=== PATIENT | female | born 1945 | race Caucasian/White ===

== ENCOUNTER → 2016-10-08 | Outpatient (REF) | payer OTHER ==
[~2016-10-08] MED LIST: ASPI81TA83 OR; ATEN100T OR; CALCTAB93 PO; DEPA500T OR; GLUC500T3 PO; LIPI80TA OR; MECL25TA2 OR; PRIL40CA OR; SINGULAR PO; VITAMIN B PO; VITAMIN D PO; [UNRECOGNIZED DRUG - OTHER] PO
[2016-10-08 18:22] LABS: FOLATE 12.4 NG/ML; VITAMIN B12 LEVEL 295 PG/ML
[2016-10-08 18:29] LABS: ALBUMIN 4.2 GM/DL (3.2-5.2); ALBUMIN/GLOBULIN RATIO 1.45 (1.00-1.93); ALKALINE PHOSPHATASE 110 U/L (45-117); ALT/SGPT 26 U/L (12-78); ANION GAP 6 MEQ/L (8-16); AST/SGOT 16 U/L (15-37); BILIRUBIN,TOTAL 0.2 MG/DL (0.2-1.0); BLOOD UREA NITROGEN 12 MG/DL (7-18); CARBON DIOXIDE LEVEL 28 MEQ/L (21-32); CHLORIDE LEVEL 109 MEQ/L (98-107); CREATININE FOR GFR 0.63 MG/DL (0.55-1.02); GLOMERULAR FILTRATION RATE > 60.0 (>39); GLUCOSE, FASTING 102 MG/DL (83-110); POTASSIUM SERUM 4.2 MEQ/L (3.5-5.1); SODIUM LEVEL 143 MEQ/L (136-145); TOTAL PROTEIN 7.1 GM/DL (6.4-8.2)
[2016-10-08 18:34] LABS: BASO % 0.4 % (0.0-1.0); EOS # 0.1 K/mm3 (0.0-0.50); EOS % 1.3 % (0.0-3.0); LARGE UNSTAINED CELL # 0.1 K/mm3 (0.0-0.4); LARGE UNSTAINED CELL % 2.3 % (0.0-4.0); LYMPH # 1.3 K/mm3 (1.5-4.5); LYMPH % 27.9 % (24.0-44.0); MEAN CORPUSCULAR HEMOGLOBIN 29.7 pg (27.0-33.0); MEAN CORPUSCULAR HGB CONC 33.5 g/dl (32.0-36.5); MEAN CORPUSCULAR VOLUME 88.5 fl (80.0-96.0); MONO # 0.2 K/mm3 (0.0-0.8); MONO % 3.5 % (0.0-5.0); NEUTROPHILS % 64.5 % (36.0-66.0); PLATELET COUNT, AUTOMATED 201 k/mm3 (150-450); RED CELL DISTRIBUTION WIDTH 13.3 % (11.5-14.5); WHITE BLOOD COUNT 4.7 K/mm3 (4.0-10.0)
[2016-10-08 19:24] LABS: ERYTHROCYTE SEDIMENTATION RATE 7 mm/hr (0-30)
[2016-10-13 10:39] LABS: ALBUMIN 4.38 GM/DL (3.29-5.55); ALBUMIN % 61.7 % (55.8-66.1); GAMMA GLOBULIN % 14.1 % (11.1-18.8)
== END ==
LOC: M LABNEURO 17:13
PROVIDERS: ATTEND Psychiatry & Neurology Neurology
DX: R51 Headache (principal); R41.3 Other amnesia; Z79.899 Other long term (current) drug therapy

== ENCOUNTER → 2017-08-09 | Outpatient (REF) | payer OTHER ==
[~2017-08-09] MED LIST changes: +LEVO75TA4 PO; +LOSA25TA8 PO
[2017-08-10 19:04] LABS: VITAMIN B12 LEVEL 261 PG/ML (247-911)
== END ==
LOC: M LAB REF 17:41
PROVIDERS: ATTEND Family Medicine
DX: F03.91 Unspecified dementia, unspecified severity, with behavioral disturbance (principal)

== ENCOUNTER 2018-12-06 18:40 | Inpatient (IN) | payer MEDICARE, OTHER ==
[~2018-12-06] VITALS: Ht 162.6 cm; Wt 63.6 kg
[~2018-12-06 18:40] MED LIST changes: +LOSA25TA14 PO; -LOSA25TA8 PO
[2018-12-06] MEDS ORDERED: cbd gummies (18:57)
[2018-12-06 19:22] LABS: BASO % 0.4 % (0.0-1.0); EOS % 0.4 % (0.0-3.0); HEMATOCRIT 35.4 % (36.0-47.0); HEMOGLOBIN 11.8 g/dl (12.0-15.5); LYMPH # 1.6 10^3/uL (1.5-4.5); LYMPH % 29.8 % (24.0-44.0); MEAN CORPUSCULAR HEMOGLOBIN 29.4 pg (27.0-33.0); MEAN CORPUSCULAR HGB CONC 33.3 g/dl (32.0-36.5); MEAN CORPUSCULAR VOLUME 88.1 fl (80.0-96.0); MONO # 0.4 10^3/uL (0.0-0.8); MONO % 6.4 % (0.0-5.0); NEUTROPHILS # 3.5 10^3/uL (1.8-7.7); NEUTROPHILS % 62.6 % (36.0-66.0); PLATELET COUNT, AUTOMATED 250 10^3/uL (150-450); RED BLOOD COUNT 4.02 10^6/uL (4.00-5.40); WHITE BLOOD COUNT 5.5 10^3/uL (4.0-10.0)
[2018-12-06 19:26] LABS: INR 0.96; PARTIAL THROMBOPLASTIN TIME 27.5 SECONDS (25.4-37.6); PROTHROMBIN TIME 12.9 SECONDS (12.1-14.4)
[2018-12-06 19:38] LABS: BLOOD UREA NITROGEN 11 MG/DL (7-18); CALCIUM LEVEL 8.2 MG/DL (8.8-10.2); CARBON DIOXIDE LEVEL 29 MEQ/L (21-32); CHLORIDE LEVEL 108 MEQ/L (98-107); CPK CREATINE PHOSPHOKINASE 150 U/L (26-192); CREATININE FOR GFR 0.79 MG/DL (0.55-1.30); GLOMERULAR FILTRATION RATE > 60.0 (>39); GLUCOSE, FASTING 133 MG/DL (70-100); MB/CK RELATIVE INDEX 1.67 (< OR =4); POTASSIUM SERUM 3.5 MEQ/L (3.5-5.1); SODIUM LEVEL 142 MEQ/L (136-145); TROPONIN I < 0.02 NG/ML (< 0.10)
--- NOTE | 2018-12-06 19:38 | REPVR ---
EXAM: CT Head Without Contrast EXAM DATE/TIME: 12/06/2018 7:19 PM CLINICAL HISTORY: 73 years old, female; Pain; Headache; Additional info: Syncope TECHNIQUE: Axial computed tomography images of the head/brain without contrast. All CT scans at this facility use at least one of these dose optimization techniques: automated exposure control; mA and/or kV adjustment per patient size (includes targeted exams where dose is matched to clinical indication); or iterative reconstruction. COMPARISON: CT Head without contrast 07/28/2017 1:40 PM FINDINGS: Brain: There is parenchymal volume loss. White matter changes are demonstrated in the subcortical, centrum semiovale and periventricular white matter consistent with small vessel white matter angiopathic gliosis. Ventricles: The degree of ventricular dilatation is normal for age. No pathologic enlargement demonstrated. Bones/joints: Unremarkable. No acute fracture. Sinuses: Visualized sinuses are unremarkable. No acute sinusitis. Mastoid air cells: Visualized mastoid air cells are unremarkable. No mastoid effusion. Soft tissues: Unremarkable. IMPRESSION: There is parenchymal volume loss. White matter changes are demonstrated in the subcortical, centrum semiovale and periventricular white matter consistent with small vessel white matter angiopathic gliosis. Electronically signed by: Geoffrey Limon On 12/06/2018 19:38:28 PM
--- NOTE | 2018-12-06 21:21 | ECGEPIP ---
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
[2018-12-06] MEDS ORDERED: CBD GUMMIES PO (21:54)
[2018-12-06] MEDS ORDERED: hydrALAZINE INJ 20 MG/ML VIAL As Ordered ONE (22:53)
[2018-12-06] MEDS ORDERED: hydrALAZINE INJ 20 MG/ML VIAL IV ONE (23:15)
[2018-12-06] MEDS ORDERED: NS 1,000 ML IV SCH (23:24)
[2018-12-06] MEDS ORDERED: hydrALAZINE INJ 20 MG/ML VIAL IV PRN (23:45)
[2018-12-06 23:55] LABS: FREE T4 0.97 NG/DL (0.76-1.46); MAGNESIUM LEVEL 2.4 MG/DL (1.8-2.4)
--- NOTE | 2018-12-07 | HPE ---
DATE OF ADMISSION: 12/06/2018 CHIEF COMPLAINT: Recurrent syncope. HISTORY OF THE PRESENT ILLNESS: The patient is a 73-year-old female, significant past medical history of dementia, who presents to the emergency room accompanied by her with 3-4 episodes of syncope that all occurred today. The patient is a very poor historian, unable to give any history. She is alert and oriented to person only. As per , she had 3-4 syncopal episodes today that did not appear to be preceded by any symptoms. She was caught all three times. As per the , she did not fall or hit the floor. She denies any chest pain, shortness of breath, or palpitations. Again, the patient is very unreliable. She is not aware of where she is at this moment in time. Labs thus far have been unremarkable. She does not take any medications. In the emergency room, her blood pressure was noted to be elevated in systolic 180s; however, states that all of her medications were stopped by her primary care physician several months ago. PAST MEDICAL HISTORY: See history of the present illness. PAST SURGICAL HISTORY: Hysterectomy as well as bowel resection. ALLERGIES: No known drug allergies. SOCIAL HISTORY: She denies tobacco, alcohol, or illicit drug use. FAMILY HISTORY: Noncontributory. HOME MEDICATIONS: None. REVIEW OF SYSTEMS: Unable to complete as the patient has underlying dementia. VITAL SIGNS ON ADMISSION: Temperature 98, pulse of 93, respirations are 16, blood pressure 187/86, saturating at 96% on room air. PHYSICAL EXAM: General: She is a pleasant elderly female in no apparent distress. Head is normocephalic, atraumatic Eyes: Extraocular movements are intact. Pupils equal, round, reactive to light. Neck is supple. No jugular venous pressure (JVP). Lungs: Clear to auscultation. No crackles, wheezes, rales, or rhonchi. Cardiovascular: Regular rate and rhythm. Normal S1, S2. No murmurs, gallops, or rubs. Abdomen: Soft, nontender, nondistended. Positive bowel sounds. No rebound, no guarding. Extremities: No pitting edema or calf tenderness. Skin: Intact. No rashes, lesions, or breakdown. Neurological: Alert and oriented times three. No focal deficit appreciated on the exam. LABS AND IMAGING: Done in the emergency room. Hemoglobin and hematocrit of 11 over 34, platelet count of 250. Coagulation tests (coags) within normal limits. Chemistry shows a BUN and creatinine of 11 over 0.79. Troponins are negative. TSH is 7.2. UA is unremarkable. Fingerstick 143. CT of the head: Parenchymal volume loss, white matter changes demonstrated in the subcortical centrum semiovale and periventricular white matter consistent with small vessel ischemic disease. Chest x-ray shows no acute disease. ASSESSMENT AND PLAN: Recurrent syncope. Differentials include vasovagal versus orthostatics, versus arrhythmia. Rule out transient ischemic attack (TIA), CVA, vertebrobasilar insufficiency. Less likely to be seizures. Rule out acute coronary syndrome (ACS), structural heart disease. Will keep the patient on telemetry. Will get echo, ultrasound carotid Dopplers, MRI. Will check magnesium. Will recycle the troponins as well as serial EKGs. Will gently fluid hydrate. Daily orthostatics. TSH of 7.2. Will check free T4. Dementia, stable. Supportive: Deep vein thrombosis (DVT) prophylaxis: Heparin subcu. Gastrointestinal (GI) prophylaxis: Not indicated. Diet: Regular. MTDD
[2018-12-07] MEDS: HEPARIN SOD (PORCINE) 5000 UNITS/ML VIAL SC SCH ×2 (05:35→14:00)
[2018-12-07] MEDS ORDERED: amLODIPine 5 MG TAB As Ordered ONE (05:49)
[2018-12-07] MEDS: amLODIPine 5 MG TAB PO SCH ×2 (06:00→08:58)
[2018-12-07] MEDS: ACETAMINOPHEN TAB 650MG DOSE (2X325MG) PO PRN (06:04)
[2018-12-07 07:10] LABS: HEMATOCRIT 37.7 % (36.0-47.0); HEMOGLOBIN 12.5 g/dl (12.0-15.5); MEAN CORPUSCULAR HEMOGLOBIN 28.5 pg (27.0-33.0); MEAN CORPUSCULAR HGB CONC 33.2 g/dl (32.0-36.5); MEAN CORPUSCULAR VOLUME 86.1 fl (80.0-96.0); PLATELET COUNT, AUTOMATED 260 10^3/uL (150-450); RED BLOOD COUNT 4.38 10^6/uL (4.00-5.40); WHITE BLOOD COUNT 5.8 10^3/uL (4.0-10.0)
[2018-12-07 07:37] LABS: BLOOD UREA NITROGEN 8 MG/DL (7-18); CALCIUM LEVEL 8.6 MG/DL (8.8-10.2); CARBON DIOXIDE LEVEL 24 MEQ/L (21-32); CHLORIDE LEVEL 111 MEQ/L (98-107); CREATININE FOR GFR 0.59 MG/DL (0.55-1.30); GLOMERULAR FILTRATION RATE > 60.0 (>39); GLUCOSE, FASTING 139 MG/DL (70-100); POTASSIUM SERUM 3.4 MEQ/L (3.5-5.1); SODIUM LEVEL 142 MEQ/L (136-145); TROPONIN I < 0.02 NG/ML (< 0.10)
[2018-12-07] MEDS ORDERED: POTASSIUM CHLORIDE 10 MEQ SR TABLET PO ONE ×2 (08:15→11:30)
--- NOTE | 2018-12-07 08:28 | REP ---
PA AND LATERAL CHEST: 12/06/2018. Comparison portable chest 07/28/2017, PA and lateral 02/05/2011. Clinical history: Syncope. Findings: The lung rodriguez are well inflated and without infiltrate, effusion, atelectasis or mass. The heart, mediastinal and hilar contours are normal. The aorta is tortuous but without gross aneurysm, it is unchanged. No abnormal widening of the mediastinum. Airway intact. Bony thorax with some degenerative changes in the spine and shoulders but without compression deformity of destructive lesion. Right upper quadrant clips from prior cholecystectomy. Impression: 1. No acute cardiopulmonary change. Electronically Signed by Jorge Rae MD 12/07/2018 09:43 P
[2018-12-07 08:30] VITALS: BP_SYST 115; BP_SYST 141; BP_DIAS 58; BP_DIAS 64; BP_DIAS 70
--- NOTE | 2018-12-07 08:46 | REP ---
Bilateral carotid artery duplex ultrasound: Comparison is 02/06/2011. Peak flow velocity analysis: RIGHT LEFT ICA Peak flow velocity cm/sec 72.0 61.5 ICA Diastolic flow velocity cm/sec 17.9 14.8 ICA/CCA Ratio 0.76 0.38 ECA Peak flow velocity cm/sec 117.7 110.3 CCA Peak flow velocity cm/sec 94.5 104.4 There is intimal thickening in the bulbs bilaterally. No other atheromatous plaque is identified. Peak flow velocities are normal bilaterally. The findings indicate less than 50% narrowing bilaterally. There is no stenosis on the right on the left. There is no interval change. There is antegrade flow in the vertebral arteries bilaterally. Electronically Signed by Vick Carlson MD 12/07/2018 08:38 A
[2018-12-07] MEDS ORDERED: amLODIPine 5 MG TAB PO SCH (09:00)
--- NOTE | 2018-12-07 11:16 | REP ---
MR BRAIN WITHOUT CONTRAST: HISTORY: Syncope. COMPARISON: 02/06/2011 Areas of increased signal intensity on T2-weighted images are present in the periventricular and subcortical white matter and hemant. This represents small vessel ischemic disease. There is no intraparenchymal hemorrhage, infarct, mass or midline shift. The ventricular and cortical sulci are dilated consistent with mild volume loss. There is no extracerebral collection. Mucosal thickening is present in the maxillary sinuses. IMPRESSION: Small vessel ischemic disease. Mild volume loss. Electronically Signed by Robby Whitmore MD 12/07/2018 11:21 A
[2018-12-07] MEDS ORDERED: LORazepam 0.5 MG TAB PO ONE (11:30)
[2018-12-07 11:47] LABS: MAGNESIUM LEVEL 2.5 MG/DL (1.8-2.4)
[2018-12-07 14:00] VITALS: BP 145/73
[2018-12-07 15:20] VITALS: BP 144/76
--- NOTE | 2018-12-07 17:03 | IPNPDOC ---
Text Note Date of Service The patient was seen on 12/07/18. NOTE Subjective: Patient is a 73-year-old female with a history of dementia who presented to the hospital yesterday after having 4 presyncopal episodes. Patient's family was in the room and provided most of the history. They said that patient never lost full consciousness. Patient was caught all 4 times prior to hitting the ground. They stated that patient did not complain of any dizzi ness before falling. Patient complains that she feels that she is very shaky and will sometimes have difficulty standing up. Patient's primary care provider had discontinued all medications a while back. Patient's family says patient had been on Aricept and Namenda however, these were discontinued because they were not helping. Review of systems General: Patient denies fevers HEENT: Patient denies headaches Cardiovascular: Patient denies chest pain Respiratory: Patient denies shortness of breath, cough GI: Patient denies abdominal pain, nausea, vomiting, diarrhea : Patient denies pain or difficulty with urination Neurological: Patient denies numbness or tingling in extremities Extremities: Patient denies swelling or pain in extremities Objective: Vitals: (see below) General: During interview and exam, patient was mostly sitting on the bed however, 3 times during exam patient would complain about being shaky and then began to cry. Patient was easily consolable and redirectable. While at rest, patient did not have any tremor. HEENT: Normocephalic, atraumatic, moist mucous membranes. Neck: No JVD or lymphadenopathy Cardiac: RRR, No murmurs Pulm: Clear to auscultation b/l. No wheezing, rhonchi Abd: NT/ND + BS Ext: No edema or cyanosis. Radial, posterior tibial, and dorsalis pedis pulses equal bilaterally. Neuro: Cranial nerves III through XII intact grossly bilaterally. Patient has 5/5 strength in upper and lower extremities. Patient did not have any pronator drift or tremor. Finger to nose testing was difficult as patient was unable to follow directions. Labs (see below) Images: An MRI of the brain performed on 12/07/2018 showed small vessel ischemic disease and mild volume loss. A carotid ultrasound performed on 12/07/2017 showed no significant stenosis and anterograde flow of the vertebral arteries bilaterally. A chest x-ray performed on 12/06/2018 showed no acute cardiopulmonary change. A head CT performed on 12/06/2017 showed parenchymal volume loss, weight matter changes demonstrated in the subcortical, centrum semiovale, and periventricular white matter consistent with small vessel white matter angiopathic gliosis Assessment/Plan 1. Recurrent presyncopal episodes. Orthostatic blood pressure was done and was positive today. Patient was given IV fluid. Patient's syncopal episodes at home were not brought on by going from seated to standing. Patient had been standing prior to the falls. MRI carotid ultrasound were negative. Patient will be on telemetry for 48-72 hours to rule out arrhythmia as a cause. Echocardiogram has been done and read is pending. We will continue to monitor the patient. Patient is very anxious which may have played a role in patient's episodes. 2. Dementia. This is stable at this time and we will continue to monitor. DVT prophy: Heparin 5000 units subcutaneous every 8 hours Dispo: Pending clinical improvement VS,Fishbone, I+O VS, Fishbone, I+O Laboratory Tests 12/06/18 18:59 Red Blood Count 4.02, Mean Corpuscular Volume 88.1, Mean Corpuscular Hemoglobin 29.4, Mean Corpuscular Hemoglobin Concent 33.3, Red Cell Distribution Width 13.9, Neutrophils (%) (Auto) 62.6, Lymphocytes (%) (Auto) 29.8, Monocytes (%) (Auto) 6.4 H, Eosinophils (%) (Auto) 0.4, Basophils (%) (Auto) 0.4, Neutrophils # (Auto) 3.5, Lymphocytes # (Auto) 1.6, Monocytes # (Auto) 0.4, Eosinophils # (A uto) 0.0, Basophils # (Auto) 0.0, Calcium Level 8.2 L, Total Creatine Kinase 150 12/07/18 06:26 Red Blood Count 4.38, Mean Corpuscular Volume 86.1, Mean Corpuscular Hemoglobin 28.5, Mean Corpuscular Hemoglobin Concent 33.2, Red Cell Distribution Width 13.8, Calcium Level 8.6 L Vital Signs Date Time Temp Pulse Resp B/P (MAP) Pulse Ox O2 Delivery O2 Flow Rate FiO2 12/07/18 15:20 97.7 89 18 144/76 (98) 95 12/07/18 05:27 Room Air GME ATTESTATION GME ATTESTATION My faculty preceptor for this patient encounter was physically present during the encounter and was fully available. All aspects of the patient interview, examination, medical decision making process, and medical care plan development were reviewed and approved by the faculty preceptor. The faculty preceptor is aware and concurs with the plan as stated in the body of this note and will attest to such by his/her cosignature. ATTENDING NOTE I have both independently examined this patient as well as reviewed the note I have discussed in detail the findings and plan of treatment as documented in the note. I will continue to follow the patient and offer further guidance to the patients care as necessary during this hospital stay. JOESPH Desouza MD, DO Dec 07, 2018 17:03 OLIVER DAVIDSON MD Dec 07, 2018 19:18
--- NOTE | 2018-12-07 17:39 | ECGEPIP ---
Stationary ECG Study 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
--- NOTE | 2018-12-07 20:55 | ECHO ---
DATE OF PROCEDURE: 12/07/2018 REFERRING PHYSICIAN: Kan Bennett MD [employer]LOADING EQUIPMENT TENDER: Fransisco Shepherd MD PATIENT LOCATION: Room: ED #7. REASON FOR ECHOCARDIOGRAM: Syncope. 2D MEASUREMENTS: IVS: 0.98 cm LV: 4.1 cm LVPW: 1.0 cm LA: 3.5 cm Aorta: 3.0 cm IVC: 1.9 cm DOPPLER MEASUREMENTS: Peak velocity across the aortic valve: 1.1 m/s Peak velocity across the LVOT: 0.9 m/s Mitral E: 0.7, Mitral A: 1.0, with a ratio of 0.7 Maximum tricuspid valve velocity: 2.3 m/s 2D COMMENTS: 1. Normal left ventricular size, wall thickness and normal global left ventricular systolic function. The estimated left ventricular systolic ejection fraction is 65 to 70%. 2. Normal left atrium. The right atrium and the right ventricle appeared to be minimally enlarged on limited views, but seem to be off axis. 3. Normal aortic root. 5. No pericardial effusion seen. 6. Minimally calcified aortic valve with normal leaflet excursion. Mildly calcified mitral annulus with normal anterior mitral valve leaflet motion. Normal tricuspid valve. The pulmonic valve and proximal pulmonary artery branches were not well visualized. 7. The inferior vena cava was normal in size, central venous pressure is probably normal. DOPPLER: It detects mild aortic regurgitation, trace mitral regurgitation, and trace tricuspid regurgitation. The calculated pulmonary artery systolic pressure was normal. Abnormal relaxation pattern was noted across the mitral valve leaflets as well as the mitral valve annulus consistent with some features of left ventricular diastolic dysfunction. IMPRESSION: 1. Global left ventricular systolic function. There are features of left ventricular diastolic dysfunction manifested by abnormal relaxation. 2. Aortic valve sclerosis with mild aortic regurgitation, but no aortic stenosis. 3. Trace mitral regurgitation with mitral annulus calcification. 4. Trace tricuspid regurgitation with a normal calculated pulmonary artery systolic pressure.
[2018-12-07 22:00] VITALS: BP 132/70
[2018-12-08] MEDS: HEPARIN SOD (PORCINE) 5000 UNITS/ML VIAL SC SCH ×4 (00:36→21:14)
[2018-12-08 06:00] VITALS: BP 160/80
[2018-12-08 06:23] LABS: HEMATOCRIT 37.5 % (36.0-47.0); HEMOGLOBIN 12.3 g/dl (12.0-15.5); MEAN CORPUSCULAR HEMOGLOBIN 28.5 pg (27.0-33.0); MEAN CORPUSCULAR HGB CONC 32.8 g/dl (32.0-36.5); MEAN CORPUSCULAR VOLUME 86.8 fl (80.0-96.0); PLATELET COUNT, AUTOMATED 224 10^3/uL (150-450); RED BLOOD COUNT 4.32 10^6/uL (4.00-5.40); WHITE BLOOD COUNT 4.5 10^3/uL (4.0-10.0)
[2018-12-08 06:52] LABS: BLOOD UREA NITROGEN 7 MG/DL (7-18); CALCIUM LEVEL 8.5 MG/DL (8.8-10.2); CARBON DIOXIDE LEVEL 23 MEQ/L (21-32); CHLORIDE LEVEL 110 MEQ/L (98-107); CREATININE FOR GFR 0.58 MG/DL (0.55-1.30); GLOMERULAR FILTRATION RATE > 60.0 (>39); GLUCOSE, FASTING 134 MG/DL (70-100); MAGNESIUM LEVEL 2.5 MG/DL (1.8-2.4); POTASSIUM SERUM 3.7 MEQ/L (3.5-5.1); SODIUM LEVEL 142 MEQ/L (136-145)
[2018-12-08 07:00] VITALS: BP_SYST 172; BP_SYST 180; BP_SYST 182; BP_DIAS 80; BP_DIAS 90
[2018-12-08 08:26] VITALS: BP 153/102
[2018-12-08] MEDS: amLODIPine 5 MG TAB PO SCH (08:58)
[2018-12-08 10:48] LABS: CPK CREATINE PHOSPHOKINASE 94 U/L (26-192); MB/CK RELATIVE INDEX 1.38 (< OR =4); TROPONIN I < 0.02 NG/ML (< 0.10)
[2018-12-08 14:00] VITALS: BP 136/66
--- NOTE | 2018-12-08 14:47 | IPNPDOC ---
Text Note Date of Service The patient was seen on 12/08/18. NOTE Subjective: Patient is a 73-year-old female who presented with 4 presyncopal episodes at home. Patient never lost consciousness and patient was caught before hitting the ground on all 4 occasions. Patient was very anxious yesterday. Today patient was complaining of chest pain especially with taking a deep breath. Patient was very anxious during this episode. This episode resolved with deep breathing. When I went back to Dr. the patient later in the morning, patient was smiling and feeling much better. Patient has had no events on telemetry and has not felt lightheaded in the hospital. Review of systems General: Patient denies fevers HEENT: Patient denies headaches Cardiovascular: Patient denies chest pain Respiratory: Patient denies shortness of breath, cough GI: Patient denies abdominal pain, nausea, vomiting, diarrhea : Patient denies pain or difficulty with urination Neurological: Patient denies numbness or tingling in extremities Extremities: Patient denies swelling or pain in extremities Objective: Vitals: (see below) General: No acute distress, laying comfortably in bed. HEENT: Normocephalic, atraumatic, moist mucous membranes. Neck: No JVD or lymphadenopathy Cardiac: RRR, No murmurs Pulm: Clear to auscultation b/l. No wheezing, rhonchi Abd: NT/ND + BS Ext: No edema or cyanosis. Radial, posterior tibial, and dorsalis pedis pulses equal bilaterally. Labs (see below) Images: No new imaging is been performed. Assessment/Plan 1. Recurrent presyncopal episodes. Orthostatic blood pressure was done and was negative today. Patient is doing well today. Patient is very anxious. Echocardiogram read was normal. Telemetry is been normal. All other tests have been normal. We will evaluate on telemetry until tomorrow and if there are no events, patient will be discharged tomorrow. 2. Chest pain. Cardiac marker panel was negative. D-dimer was negative. Patient seems to have the pain only when the patient is anxious. This pain resolved and patient comes down. 3. Dementia. Patient's symptoms seem to be caused by increased anxiety and depression because of the patient's dementia. We have consulted psychiatry to see the patient. We appreciate their help caring for the patient. DVT prophy: Heparin 5000 units every 8 hours Dispo: Pending clinical improvement. Plan to discharge tomorrow. VS,Fishbone, I+O VS, Fishbone, I+O Laboratory Tests 12/08/18 06:02 Red Blood Count 4.32, Mean Corpuscular Volume 86.8, Mean Corpuscular Hemoglobin 28.5, Mean Corpuscular Hemoglobin Concent 32.8, Red Cell Distribution Width 14.2, Calcium Level 8.5 L Vital Signs Date Time Temp Pulse Resp B/P (MAP) Pulse Ox O2 Delivery O2 Flow Rate FiO2 12/08/18 08:58 104 153/102 12/08/18 06:00 98.0 18 96 12/07/18 05:27 Room Air I&O- Last 24 Hours up to 6 AM 12/08/18 05:59 Intake Total 1660 ml Output Total 300 ml Balance 1360 ml GME ATTESTATION GME ATTESTATION My faculty preceptor for this patient encounter was physically present during the encounter and was fully available. All aspects of the patient interview, examination, medical decision making process, and medical care plan development were reviewed and approved by the faculty preceptor. The faculty preceptor is aware and concurs with the plan as stated in the body of this note and will attest to such by his/her cosignature. ATTENDING NOTE I have both independently examined this patient as well as reviewed the note I have discussed in detail the findings and plan of treatment as documented in the note. I will continue to follow the patient and offer further guidance to the patients care as necessary during this hospital stay. JOESPH Desouza MD, DO Dec 08, 2018 14:47 OLIVER DAVIDSON MD Dec 09, 2018 07:24
[2018-12-08] MEDS: ACETAMINOPHEN TAB 650MG DOSE (2X325MG) PO PRN (20:10)
[2018-12-08 22:00] VITALS: BP 143/67
[2018-12-09] MEDS: HEPARIN SOD (PORCINE) 5000 UNITS/ML VIAL SC SCH (05:59)
[2018-12-09 06:00] VITALS: BP 156/76
[2018-12-09 06:12] LABS: HEMATOCRIT 35.9 % (36.0-47.0); HEMOGLOBIN 11.8 g/dl (12.0-15.5); MEAN CORPUSCULAR HEMOGLOBIN 28.7 pg (27.0-33.0); MEAN CORPUSCULAR HGB CONC 32.9 g/dl (32.0-36.5); MEAN CORPUSCULAR VOLUME 87.3 fl (80.0-96.0); PLATELET COUNT, AUTOMATED 213 10^3/uL (150-450); RED BLOOD COUNT 4.11 10^6/uL (4.00-5.40)
[2018-12-09 06:30] VITALS: BP_SYST 142; BP_SYST 148; BP_DIAS 72; BP_DIAS 78; BP_DIAS 80
[2018-12-09 06:44] LABS: BLOOD UREA NITROGEN 11 MG/DL (7-18); CALCIUM LEVEL 8.4 MG/DL (8.8-10.2); CARBON DIOXIDE LEVEL 25 MEQ/L (21-32); CHLORIDE LEVEL 110 MEQ/L (98-107); CREATININE FOR GFR 0.64 MG/DL (0.55-1.30); GLOMERULAR FILTRATION RATE > 60.0 (>39); GLUCOSE, FASTING 130 MG/DL (70-100); MAGNESIUM LEVEL 2.5 MG/DL (1.8-2.4); POTASSIUM SERUM 3.8 MEQ/L (3.5-5.1); SODIUM LEVEL 142 MEQ/L (136-145)
[2018-12-09 08:30] VITALS: BP 148/80
[2018-12-09] MEDS: amLODIPine 5 MG TAB PO SCH (08:30)
[2018-12-09] MEDS ORDERED: AMLO5TAB6 PO (12:05)
--- NOTE | 2018-12-09 19:11 | DSES ---
DATE OF ADMISSION: 12/06/2018 DATE OF DISCHARGE: 12/09/2018 PRIMARY CARE PROVIDER: Cecil Childs MD FINAL DIAGNOSES: 1. Orthostasis. 2. Recurrent near syncopal episodes. 3. Anxiety. 4. Chest pain. 5. Dementia. HISTORY OF PRESENT ILLNESS: This is a 73-year-old female patient with underlying medical history of dementia, who presented to the emergency room accompanied by with three to four episodes of near syncopal episode. On the day of admission, the patient is a very poor historian and unable to provide any history. The patient is alert and oriented to person only. As per , the patient has had about three to four syncopal episodes on the day of admission, but did not appear to appreciate any symptoms. Was caught all three times and did not suffer any injury. The patient was hypertensive in the emergency room. The stated that the patient's medications were stopped by the primary care provider. HOSPITAL COURSE: The patient was admitted to the hospital. CT of the head, carotid ultrasound, echocardiogram, MRI of the brain. The patient was found to be initially orthostatic and was given IV fluids. Blood pressure medication was also added. Physical therapy (PT) has been ordered. The patient was a bit anxious. Counseling service was provided. D-dimer is negative. Serial cardiac enzymes negative. The patient currently feels comfortable. In a good mood. Denies any chest pain, pressure or discomfort. Back to baseline and ready to be discharged for further care. Passed physical therapy (PT). VITAL SIGNS: Temperature 97.9, pulse 83, respirations 18, blood pressure 156/76, pulse oximetry 97% on room air. LABORATORY: WBC 4, hemoglobin and hematocrit 11.8/35.9, platelets 213. Chemistry: Sodium 142, potassium 3.8, chloride 110, bicarbonate 25, BUN 11, creatinine 0.64. PHYSICAL EXAMINATION: GENERAL: The patient is alert, comfortable, in no acute distress. HEENT: Normocephalic, atraumatic. PULMONARY: Bilaterally clear. CARDIAC: Regular. S1, S2. No murmurs detected. ABDOMEN: Soft, nontender. Positive bowel sounds. EXTREMITIES: No clubbing, cyanosis or edema. DISCHARGE MEDICATIONS: - Norvasc 5 mg by mouth daily DISCHARGE INSTRUCTIONS: Please see primary care provider in 7 days. Fall precautions. Further blood pressure management as per primary care provider. Return if symptoms worsen. Encourage oral hydration.
== END 2018-12-09 13:39 | disposition home or self-care (01) | DRG 312 ==
LOC: EDBD 18:40 → M ED 18:40 → M ED INP 23:24 → M MSPAV 12-07 15:16
PROVIDERS: ADMIT Internal Medicine; ATTEND Hospitalist
DX: I95.1 Orthostatic hypotension (principal); F03.90 Unspecified dementia, unspecified severity, without behavioral disturbance, psychotic disturbance, mood disturbance, and anxiety

== ENCOUNTER → 2019-04-04 | Outpatient (CLI) | payer MEDICARE, MEDICAID ==
[~2019-04-04] MED LIST changes: +AMLO5TAB6 PO; +CBD GUMMIES PO; +SERT25TA88 PO; +TRAZ-252 PO; +cbd gummies
--- NOTE | 2019-04-05 07:47 | REP ---
Left knee series: Five views. History: Pain in the left knee. Findings: Five views of the left knee demonstrate diffuse osteopenia. There is three compartment osteoarthritis moderate in degree. There is no evidence of fracture. There is fullness in the suprapatellar bursa suggestive of a joint effusion. The study is otherwise unremarkable. Impression: Three compartment osteoarthritis, osteopenia, probable joint effusion. No fracture seen. Electronically Signed by Mark Guevara MD 04/05/2019 07:39 A
== END ==
LOC: M ADAMS 10:12
PROVIDERS: ATTEND Physician Assistant Medical
DX: M17.12 Unilateral primary osteoarthritis, left knee (principal); M25.762 Osteophyte, left knee

== ENCOUNTER 2019-04-10 07:59 | Day surgery (SDC) | payer MEDICARE, MEDICAID ==
[~2019-04-10] VITALS: Ht 167.6 cm; Wt 73.5 kg
[~2019-04-10 07:59] MED LIST changes: +ACETAMINOPHEN 325 MG TAB PO PRN; +BSS with VANC/TOB/EPI for EYE CASES IR ONE; +CYCLOPENTOLATE 2% OPHTH SOLN 2ML BTL OS ONE; +HEALON DUET PRO(HEALON 10MG/ML 0.55ML & HEALON ENDOCOAT 30MG/ML 0.85ML) As Ordered ONE; +LIDOCAINE 1% SDV 5 ML VIAL As Ordered ONE; +LIDOCAINE 3.5 % 1ML OPHTH TOPICAL GEL OU ONE; +MIDAZOLAM INJ 2 MG/2 ML VIAL (J2250) As Ordered ONE; +MOXIFLOXACIN IN BSS 0.25MG/0.25ML INTRACAMERAL INJ (OR EYE ONLY)(J2280) As Ordered ONE; +OFLOXACIN 0.3 % (OCUFLOX) OPTH SOL 5ML OS ONE; +ONDANSETRON 4MG/2ML VIAL (J2405) As Ordered ONE; +PHENYLEPHRINE 2.5% OPHTH SOL 2ML OS ONE; +PHENYLEPHRINE HCL 10 % OPHTH. SOL 5ML OS PRN; +POVIDONE-IODINE 5% OPHTH PREP SOL 30ML As Ordered ONE; +SERT25TA21 PO; -SERT25TA88 PO; +TRIAMCINOLONE PRES FR 40 MG/ML 1ML(TRIESENCE)(OR EYE ONLY)(J3300 PER 1MG) As Ordered ONE; +TROPICAMIDE 1% OPHTH SOLN 2ML OS ONE; +fentaNYL 100 MCG/2 ML INJECTION (J3010) As Ordered ONE
[2019-04-10] MEDS ORDERED: traZODone 25MG PER 1/2 TABLET PO ONE (11:00)
[2019-04-10] MEDS ORDERED: AcetaZOLAMIDE 500 MG ER CAP PO ONE (12:45)
[2019-04-10] MEDS ORDERED: TRIMETHOBENZAMIDE 300 MG CAP PO PRN (12:45)
[2019-04-10 13:10] VITALS: BP 150/69
== END 2019-04-10 12:15 | disposition home or self-care (01) ==
LOC: M SDC 07:59
PROVIDERS: ATTEND Ophthalmology
DX: H25.9 Unspecified age-related cataract (principal); I10 Essential (primary) hypertension; D64.9 Anemia, unspecified; F41.9 Anxiety disorder, unspecified; F03.90 Unspecified dementia, unspecified severity, without behavioral disturbance, psychotic disturbance, mood disturbance, and anxiety; G47.33 Obstructive sleep apnea (adult) (pediatric); Z79.899 Other long term (current) drug therapy
CPT/HCPCS: 66984; 67515; 92015; J2250; J2280; J2405; J3010; J3300; V2632

== ENCOUNTER 2019-05-22 15:12 | Inpatient (IN) | payer MEDICARE, MEDICAID ==
[~2019-05-22] VITALS: Ht 162.6 cm; Wt 73.9 kg
[2019-05-22] VITALS (7 sets, daily range): BP systolic 132–188; BP diastolic 62–96
[~2019-05-22 15:12] MED LIST changes: -ACETAMINOPHEN 325 MG TAB PO PRN; -BSS with VANC/TOB/EPI for EYE CASES IR ONE; -CYCLOPENTOLATE 2% OPHTH SOLN 2ML BTL OS ONE; -HEALON DUET PRO(HEALON 10MG/ML 0.55ML & HEALON ENDOCOAT 30MG/ML 0.85ML) As Ordered ONE; -LIDOCAINE 1% SDV 5 ML VIAL As Ordered ONE; -LIDOCAINE 3.5 % 1ML OPHTH TOPICAL GEL OU ONE; -MIDAZOLAM INJ 2 MG/2 ML VIAL (J2250) As Ordered ONE; -MOXIFLOXACIN IN BSS 0.25MG/0.25ML INTRACAMERAL INJ (OR EYE ONLY)(J2280) As Ordered ONE; -OFLOXACIN 0.3 % (OCUFLOX) OPTH SOL 5ML OS ONE; -ONDANSETRON 4MG/2ML VIAL (J2405) As Ordered ONE; -PHENYLEPHRINE 2.5% OPHTH SOL 2ML OS ONE; -PHENYLEPHRINE HCL 10 % OPHTH. SOL 5ML OS PRN; -POVIDONE-IODINE 5% OPHTH PREP SOL 30ML As Ordered ONE; -TRIAMCINOLONE PRES FR 40 MG/ML 1ML(TRIESENCE)(OR EYE ONLY)(J3300 PER 1MG) As Ordered ONE; -TROPICAMIDE 1% OPHTH SOLN 2ML OS ONE; -fentaNYL 100 MCG/2 ML INJECTION (J3010) As Ordered ONE
[2019-05-22] MEDS ORDERED: HYDR-4514 PO (15:27)
[2019-05-22] MEDS ORDERED: AMOX500T PO (15:27)
[2019-05-22] MEDS ORDERED: LIDOCAINE 2% 5ML JELLY UROJET TOP ONE (15:45)
--- NOTE | 2019-05-22 16:13 | REP ---
CT head without contrast Indication: Syncope. Comparison: CT head of 12/06/2018. Technique: Axial CT of the head was performed without contrast. Findings: There is no soft tissue swelling or calvarial fracture. There is a small area of encephalomalacia within the right parietal region which is new since the prior study. There are similar scattered hypodensities within the periventricular white matter which are nonspecific but suggestive of microvascular ischemic disease. There is similar prominence of the ventricles consistent with cerebral and cerebellar volume loss. There is no mass effect. The basal cisterns are patent. There is no midline shift. There is no hydrocephalus. The visualized paranasal sinuses and mastoid air cells are clear. 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 Otherwise, similar white matter changes. Electronically Signed by Yaneth Mccarty MD 05/22/2019 04:04 P
[2019-05-22 16:32] LABS: BASO % 0.4 % (0.0-1.0); EOS % 0.4 % (0.0-3.0); HEMATOCRIT 36.7 % (36.0-47.0); HEMOGLOBIN 12.1 g/dl (12.0-15.5); LYMPH # 1.6 10^3/uL (1.5-4.5); LYMPH % 29.2 % (24.0-44.0); MEAN CORPUSCULAR HEMOGLOBIN 28.5 pg (27.0-33.0); MEAN CORPUSCULAR VOLUME 86.6 fl (80.0-96.0); MONO # 0.4 10^3/uL (0.0-0.8); MONO % 6.3 % (0.0-5.0); NEUTROPHILS # 3.5 10^3/uL (1.8-7.7); NEUTROPHILS % 63.3 % (36.0-66.0); PLATELET COUNT, AUTOMATED 203 10^3/uL (150-450); RED BLOOD COUNT 4.24 10^6/uL (4.00-5.40); WHITE BLOOD COUNT 5.6 10^3/uL (4.0-10.0)
[2019-05-22 16:44] LABS: INR 0.95; PROTHROMBIN TIME 12.4 SECONDS (11.8-14.0)
[2019-05-22] MEDS ORDERED: NORV5TAB PO (16:47)
[2019-05-22] MEDS ORDERED: BENA25CA4 PO (16:47)
[2019-05-22] MEDS ORDERED: OPTI0.5D5 OU (16:56)
--- NOTE | 2019-05-22 17:01 | REP ---
CHEST, SINGLE VIEW: Single view of the chest is performed. There is no acute infiltrate or pulmonary edema. Heart does not appear to be significantly enlarged. There is some tortuosity of the thoracic aorta. IMPRESSION: No acute infiltrate. Electronically Signed by Vick Hernandez MD 05/23/2019 11:35 P
[2019-05-22 17:09] LABS: BLOOD UREA NITROGEN 17 MG/DL (7-18); CARBON DIOXIDE LEVEL 28 MEQ/L (21-32); CHLORIDE LEVEL 106 MEQ/L (98-107); CK-MB VALUE MASS 1.3 NG/ML (<3.6); CPK CREATINE PHOSPHOKINASE 113 U/L (26-192); CREATININE FOR GFR 0.78 MG/DL (0.55-1.30); FREE T4 0.77 NG/DL (0.76-1.46); GLOMERULAR FILTRATION RATE > 60.0 (>39); GLUCOSE, FASTING 119 MG/DL (70-100); MAGNESIUM LEVEL 2.6 MG/DL (1.8-2.4); MB/CK RELATIVE INDEX 1.15 (< OR =4); POTASSIUM SERUM 3.7 MEQ/L (3.5-5.1); SODIUM LEVEL 141 MEQ/L (136-145); TROPONIN I < 0.02 NG/ML (< 0.10)
--- NOTE | 2019-05-22 17:14 | REP ---
RIGHT HAND, FOUR VIEWS: Four views of the right hand are performed. There is no acute fracture or dislocation. There is narrowing between the scaphoid and trapezium as well as between the trapezium and base of first metacarpal. Oval periarticular calcification is seen at the base of the thumb. This has a maximum diameter of 9 mm. There is mild diffuse narrowing of the metacarpal phalangeal joints with a more moderate to severe degree of joint space narrowing of the proximal distal interphalangeal joints. Large spurs are seen at the base of the distal phalanges. There appears to be erosive component to the joint space narrowing at the 2nd through 5 distal interphalangeal joints. IMPRESSION: Degenerative changes without evidence of fracture or dislocation. Electronically Signed by Vick Hernandez MD 05/23/2019 11:36 P
[2019-05-22] MEDS ORDERED: ACETAMINOPHEN TAB 650MG DOSE (2X325MG) PO PRN (17:45)
--- NOTE | 2019-05-22 18:48 | HPEPDOC ---
General Date of Admission 05/22/19 Date of Service: May 22, 2019 Chief Complaint The patient is a 74-year-old female admitted with a reason for visit of Syncopal Episode. History of Present Illness 74-year-old female with past medical history of hypertension, dementia presented to the ER after she had a syncopal event. According to the patient's she had 2 events over the last 24 hours. This morning, the patient was gardening with her healthcare aide. She then came inside and was getting a drink of water when she syncopized and was about to fall to the ground. The patient's healthcare aide caught her before she fell. According to the patient's the patient was unresponsive for about 2-3 minutes. However, her blood pressure was stable and she was breathing according to a friend who is an EMT and was present. Upon arrival of EMS, the patient's vital signs are stable as well as he r glucose level. The patient's history is limited due to her dementia. She denies any complaints of fevers, chills, chest pain, palpitations, abdominal pain, or any nausea/vomiting/diarrhea. Home Medications Scheduled Amlodipine Besylate (Norvasc) 5 Mg Tablet, 5 MG PO DAILY, (Reported) Amoxicillin (Amoxicillin) 500 Mg Tablet, 500 MG PO QID, (Reported) STARTED TAKING 2 DAYS AGO, PRESCRIBED FROM DENTIST PRECAUTION FOR TOOTH EXTRACTION. [Cbd Gummies] , 1 CHEW PO Q6H, (Reported) Scheduled PRN Carboxymethylcellulos/Glycerin (Refresh Optive Eye Drops) 15 Ml Drops, 1 ARJUN OU QID PRN for DRY EYES, (Reported) Diphenhydramine HCl (Benadryl) 25 Mg Capsule, 25 MG PO DAILY PRN for ALLERGIES, (Reported) Hydrocodone/Acetaminophen (Hydrocodone-Acetamin 7.5-325) 1 Each Tablet, 7.5 MG PO TID PRN for PAIN, (Reported) Allergies Coded Allergies: No Known Allergies (Verified , 04/10/19) Past Medical History Medical History As noted in HPI. Surgical History History of hysterectomy, bowel resection Social History * Smoker: Denies Alcohol: Denies Drugs: denies Review of Systems Other systems 10 point review of systems Limited secondary to underlying dementia. Physical Examination General Exam: Positive: Alert, Cooperative, No Acute Distress Eye Exam: Positive: PERRLA, Conjunctiva & lids normal, EOMI ENT Exam: Positive: Atraumatic, Mucous membr. moist/pink Neck Exam: Negative: JVD Chest Exam: Positive: Clear to auscultation, Normal air movement Heart Exam: Positive: Rate Normal, Normal S1, Normal S2 Abdomen Exam: Positive: Soft; Negative: Tenderness Extremity Exam: Negative: Tenderness, Swelling Neuro Exam: Positive: Normal Speech, Strength at 5/5 X4 ext, Normal Tone, Sensation Intact, Cranial Nerves 3-12 NL Psych Exam: Positive: Other (oriented to person, place, but not time or situation) Vital Signs Vital Signs Date Time Temp Pulse Resp B/P (MAP) Pulse Ox O2 Delivery O2 Flow Rate FiO2 05/22/19 16:45 78 135/78 (97) 96 Room Air 05/22/19 15:15 98.0 18 Laboratory Data Labs 24H Laboratory Tests 2 05/22/19 15:31: Immature Granulocyte % (Auto) 0.4, White Blood Count 5.6, Red Blood Count 4.24, Hemoglobin 12.1, Hematocrit 36.7, Mean Corpuscular Volume 86.6, Mean Corpuscular Hemoglobin 28.5, Mean Corpuscular Hemoglobin Concent 33.0, Red Cell Distribution Width 13.9, Platelet Count 203, Neutrophils (%) (Auto) 63.3, Lymphocytes (%) (Auto) 29.2, Monocytes (%) (Auto) 6.3H, Eosinophils (%) (Auto) 0.4, Basophils (%) (Auto) 0.4, Neutrophils # (Auto) 3.5, Lymphocytes # (Auto) 1.6, Monocytes # (Auto) 0.4, Eosinophils # (Auto) 0.0, Basophils # (Auto) 0.0, Nucleated Red Blood Cells % (auto) 0.0, Prothrombin Time 12.4, Prothromb Time International Ratio 0.95, Activated Partial Thromboplast Time 27.0 05/22/19 15:37: Urine Color YELLOW, Urine Appearance CLOUDYH, Urine pH 5.0, Urine Specific [place] 1.016, Urine Protein NEGATIVE, Urine Glucose (UA) NEGATIVE, Urine Ketones NEGATIVE, Urine Blood NEGATIVE, Urine Nitrite NEGATIVE, Urine Bilirubin NEGATIVE, Urine Urobilinogen 0.2, Urine Leukocyte Esterase NEGATIVE, Urine WBC (Auto) 0, Urine RBC (Auto) 0, Urine Hyaline Casts (Auto) 0, Urine Bacteria (Auto) NEGATIVE, Urine Squamous Epithelial Cells 0, Urine Mucus (Auto) LARGE, Urine Sperm (Auto) 05/22/19 16:07: Anion Gap 7L, Glomerular Filtration Rate > 60.0, Lactic Acid Level 0.8, Blood Urea Nitrogen 17, Creatinine 0.78, Sodium Level 141, Potassium Level 3.7, Chloride Level 106, Carbon Dioxide Level 28, Calcium Level 9.0, Total Creatine Kinase 113, Magnesium Level 2.6H, Creatine Kinase MB 1.3, Creatine Kinase MB Relative Index 1.15, Troponin I < 0.02, Thyroid Stimulating Hormone (TSH) 3.760H, Free Thyroxine 0.77 05/22/19 17:11: Bedside Glucose (Misc Panel) 118H CBC/BMP Laboratory Tests 05/22/19 15:31 Red Blood Count 4.24, Mean Corpuscular Volume 86.6, Mean Corpuscular Hemoglobin 28.5, Mean Corpuscular Hemoglobin Concent 33.0, Red Cell Distribution Width 13.9, Neutrophils (%) (Auto) 63.3, Lymphocytes (%) (Auto) 29.2, Monocytes (%) (Auto) 6.3 H, Eosinophils (%) (Auto) 0.4, Basophils (%) (Auto) 0.4, Neutrophils # (Auto) 3.5, Lymphocytes # (Auto) 1.6, Monocytes # (Auto) 0.4, Eosinophils # (Auto) 0.0, Basophils # (Auto) 0.0 05/22/19 16:07 Calcium Level 9.0, Total Creatine Kinase 113 Plan / VTE VTE Prophylaxis Ordered?: Yes Plan Plan Syncopal Episode of Unclear Etiology CT Head with chronic infarct noted, no acute findings--NIHSS Score:0 We will admit to telemetry 2D ECHO, U/S Carotids, Orthostatic vitals ordered We will cont to monitor the patient PT ordered for functional optimization HTN Will hold Norvasc for now until orthostatics are negative Dementia complicating care DVT Prophylaxis Heparin SONIA BERUMEN MD May 22, 2019 18:48
[2019-05-22] MEDS ORDERED: amLODIPine 5 MG TAB PO ONE (19:45)
--- NOTE | 2019-05-22 20:49 | ECGEPIP ---
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
[2019-05-22] MEDS: HEPARIN SOD (PORCINE) 5000 UNITS/ML VIAL SC SCH (21:48)
--- NOTE | 2019-05-22 21:49 | REPVR ---
EXAM: US Duplex Bilateral Extracranial Arteries EXAM DATE/TIME: 05/22/2019 8:56 PM CLINICAL HISTORY: 74 years old, female; Syncope and collapse; Additional info: Syncopal episodes TECHNIQUE: Imaging protocol: Real-time Duplex ultrasound scan of the Bilateral carotid and vertebral arteries combining cheung scale, color Doppler and spectral waveform analysis. COMPARISON: 12/07/18 FINDINGS: Right common carotid artery: Unremarkable. No occlusion or stenosis. Waveforms are normal. Right internal carotid artery: Mild atheromatous plaque. No occlusion or stenosis. Waveforms are normal. Right ICA/CCA ratio: 0.9 Right external carotid artery: No stenosis in the origin. Right vertebral artery: Unremarkable. Antegrade flow Left common carotid artery: Unremarkable. No occlusion or stenosis. Waveforms are normal. Left internal carotid artery: Mild atheromatous plaque. No occlusion or stenosis. Waveforms are normal. Left ICA/CCA ratio: 0.7 Left external carotid artery: No stenosis in the origin. Left vertebral artery: Unremarkable. Antegrade flow. IMPRESSION: Mild atherosclerosis with less than 50% stenosis bilaterally. COMMENT: Carotid Stenosis Reference using SRU criteria: Mild: less than 50% stenosis. ICA PSV is less than 125 cm/second and plaque or intimal thickening is visible. Moderate: 50-69% stenosis. ICA PSV is 125 to 230 cm/second and plaque is visible. Severe: 70-94% stenosis. ICA PSV is more than 230 cm/second and visible plaque and lumen narrowing are seen. Near occlusion: 95-99% stenosis. ICA PSV is variable and significant plaque and luminal narrowing are seen. Occluded: 100% stenosis. No flow identified. Electronically signed by: Reva Almonte On 05/22/2019 21:49:30 PM
[2019-05-22] MEDS ORDERED: SLF 3 ML SYR IV PRN (22:15)
[2019-05-23 04:00] VITALS: BP 152/67
[2019-05-23] MEDS: SLF 3 ML SYR IV SCH ×3 (05:42→20:14)
[2019-05-23 05:44] LABS: HEMATOCRIT 39.2 % (36.0-47.0); HEMOGLOBIN 12.9 g/dl (12.0-15.5); MEAN CORPUSCULAR HGB CONC 32.9 g/dl (32.0-36.5); MEAN CORPUSCULAR VOLUME 88.1 fl (80.0-96.0); PLATELET COUNT, AUTOMATED 175 10^3/uL (150-450); RED BLOOD COUNT 4.45 10^6/uL (4.00-5.40); WHITE BLOOD COUNT 4.7 10^3/uL (4.0-10.0)
[2019-05-23 06:10] LABS: BLOOD UREA NITROGEN 10 MG/DL (7-18); CALCIUM LEVEL 8.7 MG/DL (8.8-10.2); CARBON DIOXIDE LEVEL 29 MEQ/L (21-32); CHLORIDE LEVEL 106 MEQ/L (98-107); CREATININE FOR GFR 0.62 MG/DL (0.55-1.30); GLOMERULAR FILTRATION RATE > 60.0 (>39); GLUCOSE, FASTING 143 MG/DL (70-100); MAGNESIUM LEVEL 2.3 MG/DL (1.8-2.4); POTASSIUM SERUM 3.8 MEQ/L (3.5-5.1); SODIUM LEVEL 141 MEQ/L (136-145)
[2019-05-23 07:59] VITALS: BP 154/74
[2019-05-23 08:00] VITALS: BP_SYST 152; BP_SYST 160; BP_SYST 161; BP_DIAS 68; BP_DIAS 74; BP_DIAS 76
[2019-05-23] MEDS: HEPARIN SOD (PORCINE) 5000 UNITS/ML VIAL SC SCH ×2 (09:57→20:14)
[2019-05-23 11:40] VITALS: BP 159/73
[2019-05-23 16:00] VITALS: BP 141/73
--- NOTE | 2019-05-23 18:50 | IPNPDOC ---
Text Note Date of Service The patient was seen on 05/23/19. NOTE Subjective: Patient is emotional labile, frequently cries. Patient does not have any complaints pain, nausea, vomiting, palpitations, shortness of breath, diarrhea or dysuria. Patient not oriented in place, time. Objective: General: Female with a flat affect HEENT: MARIUM, EOMI CV: S1-S2 Abdomen: Nontender, nondistended Extremities: No cyanosis, no swelling Neuro: No focal deficiency, cranial nerves from 2-12 intact EXAM: US Duplex Bilateral Extracranial Arteries EXAM DATE/TIME: 05/22/2019 8:56 PM CLINICAL HISTORY: 74 years old, female; Syncope and collapse; Additional info: Syncopal episodes TECHNIQUE: Imaging protocol: Real-time Duplex ultrasound scan of the Bilateral carotid and vertebral arteries combining cheung scale, color Doppler and spectral waveform analysis. COMPARISON: 12/07/18 FINDINGS: Right common carotid artery: Unremarkable. No occlusion or stenosis. Waveforms are normal. Right internal carotid artery: Mild atheromatous plaque. No occlusion or stenosis. Waveforms are normal. Right ICA/CCA ratio: 0.9 Right external carotid artery: No stenosis in the origin. Right vertebral artery: Unremarkable. Antegrade flow Left common carotid artery: Unremarkable. No occlusion or stenosis. Waveforms are normal. Left internal carotid artery: Mild atheromatous plaque. No occlusion or stenosis. Waveforms are normal. Left ICA/CCA ratio: 0.7 Left external carotid artery: No stenosis in the origin. Left vertebral artery: Unremarkable. Antegrade flow. IMPRESSION: Mild atherosclerosis with less than 50% stenosis bilaterally. COMMENT: Carotid Stenosis Reference using SRU criteria: Mild: less than 50% stenosis. ICA PSV is less than 125 cm/second and plaque or intimal thickening is visible. Moderate: 50-69% stenosis. ICA PSV is 125 to 230 cm/second and plaque is visible. Severe: 70-94% stenosis. ICA PSV is more than 230 cm/second and visible plaque and lumen narrowing are seen. Near occlusion: 95-99% stenosis. ICA PSV is variable and significant plaque and luminal narrowing are seen. Occluded: 100% stenosis. No flow identified. Electronically signed by: Reva Almonte On 05/22/2019 21:49:30 PM A/P Patient 74 years old female with past medical history hypertension, dementia presented to the hospital after episode of syncope. According to family members she had 2 episodes of syncope for past 24 hours. Patient was verbal unresponsive for 10 minutes according to her . He denied any seizure-like activities. Syncope head CT scan was negative for acute bleeding Orthostatic vital signs was negative, no profound electrolytes abnormalities Telemetry for 24 hours negative for atrial fibrillation, showed normal sinus rhythm with intermittent PVCs Continue to monitor patient on telemetry Echo pending U/S Mild atherosclerosis with less than 50% stenosis bilaterally. PT recommended discharge to home Recommend follow-up with neurologist in the outpatient settings for EEG Hypertension Continue home medications Dementia Continue home meds Depression Appreciate/agree with psychiatrist consult Continue home meds Seroquel 25 mg daily at bedtime DVT prophylaxis VS,Fishbone, I+O VS, Fishbone, I+O Laboratory Tests 05/23/19 05:28 Red Blood Count 4.45, Mean Corpuscular Volume 88.1, Mean Corpuscular Hemoglobin 29.0, Mean Corpuscular Hemoglobin Concent 32.9, Red Cell Distribution Width 13.6, Calcium Level 8.7 L Vital Signs Date Time Temp Pulse Resp B/P (MAP) Pulse Ox O2 Delivery O2 Flow Rate FiO2 05/23/19 16:00 97.3 83 18 141/73 (95) 97 05/22/19 20:15 Room Air I&O- Last 24 Hours up to 6 AM 05/23/19 06:00 Intake Total 200 ml Output Total 600 ml Balance -400 ml DIANA WINSTON DO May 23, 2019 18:50
[2019-05-23 20:00] VITALS: BP 153/73
[2019-05-23] MEDS ORDERED: QUEtiapine FUMARATE 25 MG TAB PO SCH (21:00)
[2019-05-24 04:00] VITALS: BP 152/74
[2019-05-24 06:09] LABS: HEMATOCRIT 41.9 % (36.0-47.0); HEMOGLOBIN 13.8 g/dl (12.0-15.5); MEAN CORPUSCULAR HEMOGLOBIN 29.1 pg (27.0-33.0); MEAN CORPUSCULAR HGB CONC 32.9 g/dl (32.0-36.5); MEAN CORPUSCULAR VOLUME 88.4 fl (80.0-96.0); PLATELET COUNT, AUTOMATED 203 10^3/uL (150-450); RED BLOOD COUNT 4.74 10^6/uL (4.00-5.40); WHITE BLOOD COUNT 6.1 10^3/uL (4.0-10.0)
[2019-05-24] MEDS: SLF 3 ML SYR IV SCH (06:10)
[2019-05-24 06:34] LABS: BLOOD UREA NITROGEN 11 MG/DL (7-18); CALCIUM LEVEL 9.4 MG/DL (8.8-10.2); CARBON DIOXIDE LEVEL 30 MEQ/L (21-32); CHLORIDE LEVEL 107 MEQ/L (98-107); CREATININE FOR GFR 0.71 MG/DL (0.55-1.30); GLOMERULAR FILTRATION RATE > 60.0 (>39); GLUCOSE, FASTING 123 MG/DL (70-100); POTASSIUM SERUM 3.7 MEQ/L (3.5-5.1); SODIUM LEVEL 141 MEQ/L (136-145)
[2019-05-24 08:00] VITALS: BP 139/64
[2019-05-24] MEDS ORDERED: PREVNAR 13 VACCINE SYRINGE (CPT CODE:90670) IM ONE (09:00)
[2019-05-24] MEDS: HEPARIN SOD (PORCINE) 5000 UNITS/ML VIAL SC SCH (09:28)
[2019-05-24 12:00] VITALS: BP 153/73
[2019-05-24] MEDS ORDERED: QUET1TAB7 PO (12:02)
--- NOTE | 2019-05-24 15:25 | MHCR ---
DATE OF CONSULTATION: 05/23/2019 CHIEF COMPLAINT: She has been agitated. SUBJECTIVE: She is 74 years old. She is . She and her have been together for more than 55 years. He is at the bedside, and most of the information and history is obtained from him and from the chart. The patient had just gone to sleep, woke up, and was able to tell me very little, but indicated that she had been fine. She cannot carry on a conversation of any great length of time, secondary to cognitive deficits that she has, has dementia, as well as the fact that she was sleepy. I have been asked to see this patient by the hospitalist, Dr. Contreras, as the patient has dementia and he suggested that she had a "flat affect" earlier today and then had a labile affect and was crying, and they wanted me to see if her medications could be adjusted. She has dementia, unclear from the record as to what type, the possibility if vascular, as well as Alzheimer's type. She is seen by Dr. Childs as an outpatient. She also sees neurology, Dr. Davis, here locally. She came in as she had a syncopal episode and was unresponsive for a couple of minutes and then revived. This has happened before earlier this year in November and apparently has had other occasions as well in the last few months. Has had a couple of falls, per the as well. She stays at home, she has care through a couple of home health aides apparently and the helps to look after her. She was seen by Dr. Gary, psychiatry, earlier this year. Please see her assessment for background information, as well as the examination at that time. She was apparently on Aricept and Namenda early on in the year and this was discontinued by primary care, there were some concerns that syncopal episodes, which she had at that time as well, were more to do with anxiety. The patient's aunt had just at that time. She has had a deterioration in her cognition over the last few months, per the , a bit rapid recently. Sleep has been okay, as has appetite for the most part, until she had the syncopal episode the other day, just prior to coming to the hospital. She has not had any here and etiology has been somewhat uncertain apparently. The says that they were in [place] last winter and when there she was started on CBD in the form of "gummy bears." Says this was in conjunction with her physician there, and her has been giving her the CBD regularly for the last 8 months or so, twice or three times a day, and there are times when he says that she does not use any, but not for more than 24 hours. He says that since she has been on the CBD, has been much calmer overall. Takes it regularly. Says her neurologist is aware here, Dr. Davis, whom she sees once every three months or so and is quite okay with that. She has not received any CBD since she has been in the hospital. She is on quetiapine at 25 mg at night, unclear if it was started here prior to coming in, but it looks more recent. Per the record, outpatient medications included hydrocodone at some point, as well as Benadryl. Her sense of confusion has increased recently apparently, in terms of cognition. says that he has to look after her, but that it has been difficult, and he has been in the process of arranging for more in terms of assistance and aides to attend to her. PAST PSYCHIATRIC HISTORY: Apparently no formal history in the past. No psychotropic medications in the past either. MEDICAL HISTORY: Has dementia. Has a history of hypertension. According to the record, home medications include: - amlodipine (Norvasc) 5 mg daily - amoxicillin - CBD gummies - Benadryl 25 mg daily as needed for allergies - hydrocodone 7.5/325 three times a day as needed for pain SOCIAL HISTORY: Lives at home with her , they have been together for more than 55 years. He looks after her and there are a couple of aides who come in as well. The has been in the process of attempting to get more help. MENTAL STATUS EXAMINATION: She is lying in bed. SHe is neat. There is no agitation. No psychomotor retardation, but she is unable to engage in the interview for any length of time. Had a difficult time findings words, although did say she is doing okay and affect was reactive, appeared calm, and then she went to sleep. I was not able to carry out a further formal examination, but cognition has been difficult, in terms of orientation as well. Judgment and insight are presumably compromised. ASSESSMENT: 1. Neurocognitive disorder, likely severe due to vascular disease versus Alzheimer's (or mixed). She has had considerable cognitive deficits, has had syncopal episodes and the cause is unclear. She was agitated here recently with apparently a labile affect and had needed to be directed. Apparently at one point wanted to leave the hospital during the day, settled down, had been called and he has been asked to spend the night with her. She has been using CBD in the form of gummy bears the last 8 months or so, regularly, two to three times daily, with an occasional gap of a day. This was started apparently in [place] with conjunction of her physician there. Neurology here is aware of this. The says that it has made the biggest difference, in terms of calming her. He has seen major differences. She has not received any CBD while in the hospital. I am unaware as to the use of CBD in the presence of dementia. I wonder if this contributes to recent events. Has not had any CBD since being in the hospital. She sees neurology, Dr. Davis, every few months, per her . RECOMMENDATIONS: 1. Optimize current care. 2. Assess and reassess requirement of her outpatient medications, including the hydrocodone, diphenhydramine, and the CBD (I would avoid the diphenhydramine as that can lead to confusion). Needs round the clock care, supervised, and at the moment it is being provided by a couple of aides and the patient's , it has been challenging on the patient's , he wishes to provide as much care as he can in the home, but this is taking a toll on him as well. I would suggest maximizing the care that is available for her around the clock. Thank you for the consultation. If any questions, please call. The assessment took 45 minutes.
--- NOTE | 2019-05-24 18:34 | ECHO ---
DATE OF PROCEDURE: 05/23/2019 AGE: 74 HEIGHT: 64 inches. GENDER: Female. WEIGHT: 160 pounds. BODY SURFACE AREA: 1.78 meters squared. LOCATION: Inpatient PCU, room 3229. REFERRING PHYSICIAN: Dr. Tracey. INDICATION: Syncope. MEASUREMENTS 2-D MEASUREMENTS: RV - 3.1 cm LV - 3.9 cm Septum 1.2 cm Posterior wall 1.2 cm Aortic root 2.9 cm LA - 3.6 cm LVEF - 75% DOPPLER MEASUREMENTS: AV - 1.2 m/s LVOT - 1.1 m/s LVOT diameter 2.0 cm MV-E 74 A: 109 E/A ratio: 0.7 Early mitral deceleration time 197 ms E-prime 4.5, A prime 7.2 E/A ratio 16.4 PCWP: 20 mmHg PV - 0.8 m/s Pulmonary artery acceleration time 110 ms RVSP 29 mmHg IVC - 1.6 cm COMMENTS: Normal sinus rhythm with first-degree AV block but no intraventricular conduction disturbance. M-mode and two-dimensional echocardiography was performed with pulsed, continuous wave, color flow and tissue Doppler studies. Borderline concentric left ventricular hypertrophy with hyperkinetic wall motion. Left atrial size upper limits of normal with Doppler evidence of an impairment of LV diastolic function and at least mildly elevated at mean left atrial pressure. Normal right heart chamber sizes and motion with Doppler evidence of pulmonary arterial pressure upper limits of normal to borderline increased. Normal IVC size and collapse against an elevated central venous pressure. Mild aortic valvular sclerosis without stenosis but mild - moderate insufficiency. Slight thickening of the mitral annulus but normal leaflet excursion and no posterior systolic buckling and only trace mitral insufficiency. Normal aortic root size. Normal appearing tricuspid valve with very mild insufficiency. No apparent intracardiac mass or pericardial effusion.
--- NOTE | 2019-05-24 21:47 | DS.PDOC ---
Discharge Summary General Date of Admission May 22, 2019 at 17:32 Date of Discharge 05/24/19 Primary Care Physician: SOTERO ROGERS M.D. Attending Physician: DIANA WINSTON DO Discharge Summary PROCEDURES PERFORMED DURING STAY: None. ADMITTING DIAGNOSES: 1. Syncope Hypertension Dementia Depression DISCHARGE DIAGNOSES: 1. Syncope Hypertension Dementia Depression COMPLICATIONS/CHIEF COMPLAINT: Syncope. HISTORY OF PRESENT ILLNESS: 74-year-old female with past medical history of hypertension, dementia presented to the ER after she had a syncopal event. According to the patient's she had 2 events over the last 24 hours. This morning, the patient was gardening with her healthcare aide. She then came inside and was getting a drink of water when she syncopized and was about to fall to the ground. The patient's healthcare aide caught her before she fell. According to the patient's the patient was unresponsive for about 2-3 minutes. However, her blood pressure was stable and she was breathing according to a friend who is an EMT and was present. Upon arrival of EMS, the patient's vital signs are stable as well as her glucose level. The patient's history is limited due to her dementia. She denies any complaints of fevers, chills, chest pain, palpitations, abdominal pain, or any nausea/vomiting/diarrhea. HOSPITAL COURSE: During hospital course . CT scan was done and it was negative for acute bleeding. Orthostatic vital signs was negative on admission. Telemetry for 24 hours was negative for atrial fibrillation, and showed normal sinus rhythm. Doppler carotid ultrasound showed Mild atherosclerosis with less than 50% stenosis bilaterally. The result of echo please see below. Patient will need EEG to rule out seizures in the outpatient settings. Patient received treatment with IV fluid. DISCHARGE MEDICATIONS: Please see below. ALLERGIES: Please see below. PHYSICAL EXAMINATION ON DISCHARGE: VITAL SIGNS: Please see below. General Exam: Positive: Alert, Cooperative, No Acute Distress Eye Exam: Positive: PERRLA, Conjunctiva & lids normal, EOMI ENT Exam: Positive: Atraumatic, Mucous membr. moist/pink Neck Exam: Negative: JVD Chest Exam: Positive: Clear to auscultation, Normal air movement Heart Exam: Positive: Rate Normal, Normal S1, Normal S2 Abdomen Exam: Positive: Soft; Negative: Tenderness Extremity Exam: Negative: Tenderness, Swelling Neuro Exam: Positive: Normal Speech, Strength at 5/5 X4 ext, Normal Tone, Sensation Intact, Cranial Nerves 3-12 NL LABORATORY DATA: Please see below. IMAGING: Echocardiogram INDICATION: Syncope. MEASUREMENTS 2-D MEASUREMENTS: RV - 3.1 cm LV - 3.9 cm Septum 1.2 cm Posterior wall 1.2 cm Aortic root 2.9 cm LA - 3.6 cm LVEF - 75% DOPPLER MEASUREMENTS: AV - 1.2 m/s LVOT - 1.1 m/s LVOT diameter 2.0 cm MV-E 74 A: 109 E/A ratio: 0.7 Early mitral deceleration time 197 ms E-prime 4.5, A prime 7.2 E/A ratio 16.4 PCWP: 20 mmHg PV - 0.8 m/s Pulmonary artery acceleration time 110 ms RVSP 29 mmHg IVC - 1.6 cm COMMENTS: Normal sinus rhythm with first-degree AV block but no intraventricular conduction disturbance. M-mode and two-dimensional echocardiography was performed with pulsed, continuous wave, color flow and tissue Doppler studies. Borderline concentric left ventricular hypertrophy with hyperkinetic wall motion. Left atrial size upper limits of normal with Doppler evidence of an impairment of LV diastolic function and at least mildly elevated at mean left atrial pressure. Normal right heart chamber sizes and motion with Doppler evidence of pulmonary arterial pressure upper limits of normal to borderline increased. Normal IVC size and collapse against an elevated central venous pressure. Mild aortic valvular sclerosis without stenosis but mild - moderate insufficiency. Slight thickening of the mitral annulus but normal leaflet excursion and no posterior systolic buckling and only trace mitral insufficiency. Normal aortic root size. Normal appearing tricuspid valve with very mild insufficiency. PROGNOSIS: Favorable ACTIVITY: As tolerated DIET: Regular DISCHARGE PLAN: Follow-up with neurologist, EEG in the outpatient settings DISPOSITION: 01 Home, Self-Care. DISCHARGE INSTRUCTIONS: 1. EEG in the outpatient settings ITEMS TO FOLLOWUP ON ON OUTPATIENT: 1. Follow-up with PCP in 3-4 days DISCHARGE CONDITION: Stable TIME SPENT ON DISCHARGE: Greater than 20 minutes. Vital Signs/I&Os Vital Signs Date Time Temp Pulse Resp B/P (MAP) Pulse Ox O2 Delivery O2 Flow Rate FiO2 05/24/19 12:00 97.1 87 20 153/73 (99) 100 05/22/19 20:15 Room Air I&O- Last 24 Hours up to 6 AM 05/24/19 06:00 Intake Total 360 ml Output Total 1150 ml Balance -790 ml Laboratory Data Labs 24H Laboratory Tests 2 05/24/19 05:49: Nucleated Red Blood Cells % (auto) 0.0, Anion Gap 4L, Glomerular Filtration Rate > 60.0, Blood Urea Nitrogen 11, Creatinine 0.71, Sodium Level 141, Potassium Level 3.7, Chloride Level 107, Carbon Dioxide Level 30, Calcium Level 9.4 CBC/BMP Laboratory Tests 05/24/19 05:49 Red Blood Count 4.74, Mean Corpuscular Volume 88.4, Mean Corpuscular Hemoglobin 29.1, Mean Corpuscular Hemoglobin Concent 32.9, Red Cell Distribution Width 13.8, Calcium Level 9.4 Discharge Medications Scheduled Amlodipine Besylate (Norvasc) 5 Mg Tablet, 5 MG PO DAILY, (Reported) Quetiapine Fumarate (Quetiapine Fumarate) 25 Mg Tablet, 25 MG PO QHS [Cbd Gummies] , 1 CHEW PO Q6H, (Reported) Scheduled PRN Carboxymethylcellulos/Glycerin (Refresh Optive Eye Drops) 15 Ml Drops, 1 ARJUN OU QID PRN for DRY EYES, (Reported) Diphenhydramine HCl (Benadryl) 25 Mg Capsule, 25 MG PO DAILY PRN for ALLERGIES, (Reported) Hydrocodone/Acetaminophen (Hydrocodone-Acetamin 7.5-325) 1 Each Tablet, 7.5 MG PO TID PRN for PAIN, (Reported) Allergies Coded Allergies: No Known Allergies (Verified , 04/10/19) DIANA WINSTON DO May 24, 2019 21:47
== END 2019-05-24 13:00 | disposition home or self-care (01) | DRG 312 ==
LOC: M ED 15:12 → M ED INP 17:32 → M PCU 21:23
PROVIDERS: ADMIT Internal Medicine; ATTEND Internal Medicine
DX: R55 Syncope and collapse (principal); I10 Essential (primary) hypertension; F03.90 Unspecified dementia, unspecified severity, without behavioral disturbance, psychotic disturbance, mood disturbance, and anxiety; F32.9 Major depressive disorder, single episode, unspecified; Z79.899 Other long term (current) drug therapy

== ENCOUNTER 2019-05-28 17:56 | Emergency (ER) | payer MEDICARE, MEDICAID ==
[~2019-05-28 17:56] MED LIST changes: +AMOX500T PO; +BENA25CA4 PO; +HYDR-4514 PO; +NORV5TAB PO; +OPTI0.5D5 OU; +QUET1TAB7 PO; -SERT25TA21 PO; +SERT25TA88 PO
--- NOTE | 2019-05-28 18:33 | REPVR ---
EXAM: CT Head Without Contrast EXAM DATE/TIME: 05/28/2019 6:25 PM CLINICAL HISTORY: 74 years old, female; Syncope and collapse TECHNIQUE: Imaging protocol: Computed tomography of the head without contrast. Radiation optimization: All CT scans at this facility use at least one of these dose optimization techniques: automated exposure control; mA and/or kV adjustment per patient size (includes targeted exams where dose is matched to clinical indication); or iterative reconstruction. Other technique: STROKE PROTOCOL was implemented. COMPARISON: CT Head without contrast 05/22/2019 3:36 PM FINDINGS: Brain: No intracranial mass, focal mass effect or midline shift. Small new intra-axial hemorrhage, right paramedian parietal vertex, 14 mm. Mild decreased attenuation in periventricular/centrum semiovale white matter. No focal effacement of cortical sulci to indicate acute cortical infarct. Remote right parietal small vessel infarct with volume loss, unchanged Ventricles: Prominent ventricles and CSF spaces suggest parenchymal volume loss. Bones/joints: No calvarial fracture or destructive process. Sinuses: Visualized paranasal sinuses are unremarkable. Mastoid air cells: Mastoid air cells are normally aerated. Orbits: Visualized globes and orbits are unremarkable. Soft tissues: No focal extracranial soft tissue swelling. IMPRESSION: 1. Small 14 mm acute intra-axial hemorrhage, posterior left parietal vertex, not present on CT from 05/22/2019. Minimal adjacent mass effect.. 2. Atrophy and chronic microangiopathic change in supratentorial white matter. ASSESSMENT: ASPECTS ([place] Stroke Program Early CT Score) is 10 Electronically signed by: Del Butler On 05/28/2019 18:32:57 PM
[2019-05-28 19:09] LABS: BASO % 0.7 % (0.0-1.0); EOS % 0.2 % (0.0-3.0); HEMATOCRIT 39.1 % (36.0-47.0); LYMPH # 1.6 10^3/uL (1.5-5.0); LYMPH % 29.5 % (24.0-44.0); MEAN CORPUSCULAR HEMOGLOBIN 29.7 pg (27.0-33.0); MEAN CORPUSCULAR HGB CONC 33.2 g/dl (32.0-36.5); MEAN CORPUSCULAR VOLUME 89.3 fl (80.0-96.0); MONO # 0.3 10^3/uL (0.0-0.8); MONO % 5.9 % (0.0-5.0); NEUTROPHILS # 3.4 10^3/uL (1.5-8.5); PLATELET COUNT, AUTOMATED 192 10^3/uL (150-450); RED BLOOD COUNT 4.38 10^6/uL (4.00-5.40); WHITE BLOOD COUNT 5.4 10^3/uL (4.0-10.0)
--- NOTE | 2019-05-28 19:10 | ECGEPIP ---
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
[2019-05-28] MEDS: LABETALOL HCL 100 MG/20 ML VIAL IV PRN ×3 (19:27→19:34)
[2019-05-28 19:33] VITALS: BP 174/108
[2019-05-28 19:41] LABS: BLOOD UREA NITROGEN 13 MG/DL (7-18); CALCIUM LEVEL 8.6 MG/DL (8.8-10.2); CARBON DIOXIDE LEVEL 25 MEQ/L (21-32); CHLORIDE LEVEL 109 MEQ/L (98-107); CK-MB VALUE MASS 1.2 NG/ML (<3.6); CPK CREATINE PHOSPHOKINASE 77 U/L (26-192); CREATININE FOR GFR 0.62 MG/DL (0.55-1.30); ETHYL ALCOHOL (ETHANOL) < 0.003 % (0.000-0.010); FREE T4 0.81 NG/DL (0.76-1.46); GLOMERULAR FILTRATION RATE > 60.0 (>39); GLUCOSE, FASTING 122 MG/DL (70-100); MB/CK RELATIVE INDEX 1.56 (< OR =4); POTASSIUM SERUM 4.2 MEQ/L (3.5-5.1); SODIUM LEVEL 141 MEQ/L (136-145); TROPONIN I < 0.02 NG/ML (< 0.10)
[2019-05-28] MEDS ORDERED: NITROGLYCERIN 2% OINT 1 GM *U/D* PKT As Ordered ONE (19:43)
[2019-05-28] MEDS ORDERED: NITROGLYCERIN 2% OINT 1 GM *U/D* PKT TOP ONE (19:45)
[2019-05-28 19:47] VITALS: BP 192/88
== END 2019-05-28 19:49 | disposition short-term general hospital (02) ==
LOC: M ED 17:56
DX: I62.9 Nontraumatic intracranial hemorrhage, unspecified (principal); R56.9 Unspecified convulsions; I45.19 Other right bundle-branch block; I10 Essential (primary) hypertension; F03.90 Unspecified dementia, unspecified severity, without behavioral disturbance, psychotic disturbance, mood disturbance, and anxiety; Z79.899 Other long term (current) drug therapy
CPT/HCPCS: 70450; 80048; 81001; 82550; 82553; 83605; 84439; 84443; 84484; 85025; 93005; 93041; 94760; 96374; 99285; G0480

== ENCOUNTER 2019-09-08 17:42 | Emergency (ER) | payer MEDICARE, MEDICAID ==
[~2019-09-08 17:42] MED LIST changes: +SERT25TA21 PO; -SERT25TA88 PO
[2019-09-08] MEDS ORDERED: LIPI10TA PO (17:54)
[2019-09-08] MEDS ORDERED: LISI-542 PO (17:54)
[2019-09-08] MEDS ORDERED: LEVO50TA5 PO (17:54)
[2019-09-08] MEDS ORDERED: ABIL1TAB11 PO (17:54)
[2019-09-08] MEDS ORDERED: CELE20TA PO (17:54)
[2019-09-08] MEDS ORDERED: BUSP5TA PO (17:54)
--- NOTE | 2019-09-08 20:26 | REPVR ---
PROCEDURE INFORMATION: Exam: CT Head Without Contrast Exam date and time: 09/08/2019 7:55 PM Age: 74 years old Clinical history: Altered mental status/memory loss; Confusion or disorientation TECHNIQUE: Imaging protocol: Computed tomography of the head without contrast. Radiation optimization: All CT scans at this facility use at least one of these dose optimization techniques: automated exposure control; mA and/or kV adjustment per patient size (includes targeted exams where dose is matched to clinical indication); or iterative reconstruction. COMPARISON: CT Head without contrast 05/28/2019 6:24 PM FINDINGS: Brain: There is ezxu-pl-rgcqwtye parenchymal volume loss. White matter changes are demonstrated in the subcortical, centrum semiovale and periventricular white matter consistent with age related small vessel white matter angiopathic gliosis. Previously demonstrated focus of hemorrhage in the posterior parietal lobe has resolved. Ventricles: The degree of ventricular dilatation is normal for age and/or degree of atrophy present. Bones/joints: Unremarkable. No acute fracture. Sinuses: Visualized sinuses are unremarkable. No fluid levels. Mastoid air cells: Visualized mastoid air cells are well aerated. Soft tissues: Unremarkable. IMPRESSION: 1. There is kslm-oe-ckvrcnta parenchymal volume loss. White matter changes are demonstrated in the subcortical, centrum semiovale and periventricular white matter consistent with age related small vessel white matter angiopathic gliosis. 2. The degree of ventricular dilatation is normal for age and/or degree of atrophy present. 3. No acute findings. Electronically signed by: Geoffrey Limon On 09/08/2019 20:25:31 PM
[2019-09-08 21:00] LABS: BASO % 0.6 % (0.0-1.0); EOS % 0.4 % (0.0-3.0); HEMATOCRIT 35.7 % (36.0-47.0); HEMOGLOBIN 11.6 g/dl (12.0-15.5); LYMPH # 1.8 10^3/uL (1.5-5.0); LYMPH % 34.3 % (24.0-44.0); MEAN CORPUSCULAR HEMOGLOBIN 29.7 pg (27.0-33.0); MEAN CORPUSCULAR HGB CONC 32.5 g/dl (32.0-36.5); MEAN CORPUSCULAR VOLUME 91.3 fl (80.0-96.0); MONO # 0.4 10^3/uL (0.0-0.8); MONO % 6.8 % (0.0-5.0); NEUTROPHILS % 57.5 % (36.0-66.0); PLATELET COUNT, AUTOMATED 190 10^3/uL (150-450); RED BLOOD COUNT 3.91 10^6/uL (4.00-5.40); WHITE BLOOD COUNT 5.1 10^3/uL (4.0-10.0)
[2019-09-08 21:25] LABS: ALBUMIN 3.3 GM/DL (3.2-5.2); ALT/SGPT 22 U/L (12-78); BILIRUBIN,TOTAL 0.2 MG/DL (0.2-1.0); BLOOD UREA NITROGEN 14 MG/DL (7-18); CALCIUM LEVEL 8.5 MG/DL (8.8-10.2); CARBON DIOXIDE LEVEL 30 MEQ/L (21-32); CHLORIDE LEVEL 106 MEQ/L (98-107); GLOMERULAR FILTRATION RATE > 60.0 (>39); GLUCOSE, FASTING 146 MG/DL (70-100); POTASSIUM SERUM 3.9 MEQ/L (3.5-5.1); SODIUM LEVEL 141 MEQ/L (136-145); TOTAL PROTEIN 6.2 GM/DL (6.4-8.2)
[2019-09-09 01:05] VITALS: BP 146/68
== END 2019-09-09 01:12 | disposition home or self-care (01) ==
LOC: M ED 17:42
DX: F03.90 Unspecified dementia, unspecified severity, without behavioral disturbance, psychotic disturbance, mood disturbance, and anxiety (principal); I10 Essential (primary) hypertension; Z79.899 Other long term (current) drug therapy

== ENCOUNTER → 2019-12-01 | Outpatient (CLI) | payer MEDICAID, MEDICARE ==
[~2019-12-01] MED LIST changes: +ABIL1TAB11 PO; +BUSP5TA PO; +CELE20TA PO; +LEVO50TA5 PO; +LIPI10TA PO; +LISI-542 PO
[2019-12-01 08:22] LABS: BASO % 0.8 % (0.0-1.0); EOS % 0.6 % (0.0-3.0); HEMATOCRIT 38.4 % (36.0-47.0); HEMOGLOBIN 12.6 g/dl (12.0-15.5); LYMPH # 1.4 10^3/uL (1.5-5.0); LYMPH % 26.6 % (24.0-44.0); MEAN CORPUSCULAR HEMOGLOBIN 28.8 pg (27.0-33.0); MEAN CORPUSCULAR HGB CONC 32.8 g/dl (32.0-36.5); MEAN CORPUSCULAR VOLUME 87.7 fl (80.0-96.0); MONO # 0.3 10^3/uL (0.0-0.8); MONO % 6.5 % (0.0-5.0); NEUTROPHILS # 3.3 10^3/uL (1.5-8.5); NEUTROPHILS % 65.3 % (36.0-66.0); PLATELET COUNT, AUTOMATED 239 10^3/uL (150-450); RED BLOOD COUNT 4.38 10^6/uL (4.00-5.40); WHITE BLOOD COUNT 5.1 10^3/uL (4.0-10.0)
[2019-12-01 08:39] LABS: HEMOGLOBIN A1c 7.1 %
[2019-12-01 08:51] LABS: ALBUMIN 3.8 GM/DL (3.2-5.2); ALT/SGPT 22 U/L (12-78); BILIRUBIN,TOTAL 0.4 MG/DL (0.2-1.0); BLOOD UREA NITROGEN 14 MG/DL (7-18); CARBON DIOXIDE LEVEL 25 MEQ/L (21-32); CHLORIDE LEVEL 107 MEQ/L (98-107); CHOLESTEROL LEVEL 181 MG/DL (<200); CHOLESTEROL RISK RATIO 2.742 (<5); CREATININE FOR GFR 0.67 MG/DL (0.55-1.30); FREE T4 1.14 NG/DL (0.76-1.46); GLOMERULAR FILTRATION RATE > 60.0 (>39); GLUCOSE, FASTING 128 MG/DL (70-100); HDL CHOLESTEROL 66 MG/DL (>40); LDL CHOLESTEROL 85 MG/DL (<100); NON-HDL-C 115 MG/DL; NT-PRO BNP 133 PG/ML (<125); POTASSIUM SERUM 4.3 MEQ/L (3.5-5.1); SODIUM LEVEL 138 MEQ/L (136-145); THYROID STIMULATING HORMONE 0.945 uIU/ML (0.358-3.740); TOTAL PROTEIN 7.1 GM/DL (6.4-8.2); TRIGLYCERIDES LEVEL 151 MG/DL (<150)
--- NOTE | 2019-12-01 09:56 | REP ---
Left lower extremity Duplex Doppler venous ultrasound: Real time compression and duplex Doppler interrogation of the left lower extremity deep venous system is performed. The left common femoral, superficial femoral and popliteal veins are fully compressible with transducer pressure and demonstrate normal spontaneous and phasic flow, without evidence of deep venous thrombosis. Impression: No evidence of deep venous thrombosis of the left lower extremity femoral popliteal venous system. Electronically Signed by Vick Hernandez MD 12/01/2019 09:47 A
== END ==
LOC: M RAD 07:30
PROVIDERS: ATTEND Family Medicine
DX: G30.9 Alzheimer's disease, unspecified (principal); E78.5 Hyperlipidemia, unspecified; I10 Essential (primary) hypertension; R22.42 Localized swelling, mass and lump, left lower limb; Z79.899 Other long term (current) drug therapy

== ENCOUNTER → 2019-12-07 | Outpatient (CLI) | payer MEDICARE ==
[~2019-12-07] MED LIST changes: +ISOVUE-370 76% 100ML VIAL (Q9967) As Ordered ONE
--- NOTE | 2019-12-07 15:57 | REP ---
CT of the chest with IV contrast: Comparisons are 02/13/2014 and 01/13/2011 for cough: The there are no infiltrates. There are no pleural effusions. There are no masses. There is a stable 4 mm pleural-based nodule in the superior segment of the right lower lobe on image 39, unchanged from both prior studies. There are no other nodules. There is no mediastinal or hilar lymph node enlargement. There is no axillary lymph node enlargement. The pulmonary arteries are adequately opacified. There are no emboli in the pulmonary trunk or central pulmonary arteries. There are no emboli in the pulmonary lobe or segment branches. The thoracic aorta is unremarkable. The cardiac size is upper normal. There is no pericardial effusion. Upper abdomen: There is no adrenal mass. The visualized hepatic parenchyma, pancreas and spleen are unremarkable. There are surgical clips in the gallbladder fossa. The adrenals and renal upper poles are unremarkable. Impression: There are no infiltrates or pleural effusions. There are no pulmonary emboli. There are no masses. There is no adenopathy. There is a stable 4 mm right lower lobe lung nodule, likely a noncalcified granuloma. Otherwise, negative CT study of the chest. Electronically Signed by Vick Carlson MD 12/07/2019 03:49 P
== END ==
LOC: M RAD 14:18
PROVIDERS: ATTEND Family Medicine
DX: R91.1 Solitary pulmonary nodule (principal); R06.02 Shortness of breath
CPT/HCPCS: 71275; Q9967

== ENCOUNTER → 2020-09-08 | Outpatient (CLI) | payer MEDICARE ==
[~2020-09-08] MED LIST changes: +AMLO1TAB24 PO; -AMLO5TAB6 PO; -ISOVUE-370 76% 100ML VIAL (Q9967) As Ordered ONE
== END ==
LOC: M LABSMTC 10:05
PROVIDERS: ATTEND Anesthesiology
DX: Z11.59 Encounter for screening for other viral diseases (principal)

== ENCOUNTER → 2020-11-03 | Outpatient (CLI) | payer MEDICARE ==
[~2020-11-03] MED LIST changes: +FURO20TA2 PO; -LISI-542 PO; +LISI-898 PO; +MELA10TA6 PO; -QUET1TAB7 PO; +QUET25TA3 PO
== END ==
LOC: M LABSMTC 08:16
PROVIDERS: ATTEND Anesthesiology
DX: Z01.812 Encounter for preprocedural laboratory examination (principal); Z20.822 Contact with and (suspected) exposure to COVID-19

== ENCOUNTER 2020-11-08 08:27 | Day surgery (SDC) | payer MEDICARE ==
[~2020-11-08] VITALS: Ht 170.2 cm; Wt 79.8 kg
[~2020-11-08 08:27] MED LIST changes: +LR 1,000 ML IV ONE
[2020-11-08] MEDS ORDERED: ACETAMINOPHEN 1000MG 100ML IV BTL (OFIRMEV) (J0131 PER 10MG) As Ordered ONE (10:21)
[2020-11-08] MEDS ORDERED: LIDOCAINE 2% 100MG/5ML SDV (FOR ANES.) As Ordered ONE (10:21)
[2020-11-08] MEDS ORDERED: LACRILUBE (AKWA TEARS) OPHTH OINT 3.5 GM As Ordered ONE (10:21)
[2020-11-08] MEDS ORDERED: ROCURONIUM BROMIDE 50 MG/5 ML VIAL As Ordered ONE (10:21)
[2020-11-08] MEDS ORDERED: propofoL 200 MG/20 ML VIAL As Ordered ONE (10:21)
[2020-11-08] MEDS ORDERED: SUGAMMADEX SODIUM 500 MG/5 ML VIAL (BRIDION) As Ordered ONE (10:21)
[2020-11-08] MEDS ORDERED: ONDANSETRON 4MG/2ML VIAL As Ordered ONE (10:22)
[2020-11-08] MEDS ORDERED: fentaNYL 100 MCG/2 ML INJECTION (J3010) As Ordered ONE (10:22)
[2020-11-08] MEDS ORDERED: MIDAZOLAM INJ 2MG/2ML VIAL (J2250 PER 1MG) As Ordered ONE (10:22)
[2020-11-08] MEDS ORDERED: dexameTHASONE 4 MG/ML 1ML VIAL (J1100 PER 1MG) As Ordered ONE (10:22)
[2020-11-08] MEDS ORDERED: LIDOCAINE W/EPINEPHRINE 1% 20ML VIAL As Ordered ONE (10:30)
[2020-11-08] MEDS ORDERED: OXYMETAZOLINE 0.05% NASAL SPRAY (AFRIN) As Ordered ONE (10:31)
[2020-11-08] MEDS ORDERED: oxyCODONE 5MG TAB PO PRN (12:30)
[2020-11-08] MEDS ORDERED: HYDROMORPHONE HCL 0.5 MG/ 0.5 ML SYRINGE (J1170 PER 1) IV PRN (12:30)
[2020-11-08] MEDS ORDERED: LR 1,000 ML IV SCH ×2 (12:30)
[2020-11-08] MEDS ORDERED: ONDANSETRON 4MG/2ML VIAL IV PRN (12:30)
[2020-11-08] MEDS ORDERED: fentaNYL 100 MCG/2 ML INJECTION (J3010) IV PRN (12:30)
[2020-11-08 12:41] VITALS: BP 136/78
--- NOTE | 2020-11-09 12:17 | RO ---
OPERATIVE NOTE DATE OF OPERATION: 11/08/2020 PREOPERATIVE DIAGNOSIS: Non-restorable teeth. POSTOPERATIVE DIAGNOSIS: Non-restorable teeth. PROCEDURE PERFORMED: Extraction of teeth #5, 13, 14, 15, 28, 29, 31. SURGEON: Juan Higuera DMD QUARANTINE OFFICER: None ESTIMATED BLOOD LOSS: 5 mL COMPLICATIONS: None. ANESTHESIA: General. SPECIMENS: Teeth. DESCRIPTION OF PROCEDURE Extraction of teeth #5,13,14,15,28,29,31 performed. 3-0 gut placed. The rest of the dictation will be completed on [employer]
== END 2020-11-08 12:44 | disposition home or self-care (01) ==
LOC: M SDC 08:27
PROVIDERS: ATTEND Dentist Oral and Maxillofacial Surgery
DX: K02.9 Dental caries, unspecified (principal); I10 Essential (primary) hypertension; G31.9 Degenerative disease of nervous system, unspecified; F02.80 Dementia in other diseases classified elsewhere, unspecified severity, without behavioral disturbance, psychotic disturbance, mood disturbance, and anxiety; I49.9 Cardiac arrhythmia, unspecified; E78.00 Pure hypercholesterolemia, unspecified; E03.9 Hypothyroidism, unspecified; F41.9 Anxiety disorder, unspecified; R73.03 Prediabetes; M12.9 Arthropathy, unspecified; Z79.899 Other long term (current) drug therapy; Z86.2 Personal history of diseases of the blood and blood-forming organs and certain disorders involving the immune mechanism; Z96.1 Presence of intraocular lens; Z98.42 Cataract extraction status, left eye
CPT/HCPCS: 88300; D7210; D9223; J0131; J1100; J2250; J2405; J3010

== ENCOUNTER 2021-08-01 13:53 | Emergency (ER) | payer MEDICARE ==
[~2021-08-01] VITALS: Ht 162.6 cm; Wt 73.0 kg
[~2021-08-01 13:53] MED LIST changes: -LR 1,000 ML IV ONE; +QUET1TAB17 PO; -QUET25TA3 PO
[2021-08-01] MEDS ORDERED: NS 500 ML IV ONE ×2 (14:20→18:40)
[2021-08-01] MEDS ORDERED: ISOVUE-370 76% 100ML VIAL As Ordered ONE (14:46)
--- NOTE | 2021-08-01 15:32 | REP ---
INDICATION: severe abdominal pain. COMPARISON: CT 01/19/2013 at [facility] TECHNIQUE: Bolus 100 mL Isovue 370 scanning through the abdomen and pelvis with coronal and sagittal reconstructions provided FINDINGS: CT abdomen: Small right effusion noted and bibasilar atelectatic changes right greater than left. Heart is mildly enlarged. There is left atrial and ventricular enlargement. No pericardial thickening or effusion noted. No hiatal hernia. Stomach with some retained food. The liver shows a stable hypodense focus in the posterior right lobe on image 21, 12 mm and on image 24 10 mm, unchanged cyst with benign finding most likely small cyst clips from prior cholecystectomy are noted no perihepatic ascites. Spleen was unremarkable. Adrenal glands are normal. Gallbladder without mass, stone or adjacent inflammatory change. Renal glands are normal. The left kidney shows no mass or stone within the collecting system. There is an extrarenal pelvis. However the ureter shows normal course to the bladder and is without dilatation or stone. The right kidney also has an extrarenal pelvis and no stone. There is some mild right hydroureter evident but no stone seen. Likewise the bladder is without wall thickening mass or stone. Bladder does have a few small air bubbles superiorly that may be related to previous bladder catheterization. There is no catheter in the bladder now. Small bowel loops are fluid-filled but not dilated. Abdominal portion of the colon shows stool and gas without inflammatory change. Lung window review of all CT slices abdomen pelvis shows no perforation or free. Bone windows show mild degenerative changes in the spine and the lower ribs and sternum are unremarkable. CT pelvis some sacroiliitis inferiorly on the right greater than left with sacrum otherwise unremarkable iliac wings intact hips show degenerative changes. No dilated distal ureter or ureteral stone. No pelvic mass. Uterus absent the vaginal cuff intact small bowel loops in the pelvis were unremarkable. There are no inflammatory changes about the cecum. By history the appendix is absent. No ventral or inguinal hernia. There is diastasis of the rectus muscles without blas bowel herniation IMPRESSION: 1. Extrarenal pelves bilaterally with no renal or ureteral stone on either side there is mild hydroureter on the right without a visible stone. No bladder calculus is seen. Could the patient have recently passed a stone on the right side? 2. Small right effusion and bibasilar patchy atelectatic changes right greater than left. 3. Cardiomegaly with left atrial and ventricular enlargement. 4. Calcifications of the aorta without aneurysm or dissection. 5. Small bowel loops and colon without acute finding. Appendix absent. 6. Liver with a few small hypodense foci consistent with the cysts and unchanged for 8 years. No acute liver finding. Clips from prior cholecystectomy noted. 7. Adrenal glands, pancreas and stomach unremarkable. No colitis, diverticulitis, stricture or mass. 8. Bladder well filled and has a couple of tiny air bubbles. These could be from prior urinary catheterization abut a gas-forming organism from UTI could also give this appearance. There is no evidence to suggest colovesical or enterovesical fistula. <Electronically signed by Jorge Rae > 08/01/21 [id number]
[2021-08-01 15:49] LABS: BASO % 0.3 % (0.0-1.0); EOS % 0.4 % (0.0-3.0); HEMATOCRIT 34.3 % (36.0-47.0); HEMOGLOBIN 11.1 g/dl (12.0-15.5); MEAN CORPUSCULAR HEMOGLOBIN 29.4 pg (27.0-33.0); MEAN CORPUSCULAR HGB CONC 32.4 g/dl (32.0-36.5); MEAN CORPUSCULAR VOLUME 90.7 fl (80.0-96.0); MONO # 0.8 10^3/uL (0.0-0.8); MONO % 9.1 % (2.0-8.0); NEUTROPHILS # 6.1 10^3/uL (1.5-8.5); NEUTROPHILS % 67.8 % (36.0-66.0); PLATELET COUNT, AUTOMATED 184 10^3/uL (150-450); RED BLOOD COUNT 3.78 10^6/uL (4.00-5.40)
[2021-08-01 16:26] LABS: ALBUMIN 2.7 GM/DL (3.2-5.2); ALT/SGPT 17 U/L (12-78); BILIRUBIN,DIRECT < 0.1 MG/DL (0.0-0.2); BILIRUBIN,TOTAL 0.3 MG/DL (0.2-1.0); CK-MB VALUE MASS < 1.0 NG/ML (<3.6); CPK CREATINE PHOSPHOKINASE 50 U/L (26-192); LIPASE 74 U/L (73-393); TOTAL PROTEIN 5.9 GM/DL (6.4-8.2); TROPONIN I < 0.02 NG/ML (< 0.10)
[2021-08-01] MEDS ORDERED: cefTRIAXone SOD 1 GM in D5W MINI-BAG PLUS 50 ML IV ONE (18:15)
[2021-08-01] MEDS ORDERED: CEFD1CAP8 PO (19:58)
--- NOTE | 2021-08-01 20:53 | ECGEPIP ---
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
[2021-08-01 21:14] VITALS: BP 142/74
--- NOTE | 2021-08-02 06:39 | ED PDOC ---
Post-Departure Follow-Up ct abd/p faxed to dr mullins for fu Lindsay Crockett MD Aug 02, 2021 06:39
== END 2021-08-01 21:17 | disposition home or self-care (01) ==
LOC: M ED 13:53
DX: N39.0 Urinary tract infection, site not specified (principal); I44.0 Atrioventricular block, first degree; I10 Essential (primary) hypertension; E78.5 Hyperlipidemia, unspecified; E03.9 Hypothyroidism, unspecified; F03.90 Unspecified dementia, unspecified severity, without behavioral disturbance, psychotic disturbance, mood disturbance, and anxiety; K21.9 Gastro-esophageal reflux disease without esophagitis; Z87.19 Personal history of other diseases of the digestive system; Z79.899 Other long term (current) drug therapy; Z79.890 Hormone replacement therapy
CPT/HCPCS: 51701; 74177; 80047; 80076; 81001; 82550; 82553; 83605; 83690; 84484; 85025; 87088; 87186; 93005; 93041; 94760; 96361; 96365; 96366; 99285; J0696; Q9967

== ENCOUNTER 2021-08-07 06:45 | Inpatient (IN) | payer MEDICARE ==
[~2021-08-07] VITALS: Ht 167.6 cm; Wt 77.4 kg
[~2021-08-07 06:45] MED LIST changes: +CEFD1CAP8 PO
--- OUTSIDE RECORDS SUMMARY | 2021-08-07 06:51 | CCD ---
Continuity of Care Document (CCD) Created on: 07/14/2021 Marlene Morris External Reference #: [id number] : 1945 Sex: Female Author Author Marlene SOUTH M.D. Organization Unknown Address [address] [place] [id number] Phone [phone] Care Team Providers Care Mushroom Press Operator Name Role Phone Pablito South M.D. AUTM [phone] [facility]ly [facility] AUTM [phone] [facility] AUTM [phone] Problems Active Problems Provider Date Peripheral vascular disease Kathleen Mendes DPM-pc Onset: Dystrophia unguium E[place] FreyM-pc Onset: 07/21/2019 Onychomycosis Eveline Frey Onset: 07/21/2019 Hammer toe Eveline Frey Onset: 07/21/2019 Pain in limb Eveline Frey Onset: 07/21/2019 [place] of toe EAGLE FreyM-pc Onset: 07/21/2019 Alzheimer's disease Pablito South MD Onset: 11/29/2019 Recurrent major depressive episodes Pablito South MD Onse t: 11/29/2019 Hyperlipidemia Pablito South MD Onset: 11/29/2019 Essential hypertension Pablito South MD Onset: 11/29/2019 Localized superficial swelling of skin Kathleen Mendes DPM-p c Onset: 01/15/2020 Peripheral angiopathy due to diabetes mellitus E[place] EasonM-pc Onset: 01/15/2020 Pressure ulcer of other site, stage 1 HILTON Freypc Onset: 07/25/2020 Weight decreased Pablito South MD Onset: 04/09/2021 Insomnia Pablito South MD Onset: 04/09/2021 Social History Type Date Description Comments Sex Unknown Tobacco Use Start: Unknown Never Smoked Cigarettes Tobacco Use Start: Unknown Never Smoked Cigars Tobacco Use Start: Unknown Never Smoked A Pipe Smoking Status Reviewed: 09/16/20 Never Smoked A Pipe Tobacco Use Start: Unknown Never Used Smokeless Tobacco ETOH Use Denies alcohol use Tobacco Use Start: Unknown Patient has never smoked Allergies and adverse reactions Active Allergies Criticality Reaction | Severity Comments Date NKDA Unable to assess criticality 11/29/2019 NKFA Unable to assess criticality 11/29/2019 NKEA Unable to assess criticality 11/29/2019 Medications Active Medications SIG Qnty Indications Ordering Provide r Date Furosemide 20mg Tablets Take 1 And 1/2 Tablets By Mouth @8Am 90tabs Pablito South MD 2020 BD S[employer] Medical Gloves Large Misc R32 Pablito South MD 11/11/2020 Hospital Bed dx g30.9, m19.9 Kaylie Rincon 08/12/2020 Imodium A-D 2mg Capsules 1 tab by mouth with each loos stool. do not take more then 6 tabs over 24 hrs. 30caps Pablito South MD 03/25/2020 Transport Chair Misc use daily 1units M19.90 Pablito South MD 03/20/2020 G30.9 R06.02 Toilet Safety Frame Misc use daily 1units G30.9 Pablito South MD 03/20/2020 Comfort Shield Adult Diapers Misc Change incotinent products 6 times per day 120units G30.9 Pablito lang MD 03/20/2020 Furosemide 20mg Tablets Take 1/2 Tablet By Mouth @8Am 82tabs R60.9 Pablito South MD 01/01/2020 Medical Compression Stockings/Female/20- 30MMHG/Knee/Med/Long Misc use daily 1pair R22.42 Pablito South MD 11/29/2019 Amlodipine Besylate 10mg Tablets Take One Tablet By Mouth @5PM 28tabs I10 Pablito South MD /0 000 Atorvastatin Calcium 10mg Tablets Take One Tablet By Mouth @5PM 124tabs E78.5 Pablito South MD /0 000 Levothyroxine Sodium 75mcg Tablets Take One Tablet By Mouth @7Am 124tabs E03.9 Pablito South MD Lisinopril 5mg Tablets Take One Tablet By Mouth @5PM 124tabs I10 Pablito South MD Immunizations CPT Code Status Date Vaccine Lot # [id number] Given 10/10/2020 Influenza (>= 6 Months) P.F. Vaccine [id number] Vital Signs Date Vital Result Comment 07/14/2021 11:19am BP Systolic 110 mmHg BP Diastolic 68 mmHg Heart Rate 85 /min Body Temperature 97.3 F Respiratory Rate 16 /min O2 % BldC Oximetry 98 % Weight 152.50 lb Weight 69.174 kg Height 68 inches 5'8" BMI (Body Mass Index) 23.2 kg/m2 BSA (Body Surface Area) 1.82 m2 05/12/2021 11:00am BP Systolic 104 mmHg BP Diastolic 58 mmHg Heart Rate 74 /min Body Temperature 96.0 F Respiratory Rate 18 /min O2 % BldC Oximetry 97 % Weight 156.00 lb Weight 70.762 kg Height 68 inches 5'8" BMI (Body Mass Index) 23.7 kg/m2 BSA (Body Surface Area) 1.84 m2 Results Description No Information Available Procedures Date Code Description Status 05/12/2021 44011 Office/Outpatient Established Lo w MDM 20-29 Min Completed 04/09/2021 84268 Preventive Visit Est > 65 Yrs Co mpleted Medical Devices Description No Information Available Encounters Description No Information Available Assessments Date Code Description Provider 07/14/2021 F41.9 Anxiety disorder, unspecified Gomes heena South MD 07/14/2021 F33.9 Major depressive disorder, recur rent, unspecified Pablito South MD 07/14/2021 R63.4 Abnormal weight loss Pablito chance MD 07/14/2021 I10 Essential (primary) hypertension Pablito South MD 07/14/2021 G47.00 Insomnia, unspecified Pablito South MD 07/14/2021 Z23 Encounter for immunization Nitin South MD 05/12/2021 F41.9 Anxiety disorder, unspecified Gomes heena South MD 05/12/2021 F33.9 Major depressive disorder, recur rent, unspecified Pablito South MD 05/12/2021 R63.4 Abnormal weight loss Pablito chance MD 04/09/2021 Z00.00 Encounter for genera l adult medical examination without abnormal findings Pablito South MD 04/09/2021 I10 Essential (primary) hypertension Pablito South MD 04/09/2021 G47.00 Insomnia, unspecified Pablito South MD 04/09/2021 R63.4 Abnormal weight loss Pablito chance MD Plan of Treatment Future Appointment(s):* 01/12/2022 11:00 am - Pablito South MD at [facility] 07/14/2021 - Pablito South MD* F41.9 Anxiety disorder, unspecified* Follow up:* 6 months. * F33.9 Major depressive disorder, recurrent, unspecified * R63.4 Abnormal weight loss * I10 Essential (primary) hypertension * G47.00 Insomnia, unspecified* New Medication:* - * Z23 Encounter for immunization * All * Follow up:* 6 months Functional Status Description No Information Available Mental Status Description No Information Available Referrals Description No Information Available
--- OUTSIDE RECORDS SUMMARY | 2021-08-07 06:51 | CCD | Continuity of Care Document ---
Author Author Marlene SOUTH M.D. Organization Unknown Address [address] [place] [id number] Phone [phone] Care Team Providers Care Hunting Sales Associate Name Role Phone Pablito South M.D. AUTM [phone] [facility] [phone] [facility] Problems Active Problems Provider Date Peripheral vascular disease Kathleen Mendes DPM-pc Onset: Dystrophia unguium EAG[place] FreyM-pc Onset: 07/21/2019 Onychomycosis Eveline Frey Onset: 07/21/2019 Hammer toe Eveline Frey Onset: 07/21/2019 Pain in limb Eveline Frey Onset: 07/21/2019 [place] of toe EAGLE FreyM-pc Onset: 07/21/2019 Alzheimer's disease Pablito South MD Onset: 11/29/2019 Recurrent major depressive episodes Pablito South MD Onse t: 11/29/2019 Hyperlipidemia Pablito South MD Onset: 11/29/2019 Essential hypertension Pablito South MD Onset: 11/29/2019 Localized superficial swelling of skin Kathleen Mendes DPM-p c Onset: 01/15/2020 Peripheral angiopathy due to diabetes mellitus Kathleen vázquez DPM-pc Onset: 01/15/2020 Pressure ulcer of other site, [...] Use Start: Unknown Patient has never smoked Allergies, Adverse Reactions, Alerts Active Allergies Criticality Reaction | Severity Comments Date NKDA Unable to assess criticality 11/29/2019 NKFA Unable to assess criticality 11/29/2019 NKEA Unable to assess criticality 11/29/2019 Medications Active Medications SIG Qnty Indications Ordering Provide r Date Furosemide 20mg Tablets Take 1 And 1/2 Tablets By Mouth @8Am 90tabs Pablito South MD 2020 BD [employer] Medical Gloves Large Misc R32 Pablito South MD 11/11/2020 Buspirone HCL 5mg Tablets Take 1/2 Tablet By Mouth @8Am and Take 1/2 Tablet By Mouth @5PM 180tabs F33.9 Pablito South MD 10/16/2020 F41.9 Hospital Bed dx g30.9, m19.9 Kaylie Rincon 08/12/2020 Melatonin 10mg Capsule Take One Capsule By Mouth @7PM 90caps G47.00 Pablito South MD 06/10/2020 Imodium A-D 2mg Capsules 1 tab by mouth with each loos stool. do not take more then 6 tabs over 24 hrs. 30caps Pablito South MD 03/25/2020 Comfort Shield Adult Diapers Misc Change incotinent products 6 times per day 120units G30.9 Pablito lang MD 03/20/2020 Toilet Safety Frame Misc use daily 1units G30.9 Pablito South MD 03/20/2020 Transport Chair Misc use daily 1units M19.90 Pablito South MD 03/20/2020 G30.9 R06.02 Furosemide 20mg Tablets Take 1/2 Tablet By Mouth @8Am 82tabs R60.9 Pablito South MD 01/01/2020 Medical Compression Stockings/Female/20- 30MMHG/Knee/Med/Long Misc use daily 1pair R22.42 Pablito South MD 11/29/2019 Aripiprazole 5mg Tablets take 1/2 tablet by mouth @7pm 124tabs F33.9 Pablito South MD Amlodipine Besylate 10mg Tablets Take One Tablet By Mouth @5PM 28tabs I10 Pablito South MD Atorvastatin Calcium 10mg Tablets Take One Tablet By Mouth @5PM 124tabs E78.5 Pablito South MD 000 Citalopram Hydrobromide 20mg Table ts Take 1/2 Tablet By Mouth @5PM 124tabs F33.9 Pablito South MD Levothyroxine Sodium 75mcg Tablets Take One Tablet By Mouth @7Am 124tabs E03.9 Pablito South MD Lisinopril 5mg Tablets Take One Tablet By Mouth @5PM 124tabs I10 Pablito South MD Immunizations CPT Code Status Date Vaccine Lot # [id number] Given 10/10/2020 Influenza (>= 6 Months) P.F. Vaccine [id number] Vital Signs Date Vital Result Comment 05/12/2021 11:00am BP Systolic 104 mmHg BP Diastolic 58 mmHg Heart Rate 74 /min Body Temperature 96.0 F Respiratory Rate 18 /min O2 % BldC Oximetry 97 % Weight 156.00 lb Weight 70.762 kg Height 68 inches 5'8" BMI (Body Mass Index) 23.7 kg/m2 BSA (Body Surface Area) 1.84 m2 04/09/2021 1:17pm BP Systolic 118 mmHg BP Diastolic 62 mmHg Heart Rate 76 /min Body Temperature 97.8 F Respiratory Rate 18 /min O2 % BldC Oximetry 98 % Weight 157.00 lb was able to step on scale today Weight 71.215 kg Height 68 inches 5'8" BMI (Body Mass Index) 23.9 kg/m2 BSA (Body Surface Area) 1.84 m2 Results Description No Information Available Procedures Date Code Description Status 05/12/2021 24492 Office/Outpatient Established Lo w MDM 20-29 Min Completed 04/09/2021 97117 Preventive Visit Est > 65 Yrs Co mpleted Medical Devices Description No Information Available Encounters Description No Information Available Assessments Date Code Description Provider 05/12/2021 F41.9 Anxiety disorder, unspecified Gomes heena [...] chance MD Plan of Treatment Future Appointment(s):* 07/14/2021 11:00 am - Pablito South MD at [facility] 05/12/2021 - Pablito South MD* F41.9 Anxiety disorder, unspecified* Comments: * We strongly not recommend stopping psychiatric medication as she has Alzheimer disorder with Behavior disorder. She was quite depressed in the past. However, family believes she is receiving too much of medication and want to taper it off. We will taper Buspirone and Aripiprazole before Citalopram. She will follow up. If she is still doing okay, we will consider tapering off Citalopram. * Follow up:* 8-10 weeks * Recommendations:* Take Buspirone once a day for 7 days then ever other day for 7 days before stopping it. After Buspirone has been discontinued, give one week then start Aripiprazole taper. Give 1/2 tab daily for 2 weeks then 1/2 every other day for 2 weeks before stopping it. F/U in 8 weeks before citalopram taper can be consider. If she is doing well will start that taper as well. * F33.9 Major depressive disorder, recurrent, unspecified* Comments:* Treatment plan as above. * R63.4 Abnormal weight loss* Comments:* She has been eating well. The patient's body weight remains stable since previous visit and currently weighs 156 lb. Her current BMI is 23.7. Functional Status Description No Information Available Mental Status Description No Information Available Referrals Description No Information Available
--- OUTSIDE RECORDS SUMMARY | 2021-08-07 06:51 | CCD ---
Author Author [facility] Organization [facility] Address Unknown Phone Unavailable Care Team Providers Care Plant Technical Specialist Name Role Phone ZACK WOLF MD Unavailable Unavailable ZCAK WOLF MD Unavailable Unavailable ZACK WOLF MD Unavailable Unavailable ZACK WOLF MD Unavailable Unavailable ZACK WOLF MD Unavailable Unavailable ZACK WOLF MD Unavailable Unavailable ZACK WOLF MD Unavailable Unavailable ZACK WOLF MD Unavailable Unavailable ZACK WOLF MD Unavailable Unavailable ZACK WOLF MD Unavailable Unavailable ZACK WOLF MD Unavailable Unavailable ZACK WOLF MD Unavailable Unavailable ZACK WOLF MD Unavailable Unavailable ZACK WOLF MD Unavailable Unavailable ZACK WOLF MD Unavailable Unavailable ZACK WOLF MD Unavailable Unavailable ZACK WOLF MD Unavailable Unavailable ZACK WOLF MD Unavailable Unavailable ZACK WOLF MD Unavailable Unavailable ZACK WOFL MD Unavailable Unavailable ZACK WOLF MD Unavailable Unavailable ZACK WOLF MD Unavailable Unavailable WOLF, ZACK MD Unavailable Unavailable WOLF ZACK MD Unavailable Unavailable WOLFZACK MD Unavailable Unavailable WOLF ZACK MD Unavailable Unavailable WOLFZACK MD Unavailable Unavailable WOLFZACK MD Unavailable Unavailable WOLFZACK MD Unavailable Unavailable WOLFZACK MD Unavailable Unavailable WOLF ZACK MD Unavailable Unavailable WOLF ZACK MD Unavailable Unavailable WOLFZACK MD Unavailable Unavailable WOLF ZACK MD Unavailable Unavailable WOLFZACK MD Unavailable Unavailable WOLFZACK MD Unavailable Unavailable WOLF ZACK MD Unavailable Unavailable WOLFZACK MD Unavailable Unavailable WOLF ZACK MD Unavailable Unavailable WOLF ZACK MD Unavailable Unavailable WOLF ZACK MD Unavailable Unavailable WOLFZACK MD Unavailable Unavailable WOLFZACK MD Unavailable Unavailable WOLFZACK MD Unavailable Unavailable WOLFZACK MD Unavailable Unavailable WOLFZACK MD Unavailable Unavailable WOLFZACK MD Unavailable Unavailable WOLFZACK MD Unavailable Unavailable WOLFZACK JENNINGS MD Unavailable Unavailable WOLFZACK JENNINGS MD Unavailable Unavailable WOLFZACK JENNINGS MD Unavailable Unavailable WOLFZACK MD Unavailable Unavailable WOLFZACK MD Unavailable Unavailable WOLFZACK MD Unavailable Unavailable WOLFZACK MD Unavailable Unavailable WOLFZACK MD Unavailable Unavailable WOLFZACK MD Unavailable Unavailable WOLFZACK JENNINGS MD Unavailable Unavailable WOLFZACK JENNINGS MD Unavailable Unavailable WOLFZACK JENNINGS MD Unavailable Unavailable WOLFZACK MD Unavailable Unavailable WOLFZACK MD Unavailable Unavailable WOLFZACK MD Unavailable Unavailable WOLFZACK MD Unavailable Unavailable WOLFZACK MD Unavailable Unavailable WOLFZACK JENNINGS MD Unavailable Unavailable WOLFZACK MD Unavailable Unavailable WOLFZACK MD Unavailable Unavailable WOLFZACK MD Unavailable Unavailable WOLF, ZACK MD Unavailable Unavailable WOLFZACK MD Unavailable Unavailable IGOR, J JESSE DPM [facility] Unavailable Unavailable IGOR, J [facility] Unavailable Unavailable IGOR, [facility] Unavailable Unavailable IGOR, [facility] Unavailable Unavailable IGOR, [facility] Unavailable Unavailable IGOR, J [facility] Unavailable Unavailable IGOR, [facility] Unavailable Unavailable IGOR, [facility] Unavailable Unavailable IGOR, [facility] Unavailable Unavailable IGOR, J [facility] Unavailable Unavailable IGOR, [facility] Unavailable Unavailable IGOR, [facility] Unavailable Unavailable Carline COSTA [facility] Unavailable Unavailable Carline [facility]STA [facility] Unavailable Unavailable Carline [facility]STA [facility] Unavailable Unavailable Carline [facility]STA [facility] Unavailable Unavailable Carline COSTA [facility] Unavailable Unavailable IGOR J JES[facility] Unavailable Unavailable Carline COSTA [facility] Unavailable Unavailable Carline COSTA [facility] Unavailable Unavailable Carline COSTA [facility] Unavailable Unavailable Carline COSTA [facility] Unavailable Unavailable Carline COSTA [facility] Unavailable Unavailable Carline COSTA [facility] Unavailable Unavailable Carline [facility]STA [facility] Unavailable Unavailable Carline [facility]STA [facility] Unavailable Unavailable Car[facility] Unavailable Unavailable Carline [facility]STA [facility] Unavailable Unavailable Re-disclosure Warning The records that you are about to access may contain information from federally-assisted alcohol or drug abuse programs. If such information is present, then the following federally mandated warning applies: This information has been disclosed to you from records protected by federal confidentiality rules (42 CFR part 2). The federal rules prohibit you from making any further disclosure of this information unless further disclosure is expressly permitted by the written consent of the person to whom it pertains or as otherwise permitted by 42 CFR part 2. A general authorization for the release of medical or other information is NOT sufficient for this purpose. The Federal rules restrict any use of the information to criminally investigate or prosecute any alcohol or drug abuse patient.The records that you are about to access may contain highly sensitive health information, the redisclosure of which is protected by Article 27-F of the [facility] Public Health law. If you continue you may have access to information: Regarding HIV / AIDS; Provided by facilities licensed or operated by the [facility] Office of Mental Health; or Provided by the [facility] Office for People With Developmental Disabilities. If such information is present, then the following [facility] mandated warning applies: This information has been disclosed to you from confidential records which are protected by state law. State law prohibits you from making any further disclosure of this information without the specific written consent of the person to whom it pertains, or as otherwise permitted by law. Any unauthorized further disclosure in violation of state law may result in a fine or senior care sentence or both. A general authorization for the release of medical or other information is NOT sufficient authorization for further disc losure. Family History Family Member Name Family Member Gender Family Member Status Date o f Status Description Data Source(s) Unknown Unknown Problem [facility] ([facility]) Unknown Male Problem [facility] ([facility]) Unknown Female Problem [facility] ([facility]) Unknown Female Problem [facility] ([facility]) Unknown Female Problem [facility] ([facility]) Unknown Female Problem [facility] ([facility]) Unknown Female Problem [facility] ([facility]) Unknown Female Problem [facility] ([facility]) Encounters Encounter Providers Location Date Indications Data Source(s ) Outpatient Attender: ZACK WOLF MDConsultant: ZACK Blank MD 07/14/2021 11:05:00 AM [facility] 07/14/2021 11:05:00 AM [facility] Outpatient Attender: ZACK WOLF MDConsultant: ZACK Blank MD 05/12/2021 10:48:00 AM [facility] 05/12/2021 10:48:00 AM [facility] Outpatient Attender: ZACK WOLF MDConsultant: ZACK Blank MD 04/09/2021 01:01:00 PM [facility] 04/09/2021 01:01:00 PM [facility] Outpatient Attender: ZACK WOLF MDConsultant: ZACK Blank MD 12/04/2020 09:16:00 AM [facility] 12/04/2020 09:16:00 AM [facility] Outpatient Attender: ZACK WOLF MDConsultant: ZACK Blank MD 11/28/2020 11:29:00 AM [facility] 11/28/2020 12:29:00 PM [facility] Outpatient Attender: ZACK WOLF MDConsultant: ZACK Blank MD 11/27/2020 03:15:00 PM [facility] 11/27/2020 03:15:00 PM [facility] Outpatient Attender: ZACK WOLF MDConsultant: ZACK Blank MD 10/30/2020 09:21:00 AM [facility] 10/30/2020 09:21:00 AM [facility] Outpatient Attender: ZACK WOLF MDConsultant: ZACK Blank MD 10/29/2020 09:11:00 AM EST - 10/29/2020 09:11:00 AM [facility] Outpatient Attender: ZACK WOLF MDConsultant: ZACK Blank MD 10/10/2020 10:44:00 AM EST - 10/10/2020 10:44:00 AM [facility] Outpatient Attender: JESSE COSTA DPM PCConsultant: LOBO WOLF MD 09/16/2020 10:53:00 AM EST - 09/16/2020 10:53:00 AM [facility] Outpatient Attender: JESSE COSTA DPM PCConsultant: LOBO WOLF MD 07/25/2020 09:30:00 AM EDT - 07/25/2020 09:30:00 AM EDT [facility] Outpatient Attender: ZACK WOLF MDConsultant: ZACK Blank MD 06/04/2020 01:54:00 PM EDT - 06/04/2020 01:54:00 PM EDT [facility] Immunizations Vaccine Date Status Description Data Source(s) COVID-19 VACCINE Moderna 01/03/2021 12:00:00 AM EDT completed [facility] Vaccine Series Complete: YESThis Data wa s Submitted to [facility] Via [employer]. COVID-19 VACCINE Moderna 12/06/2020 12:00:00 AM EST completed [facility] Vaccine Series Complete: NOThis Data was Submitted to [facility] Via [employer]. New in 2011. IIV4 10/10/2020 10:28:00 AM EST completed [facility] ([facility]) Medications Medication Brand Name Start Date Product Form Dose Route Admi nistrative Instructions Pharmacy Instructions Status Indications Reaction Description Data Source(s) 300 mg 08/02/2021 12:00:00 AM EDT capsule 14 TAKE ONE CAPSULE BY MOUTH TWICE A DAY TAKE ONE CAPSULE BY MOUTH TWICE A DAY SOLD: 08/02/2021 [facility] Furosemide 20 MG Oral Tablet Furosemide 11/29/2020 12:00:00 AM EST active [facility] ([facility]) BD [facility] [facility] Gloves Large 11/11/2020 12:00:00 AM EST active [facility] ([facility]) buspirone hydrochloride 5 MG Oral Tablet Buspirone HCL 10/16/2020 12:00:00 AM EST active [facility] ([facility]) buspirone hydrochloride 10 MG Oral Tablet Buspirone HCL 10/10/2020 12:00:00 AM EST completed [facility] ([facility]) Hospital Bed 08/12/2020 12:00:00 AM EST activ e [facility] ([facility]) Melatonin 10 MG Oral Tablet Melatonin 06/10/2020 12:00:00 AM EDT active [facility] ([facility]) Melatonin 5 MG Oral Capsule Melatonin 02/13/2020 12:00:00 AM EDT ORAL completed [facility] ([facility]) Insurance Providers Payer name Policy type / Coverage type Policy ID Covered republican ID Covered republican's relationship to shepherd Policy Shepherd Plan Information Medicare Natl Govt Servic Medicare Primary [id number] Self [id number] AETNA MEDICARE [id number] SP [id number] SHZ AETNA MEDICARE [id number] SP [id number] SHZ AETNA MEDICARE [id number] SP [id number] SHZ AETNA MEDICARE [id number] SP [id number] SHZ TODAYS OPTIONS [id number] [place] [id number] [place]GR[place] U AMER PROG TODAYS OPTIONS G [id number] Self [id number] Wellcare/Todays Optmcr Commercial [id number] Self [id number] AETNA MEDICARE -O/P CO [id number] Aetna Medicare Commercial [id number] Self [id number] AETNA MEDICARE CO [id number] SHZ AETNA MEDICARE COMPLETE G [id number] Self [id number] AETNA [facility] CO [id number] VNA MEDICAID MANAGED I [id number] Self [id number] MEDICAID M [id number] Self [id number] VNA MEDICAID MANAGED I [id number] Self [id number] Todays Option Medicare Commercial [id number] Self [id number] TODAYS OPTIONS/MAURITIAN O [id number] O [id number] MEDICARE C [id number] S [id number] A Todays Option Medicare Commercial [id number] Self [id number] Today's Options/Amer Prog Commercial [id number] Self [id number] Today's Options/Amer Prog Commercial [id number] Self [id number] Todays Option Medicare Commercial [id number] Self [id number] Todays Option Medicare Commercial [id number] Self [id number] Todays Option Medicare Commercial [id number] Self Todays Options [id number] [facility] P [id number] S [id number] MEDICARE COMPLETE [id number] SP [id number] MEDICARE COMPLETE-UHC P [id number] S [id number] MEDICARE COMPLETE-UHC S UNAVAILABLE [id number] S UNAVAILABLE SECURE HORIZONS P [id number] S [id number] SECURE HORIZONS UNHC MEDICARE-O/P [id number] 18 [id number] TODAYS OPTIONS [id number] SP [id number] AETNA MEDICARE -O/P [id number] MEDICAID -O/P [id number] 18 [id number] AETNA [facility] [id number] MEDICAID [id number] SP [id number] AETNA MEDICARE O [id number] S [id number] SHZ MEDICAID M [id number] S [id number] AETNA MEDICARE O [id number] S [id number] SHZ MEDICAID [id number] Medicaid [place] Medigap Part B [id number] Self [id number] Aetna Ppo/Pos/Nap/MC Commercial [id number] Self [id number] [place] Medigap Part B [id number] Self [id number] Aetna Ppo/Pos/Nap/MC Medigap Part B [id number] Self [id number] Medicare Natl Gov't Servi Medicare Primary [id number] Self [id number] Todays Option Medicare Commercial [id number] Self [id number] Todays Option Medicare Commercial [id number] Self [id number] Todays Option Medicare Commercial [id number] Self [id number] Problems, Conditions, and Diagnoses Code Display Name Description Problem Type Effective Dates Data Source(s) R634 Abnormal weight loss Abnormal weight loss Diagnosis 04/09/2021 01:01:00 PM EDT [facility] G4700 Insomnia, unspecified Insomnia, unspecified Diagnosis 04/09/2021 01:01:00 PM EDT [facility] I10 Essential (primary) hypertension Essential (primary) h ypertension Diagnosis [facility] Encounter for general adult medical exam ination with abnormal findings Encounter for general adult medical examination with abnormal findings Diagnosis 04/09/2021 01:01:00 PM EDT [facility] G309 Alzheimer's disease, unspecified Alzheimer's dis ease, unspecified Diagnosis 12/04/2020 09:16:00 AM [facility] F419 Anxiety disorder, unspecified Anxiety disorder, unspec ified Diagnosis 12/04/2020 09:16:00 AM [facility] R2242 Localized swelling, mass and lump, left lower limb Localized swelling, mass and lump, left lower limb Diagnosis 11/28/2020 11:29:00 AM [facility] R2241 Localized swelling, mass and lump, right lower limb Localized swelling, mass and lump, right lower limb Diagnosis 11/28/2020 11:29:00 AM [facility] R609 Edema, unspecified Edema, unspecified Diagnosis 03:15:00 PM [facility] D12242 Encounter for other preprocedural examin ation Encounter for other preprocedural examination Diagnosis 10/30/2020 09:21:00 AM [facility] I739 Peripheral vascular disease, unspecified Peripheral vascular disease, unspecified Diagnosis 10/30/2020 09:21:00 AM [facility] F0390 Unspecified dementia without behavioral disturbance Unspecified dementia without behavioral disturbance Diagnosis 10/29/2020 09:11:00 AM [facility] Z23 Encounter for immunization Encounter for immunization Diagnosis 10/10/2020 10:44:00 AM [facility] F339 Major depressive disorder, recurrent, un specified Major depressive disorder, recurrent, unspecified Diagnosis 10/10/2020 10:44:00 AM [facility] L84 Corns and callosities Corns and callosities Diagnosis 09/16/2020 10:53:00 AM EST [facility] L603 Nail dystrophy Nail dystrophy Diagnosis 09/16/2020 10:53: 00 AM EST [facility] B351 Tinea unguium Tinea unguium Diagnosis 09/16/2020 10:53:00 AM [facility] E1151 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 gangrene Type 2 diabetes mellitus with diabetic p eripheral angiopathy without gangrene Diagnosis 09/16/2020 10:53:00 AM [facility] V51577 Pain in right foot Pain in right foot Diagnosis 09:30:00 AM EDT [facility] D05117 Pressure ulcer of other site, stage 1 Pr essure ulcer of other site, stage 1 Diagnosis 07/25/2020 09:30:00 AM EDT [facility] G47.00 Insomnia Insomnia Problem 04/09/2021 12:00:00 AM ED T [facility] ([facility]) R63.4 Weight decreased Weight decreased Problem 04/09/2021 12 :00:00 AM EDT [facility] ([facility]) L89.891 Pressure ulcer of other site, stage 1 Pr essure ulcer of other site, stage 1 Problem 07/25/2020 12:00:00 AM EDT [facility] ([facility]) Surgeries/Procedures Procedure Description Date Indications Data Source(s) OFFICE OUTPATIENT VISIT 15 MINUTES 05/12/2021 12:00:00 AM EDT [facility] ([facility]) PERIODIC PREVENTIVE MED EST PATIENT 65YRS&> 04/09/2021 12:00:00 AM EDT [facility] ([facility]) OFFICE OUTPATIENT VISIT 15 MINUTES 12/04/2020 12:00:00 AM EST [facility] ([facility]) OFFICE OUTPATIENT VISIT 15 MINUTES 11/27/2020 12:00:00 AM EST [facility] ([facility]) OFFICE OUTPATIENT VISIT 15 MINUTES 10/29/2020 12:00:00 AM EST [facility] ([facility]) Pare Hyperkeratotic Lesion, 2-4 09/16/2020 12:00:00 AM EST [facility] ([facility]) Debridement Nails Any Method 1-5 09/16/2020 12:00:00 A M EST [facility] ([facility]) Pare Hyperkeratotic Lesion, 2-4 07/25/2020 12:00:00 AM EDT [facility] ([facility]) Debridement Nails Any Method 1-5 07/25/2020 12:00:00 A M EDT [facility] ([facility]) Results ID Date Data Source [id number] 12/04/2020 10:03:00 AM EST [facility] ([facility]) Name Value Range Interpretation Code Description Data Jess rce(s) Supporting Document(s) Natriuretic peptide.B prohormone N-Terminal [Mass/volu me] in Serum or Plasma Laboratory test result [facility] ([facility]) Thyrotropin [Units/volume] in Serum or Plasma Laboratory test result [facility] ([facility]) Thyroxine (T4) free [Mass/volume] in Serum or Plasma Laboratory emelyn t result [facility] ([facility]) ID Date Data Source [id number] 12/04/2020 10:03:00 AM EST [facility] ([facility]) Name Value Range Interpretation Code Description Data Jess rce(s) Supporting Document(s) Cholesterol [Mass/volume] in Serum or Plasma Laboratory test result [facility] ([facility]) Cholesterol.total/Cholesterol in HDL [Molar ratio] in Serum or Plasma Laboratory test result [facility] ([facility]) High Density Lipoprotein Laboratory test result [facility] ([facility]) Cholesterol in LDL/Cholesterol in HDL [Mass Ratio] in Serum or Plasma Laboratory test result [facility] ([facility]) Cholesterol in LDL [Mass/volume] in Serum or Plasma Laboratory test result [facility] ([facility]) Triglyceride [Mass/volume] in Serum or Plasma Laboratory test result [facility] ([facility]) ID Date Data Source [id number] 12/04/2020 10:03:00 AM EST [facility] ([facility]) Name Value Range Interpretation Code Description Data Jess rce(s) Supporting Document(s) Alanine aminotransferase [Enzymatic activity/volume] i n Serum or Plasma Laboratory test result [facility] ([facility]) Albumin [Mass/volume] in Serum or Plasma Laboratory test result [facility] ([facility]) Calcium [Mass/volume] in Serum or Plasma Laboratory test result [facility] ([facility]) Carbon dioxide, total [Moles/volume] in Serum or Plasma Labo ratory test result [facility] ([facility]) Chloride [Moles/volume] in Serum or Plasma Laboratory test result [facility] ([facility]) Creatinine [Mass/volume] in Serum or Plasma Laboratory test result [facility] ([facility]) Glucose [Mass/volume] in Serum or Plasma Laboratory test result [facility] ([facility]) Alkaline phosphatase [Enzymatic activity/volume] in Se rum or Plasma Laboratory test result [facility] ([facility]) Potassium [Moles/volume] in Serum or Plasma Laboratory test result [facility] ([facility]) Protein [Mass/volume] in Serum or Plasma Laboratory test result [facility] ([facility]) Urea nitrogen [Mass/volume] in Serum or Plasma Laboratory test result [facility] ([facility]) Sodium [Moles/volume] in Serum or Plasma Laboratory test result [facility] ([facility]) Aspartate aminotransferase [Enzymatic activity/volume] in Serum or Plasma Laboratory test result [facility] ([facility]) ID Date Data Source [id number] 12/04/2020 10:03:00 AM EST [facility] ([facility]) Name Value Range Interpretation Code Description Data Jess rce(s) Supporting Document(s) Hemoglobin A1c/Hemoglobin.total in Blood Laboratory test result [facility] ([facility]) ID Date Data Source [id number] 12/04/2020 10:03:00 AM EST [facility] ([facility]) Name Value Range Interpretation Code Description Data Jess rce(s) Supporting Document(s) Z#Other Observations Laboratory test result [facility] ([facility]) ID Date Data Source [id number] 12/04/2020 10:03:00 AM EST [facility] ([facility]) Name Value Range Interpretation Code Description Data Jess rce(s) Supporting Document(s) Misc Test #5 Laboratory test result [facility] ([facility]) ID Date Data Source [id number] 12/02/2020 03:35:00 PM EST [facility] [address] [place] [address] PHONE: [phone] FAX: [phone] Name .................. : SULTANA Blnak Acct Number.................. : [id number] ROOM. ................. : Number ................... : [id number] Stay type ............. : O/P Discharge Date......... ... : 11/28/20 Admit Date .... ..... : 11/28/20 Admit Phys .................... : Payteller Date of ....... : 1945 Family Phys ................... : [employer] HARD Phone .................. : [phone] Age ................................ : 75 Film# .................. .:[id number] Sex ................................. : F Unsigned transcriptions are preliminary reports and do not represent a medical or legal document DOPPLER VENOUS BILAT LEG 90074 COMPLETE:11/28/20 12:05 KNB 2053 (REASON FOR PROCESS: SWELLING, MASS, LUMP BILATERAL LEG VENOUS DUPLEX DOPPLER ULTRASOUND: INDICATION: Swelling, lump. FINDINGS: Normal compressibility is demonstrated at bilateral common femoral, superficial femoral and popliteal veins without internal defects to suggest DVT. Normal color and spectral Doppler is demonstrated with augmentation. IMPRESSION: No DVT in bilateral common femoral veins to the popliteal veins. Electronically Reviewed and Signed By Sergo Callahan MD , 12/02/20 15:35, HECTOR Transcribe Initials: VIDHI , Transcribe Date: 11/28/20 19:25, Dictation Date: Copy for: [address] [place] [address] REC Page 1 of 1 Name Value Range Interpretation Code Description Data Jess rce(s) Supporting Document(s) ID Date Data Source [id number] 11/29/2020 03:28:00 PM [facility] [address] [place] [address] PHONE: [phone] FAX: [phone] Name .................. : SULTANA MCGUIRE Abhay Acct Number.................. : [id number] ROOM. ................. : MR Number ................... : [id number] Stay type ............. : O/P Discharge Date......... ... : 11/28/20 Admit Date .... ..... : 11/28/20 Admit Phys .................... : WOLF HARD Date of ....... : 1945 Family Phys ................... : [employer] HARD Phone .................. : [phone] Age ................................ : 75 Film# .................. .:[id number] Sex ................................. : F Unsigned transcriptions are preliminary reports and do not represent a medical or legal document FOOT COMP - BILATERAL 79964 COMPLETE:11/28/20 13:15 KBO [id number] (REASON FOR PROCESS: SWELLING BILATERAL FOOT SERIES: INDICATION: Swelling. FINDINGS/IMPRESSION: There is mild osseous demineralization of the bilateral feet. There is no evidence of fracture or dislocation bilaterally. In the left mid-foot, there is moderate degenerative change. Small calcaneal spurs are noted bilaterally. There is no evidence of significant degenerative change in the right foot. No acute soft tissue abnormality bilaterally. Electronically Reviewed and Signed By Dakota Maldonado M.D. , 11/29/20 15:28, KAYLA Transcribe Initials: VIDHI , Transcribe Date: 11/29/20 01:02, Dictation Date: Copy for: [facility] Page 1 of 1 Name Value Range Interpretation Code Description Data Jess rce(s) Supporting Document(s) ID Date Data Source [id number] 11/27/2020 04:05:00 PM EST [facility] ([facility]) Name Value Range Interpretation Code Description Data Jess rce(s) Supporting Document(s) Comprehensive Metabo Laboratory test result [facility] ([facility]) Is patient fasting? N Sodium 139 meq/L 134-153 [facility] ([facility]) Is patient fasting? N Potassium 4.6 meq/L 3.6-5.0 [facility] ([facility]) Is patient fasting? N Chloride 102 meq/L 98-107 [facility] ([facility]) Is patient fasting? N Co2 23 meq/L 22-30 [facility] ([facility]) Is patient fasting? N Glucose 151 mg/dL 70-99 Above high normal [facility] ([facility]) Is patient fasting? N BUN 17 mg/dL 7-21 [facility] ([facility]) Is patient fasting? N Creatinine 0.6 mg/dL 0.7-1.5 Below low normal [facility] ( [facility]) Is patient fasting? N Albumin 4.3 g/dL 3.9-5.0 [facility] ([facility]) Is patient fasting? N BUN/Creat 28 8-27 Above high normal [facility] ([facility]) Is patient fasting? N Total Protein 6.6 g/dL 6.3-8.2 [facility] ([facility]) Is patient fasting? N Globulin 2.3 GM/DL 2.4-3.2 Below low normal [facility] ( [facility]) Is patient fasting? N A/G Ratio 1.9 0.8-2.0 [facility] ([facility]) Is patient fasting? N Calcium 9.5 mg/dL 8.4-10.2 [facility] ([facility]) Is patient fasting? N Total Bili Laboratory test result 0.2-1.3 [facility] ([facility]) Is patient fasting? N Sgot/Ast 17 U/L 5-40 [facility] ([facility]) Is patient fasting? N Alkaline Phos 122 U/L 38-126 [facility] ([facility]) Is patient fasting? N Anion Gap 14.0 mmol/L 8.0-[facility].0 [facility] Is patient fasting? N SGPT/Alt 15 U/L 7-56 [facility] ([facility]) Is patient fasting? N Age 75 yrs [facility] ([facility]) Is patient fasting? N Non-Aa GFR Laboratory test result [facility] ([facility]) Is patient fasting? N Afr Amer GFR Laboratory test result [facility] ([facility]) Is patient fasting? N ID Date Data Source [id number] 11/27/2020 04:05:00 PM EST [facility] ([facility]) Name Value Range Interpretation Code Description Data Jess rce(s) Supporting Document(s) Natriuretic peptide.B prohormone N-Terminal [Mass/volu me] in Serum or Plasma 185 pg/mL 0-125 Above high normal [facility] ([facility]) Is patient fasting? N Fibrin D-dimer [Presence] in Platelet poor plasma 1.86 ug/mL 0.27-0.50 Above high normal [facility] ([facility]) Is patient fasting? N ID Date Data Source [id number] 11/27/2020 03:59:00 PM EST [facility] ([facility]) Name Value Range Interpretation Code Description Data Jess rce(s) Supporting Document(s) Foot Complete-3 Or More VW RT Laboratory test result [facility] ([facility]) US Doppler Uni Venous Leg RT Laboratory test result [facility] ([facility]) ID Date Data Source [id number] 11/27/2020 10:22:00 PM EST [facility] Name Value Range Interpretation Code Description Data Jess rce(s) Supporting Document(s) COMPREHENSIVE METABOLIC PANEL [facility] COMPREHENSIVE METABOLIC PANEL Sodium [Moles/volume] in Serum or Plasma 139 mEq/L 134 - 153 [facility] Potassium [Moles/volume] in Serum or Plasma 4.6 mEq/L 3.6 - 5.0 [facility] Chloride [Moles/volume] in Serum or Plasma 102 mEq/L 98 - 107 [facility] Carbon dioxide, total [Moles/volume] in Serum or Plasma 23 MEQ/L 22 - 30 [facility] Glucose [Mass/volume] in Serum or Plasma 151 MG/DL 70 - 99 H [facility] BUN 17 MG/DL 7 - 21 [facility] al Creatinine [Mass/volume] in Serum or Plasma 0.6 MG/DL 0.7 - 1.5 L [facility] BUN/CREAT 28 8 - 27 H [facility] al Protein [Mass/volume] in Serum or Plasma 6.6 G/DL 6.3 - 8.2 [facility] Albumin [Mass/volume] in Serum or Plasma 4.3 G/DL 3.9 - 5.0 [facility] Globulin [Mass/volume] in Serum by calculation 2.3 GM/DL 2.4 - 3.2 L [facility] A/G RATIO 1.9 0.8 - 2.0 [facility] Calcium [Mass/volume] in Serum or Plasma 9.5 MG/DL 8.4 - 10.2 [facility] Bilirubin.total [Mass/volume] in Serum or Plasma <0.7 MG/DL 0.2 - 1.3 [facility] Alkaline phosphatase [Enzymatic activity/volume] in Serum or Plasma 122 U/L 38 - 126 [facility] Aspartate aminotransferase [Enzymatic activity/volume] in Serum or Plasma 17 U/L 5 - 40 [facility] Alanine aminotransferase [Enzymatic activity/volume] in Seru m or Plasma 15 U/L 7 - 56 [facility] Anion gap 3 in Serum or Plasma 14.0 mmol/L 8.0 - 16.0 [facility] AGE 75 yrs [facility] al NON-AA GFR >60 mL/min [facility] ital AFR AMER GFR >60 [facility] Male GFR In terprentation 20-49 yrs >60 mL/min Normal 50-59 yrs >56 mL/min Normal 60-69 yrs >49 mL/min Normal 70-79yrs >42 mL/min Normal 80 and above >35 mL/min Normal Female GFR Interpretation 20-39 yrs >60 mL/min Normal 40-49 yrs >58 mL/min Normal 50-59 yrs >51 mL/min Normal 60-69 yrs >45 mL/min Normal 70-79 yrs >39 mL/min Normal 80 and above >32 mL/min Normal ID Date Data Source [id number] 11/27/2020 09:08:00 PM EST [facility] Name Value Range Interpretation Code Description Data Jess rce(s) Supporting Document(s) Fibrin D-dimer FEU [Mass/volume] in Platelet poor plasma 1.86 ug /mL 0.27 - 0.50 H [facility] ID Date Data Source [id number] 11/27/2020 08:42:00 PM EST [facility] Name Value Range Interpretation Code Description Data Jess rce(s) Supporting Document(s) BNP 185 PG/ML 0 - 125 [facility] ID Date Data Source [id number] 11/03/2020 08:30:00 AM EST [facility] Name Value Range Interpretation Code Description Data Jess rce(s) Supporting Document(s) SARS coronavirus 2 RNA Not Detected [facility] This lab was ordered by [facility] and reported by [facility]. ID Date Data Source [id number] 10/30/2020 09:19:00 AM EST [facility] ([facility]) Name Value Range Interpretation Code Description Data Jess rce(s) Supporting Document(s) Thyrotropin [Units/volume] in Serum or Plasma 1.40 uIU/mL 0.47-5.01 [facility] ([facility]) FASTING~.~.~<DG1.3.1>Z01.818</DG1.3.1><DG1.3.1>Z01.818</DG1.3.1><DG1.3.1>E78.5</ DG1.3.1><DG1 Thyroxine (T4) free [Mass/volume] in Serum or Plasma 1.08 ng/dL 0.93- 1.70 [facility]) FASTING~.~.~<DG1.3.1>Z01.818</DG1.3.1><DG1.3.1>Z01.818</DG1.3.1><DG1.3.1>E78.5</ DG1.3.1><DG1 ID Date Data Source [id number] 10/30/2020 09:19:00 AM EST [facility] Name Value Range Interpretation Code Description Data Jess rce(s) Supporting Document(s) Cve Panel Laboratory test result [facility] ([facility]) FASTING~.~.~<DG1.3.1>Z01.818</DG1.3.1><DG1.3.1>Z01.818</DG1.3.1><DG1.3.1>E78.5</ DG1.3.1><DG1 Cholesterol 174 mg/dL 131-200 [facility] ([facility]) FASTING~.~.~<DG1.3.1>Z01.818</DG1.3.1><DG1.3.1>Z01.818</DG1.3.1><DG1.3.1>E78.5</ DG1.3.1><DG1 Triglycerides 208 mg/dL 35-160 Above high normal [facility] ([facility]) FASTING~.~.~<DG1.3.1>Z01.818</DG1.3.1><DG1.3.1>Z01.818</DG1.3.1><DG1.3.1>E78.5</ DG1.3.1><DG1 LDL 95 mg/dL 65-175 [facility] ([facility]) FASTING~.~.~<DG1.3.1>Z01.818</DG1.3.1><DG1.3.1>Z01.818</DG1.3.1><DG1.3.1>E78.5</ DG1.3.1><DG1 HDL 52 mg/dL 29-86 [facility] ([facility]) FASTING~.~.~<DG1.3.1>Z01.818</DG1.3.1><DG1.3.1>Z01.818</DG1.3.1><DG1.3.1>E78.5</ DG1.3.1><DG1 Risk Factor 3.3 3.2-4.4 [facility] ([facility]) FASTING~.~.~<DG1.3.1>Z01.818</DG1.3.1><DG1.3.1>Z01.818</DG1.3.1><DG1.3.1>E78.5</ DG1.3.1><DG1 LDL/HDL 1.83 1.47-3.22 [facility] ([facility]) FASTING~.~.~<DG1.3.1>Z01.818</DG1.3.1><DG1.3.1>Z01.818</DG1.3.1><DG1.3.1>E78.5</ DG1.3.1><DG1 ID Date Data Source [id number] 10/30/2020 09:19:00 AM EST [facility] ([facility]) Name Value Range Interpretation Code Description Data Jess rce(s) Supporting Document(s) Comprehensive [employer] Laboratory test result [facility] ([facility]) FASTING~.~.~<DG1.3.1>Z01.818</DG1.3.1><DG1.3.1>Z01.818</DG1.3.1><DG1.3.1>E78.5</ DG1.3.1><DG1 Potassium 4.5 meq/L 3.6-5.0 [facility] ([facility]) FASTING~.~.~<DG1.3.1>Z01.818</DG1.3.1><DG1.3.1>Z01.818</DG1.3.1><DG1.3.1>E78.5</ DG1.3.1><DG1 Sodium 140 meq/L 134-153 [facility] ([facility]) FASTING~.~.~<DG1.3.1>Z01.818</DG1.3.1><DG1.3.1>Z01.818</DG1.3.1><DG1.3.1>E78.5</ DG1.3.1><DG1 Chloride 105 meq/L 98-107 [facility] ([facility]) FASTING~.~.~<DG1.3.1>Z01.818</DG1.3.1><DG1.3.1>Z01.818</DG1.3.1><DG1.3.1>E78.5</ DG1.3.1><DG1 Co2 24 meq/L 22-30 [facility] ([facility]) FASTING~.~.~<DG1.3.1>Z01.818</DG1.3.1><DG1.3.1>Z01.818</DG1.3.1><DG1.3.1>E78.5</ DG1.3.1><DG1 Glucose 131 mg/dL 70-99 Above high normal [facility] ([facility]) FASTING~.~.~<DG1.3.1>Z01.818</DG1.3.1><DG1.3.1>Z01.818</DG1.3.1><DG1.3.1>E78.5</ DG1.3.1><DG1 BUN 11 mg/dL 7-21 [facility] ([facility]) FASTING~.~.~<DG1.3.1>Z01.818</DG1.3.1><DG1.3.1>Z01.818</DG1.3.1><DG1.3.1>E78.5</ DG1.3.1><DG1 Creatinine 0.6 mg/dL 0.7-1.5 Below low normal [facility] ( [facility]) FASTING~.~.~<DG1.3.1>Z01.818</DG1.3.1><DG1.3.1>Z01.818</DG1.3.1><DG1.3.1>E78.5</ DG1.3.1><DG1 BUN/Creat 18 8-27 [facility] ([facility]) FASTING~.~.~<DG1.3.1>Z01.818</DG1.3.1><DG1.3.1>Z01.818</DG1.3.1><DG1.3.1>E78.5</ DG1.3.1><DG1 Total Protein 6.8 g/dL 6.3-8.2 [facility] ([facility]) FASTING~.~.~<DG1.3.1>Z01.818</DG1.3.1><DG1.3.1>Z01.818</DG1.3.1><DG1.3.1>E78.5</ DG1.3.1><DG1 Albumin 4.1 g/dL 3.9-5.0 [facility] ([facility]) FASTING~.~.~<DG1.3.1>Z01.818</DG1.3.1><DG1.3.1>Z01.818</DG1.3.1><DG1.3.1>E78.5</ DG1.3.1><DG1 Globulin 2.7 GM/DL 2.4-3.2 [facility] ([facility]) FASTING~.~.~<DG1.3.1>Z01.818</DG1.3.1><DG1.3.1>Z01.818</DG1.3.1><DG1.3.1>E78.5</ DG1.3.1><DG1 A/G Ratio 1.5 0.8-2.0 [facility] ([facility]) FASTING~.~.~<DG1.3.1>Z01.818</DG1.3.1><DG1.3.1>Z01.818</DG1.3.1><DG1.3.1>E78.5</ DG1.3.1><DG1 Calcium 9.0 mg/dL 8.4-10.2 [facility] ([facility]) FASTING~.~.~<DG1.3.1>Z01.818</DG1.3.1><DG1.3.1>Z01.818</DG1.3.1><DG1.3.1>E78.5</ DG1.3.1><DG1 Total Bili Laboratory test result 0.2-1.3 [facility] ([facility]) FASTING~.~.~<DG1.3.1>Z01.818</DG1.3.1><DG1.3.1>Z01.818</DG1.3.1><DG1.3.1>E78.5</ DG1.3.1><DG1 Alkaline Phos 120 U/L 38-126 [facility] ([facility]) FASTING~.~.~<DG1.3.1>Z01.818</DG1.3.1><DG1.3.1>Z01.818</DG1.3.1><DG1.3.1>E78.5</ DG1.3.1><DG1 Sgot/Ast 20 U/L 5-40 [facility] ([facility]) FASTING~.~.~<DG1.3.1>Z01.818</DG1.3.1><DG1.3.1>Z01.818</DG1.3.1><DG1.3.1>E78.5</ DG1.3.1><DG1 SGPT/Alt 16 U/L 7-56 [facility] ([facility]) FASTING~.~.~<DG1.3.1>Z01.818</DG1.3.1><DG1.3.1>Z01.818</DG1.3.1><DG1.3.1>E78.5</ DG1.3.1><DG1 Anion Gap 11.0 mmol/L 8.0-16.0 [facility] ([facility]) FASTING~.~.~<DG1.3.1>Z01.818</DG1.3.1><DG1.3.1>Z01.818</DG1.3.1><DG1.3.1>E78.5</ DG1.3.1><DG1 Age 75 yrs [facility] ([facility]) FASTING~.~.~<DG1.3.1>Z01.818</DG1.3.1><DG1.3.1>Z01.818</DG1.3.1><DG1.3.1>E78.5</ DG1.3.1><DG1 Non-Aa GFR Laboratory test result [facility] ([facility]) FASTING~.~.~<DG1.3.1>Z01.818</DG1.3.1><DG1.3.1>Z01.818</DG1.3.1><DG1.3.1>E78.5</ DG1.3.1><DG1 Afr Amer GFR Laboratory test result [facility] ([facility]) FASTING~.~.~<DG1.3.1>Z01.818</DG1.3.1><DG1.3.1>Z01.818</DG1.3.1><DG1.3.1>E78.5</ DG1.3.1><DG1 ID Date Data Source [id number] 10/30/2020 09:19:00 AM EST [facility] ([facility]) Name Value Range Interpretation Code Description Data Jess rce(s) Supporting Document(s) CBC W/Automated Diff Laboratory test result [facility] FASTING~.~.~<DG1.3.1>Z01.818</DG1.3.1><DG1.3.1>Z01.818</DG1.3.1><DG1.3.1>E78.5</ DG1.3.1><DG1 WBC 5.9 10^3/uL 4.2-11.0 [facility] ([facility]) FASTING~.~.~<DG1.3.1>Z01.818</DG1.3.1><DG1.3.1>Z01.818</DG1.3.1><DG1.3.1>E78.5</ DG1.3.1><DG1 RBC 4.37 10^6/uL 4.20-5.40 [facility] ([facility]) FASTING~.~.~<DG1.3.1>Z01.818</DG1.3.1><DG1.3.1>Z01.818</DG1.3.1><DG1.3.1>E78.5</ DG1.3.1><DG1 Hematocrit 39.3 % 37.0-47.0 [facility] ([facility]) FASTING~.~.~<DG1.3.1>Z01.818</DG1.3.1><DG1.3.1>Z01.818</DG1.3.1><DG1.3.1>E78.5</ DG1.3.1><DG1 Hemoglobin 12.8 g/dL 12.0-16.0 [facility] ([facility]) FASTING~.~.~<DG1.3.1>Z01.818</DG1.3.1><DG1.3.1>Z01.818</DG1.3.1><DG1.3.1>E78.5</ DG1.3.1><DG1 MCH 29.3 pg 27.0-34.0 [facility] ([facility]) FASTING~.~.~<DG1.3.1>Z01.818</DG1.3.1><DG1.3.1>Z01.818</DG1.3.1><DG1.3.1>E78.5</ DG1.3.1><DG1 MCV 89.9 fL 81.0-101 [facility] ([facility]) FASTING~.~.~<DG1.3.1>Z01.818</DG1.3.1><DG1.3.1>Z01.818</DG1.3.1><DG1.3.1>E78.5</ DG1.3.1><DG1 MCHC 32.6 g/dL 31.0-36.0 [facility] ([facility]) FASTING~.~.~<DG1.3.1>Z01.818</DG1.3.1><DG1.3.1>Z01.818</DG1.3.1><DG1.3.1>E78.5</ DG1.3.1><DG1 RDW 13.9 % 11.5-14.5 [facility] ([facility]) FASTING~.~.~<DG1.3.1>Z01.818</DG1.3.1><DG1.3.1>Z01.818</DG1.3.1><DG1.3.1>E78.5</ DG1.3.1><DG1 Platelets 232 10^3/uL 150-450 [facility] ([facility]) FASTING~.~.~<DG1.3.1>Z01.818</DG1.3.1><DG1.3.1>Z01.818</DG1.3.1><DG1.3.1>E78.5</ DG1.3.1><DG1 MPV 10.0 fL 7.4-10.4 [facility] ([facility]) FASTING~.~.~<DG1.3.1>Z01.818</DG1.3.1><DG1.3.1>Z01.818</DG1.3.1><DG1.3.1>E78.5</ DG1.3.1><DG1 Lymph 27.9 % 25.0-40.0 [facility] ([facility]) FASTING~.~.~<DG1.3.1>Z01.818</DG1.3.1><DG1.3.1>Z01.818</DG1.3.1><DG1.3.1>E78.5</ DG1.3.1><DG1 Neut 64.3 % 37.0-80.0 [facility] ([facility]) FASTING~.~.~<DG1.3.1>Z01.818</DG1.3.1><DG1.3.1>Z01.818</DG1.3.1><DG1.3.1>E78.5</ DG1.3.1><DG1 Eos 0.5 % 0.0-7.0 [facility] ([facility]) FASTING~.~.~<DG1.3.1>Z01.818</DG1.3.1><DG1.3.1>Z01.818</DG1.3.1><DG1.3.1>E78.5</ DG1.3.1><DG1 Mckenzie 6.8 % 3.0-8.0 [facility] ([facility]) FASTING~.~.~<DG1.3.1>Z01.818</DG1.3.1><DG1.3.1>Z01.818</DG1.3.1><DG1.3.1>E78.5</ DG1.3.1><DG1 Baso 0.3 % 0.0-2.5 [facility] ([facility]) FASTING~.~.~<DG1.3.1>Z01.818</DG1.3.1><DG1.3.1>Z01.818</DG1.3.1><DG1.3.1>E78.5</ DG1.3.1><DG1 %Ig 0.2 % 0.0-0.0 Above high normal [facility] ([facility]) FASTING~.~.~<DG1.3.1>Z01.818</DG1.3.1><DG1.3.1>Z01.818</DG1.3.1><DG1.3.1>E78.5</ DG1.3.1><DG1 %NRBC 0.0 % 0.0-0.0 [facility] ([facility]) FASTING~.~.~<DG1.3.1>Z01.818</DG1.3.1><DG1.3.1>Z01.818</DG1.3.1><DG1.3.1>E78.5</ DG1.3.1><DG1 #Neut 3.78 10^3/uL 2.00-6.90 [facility] ([facility]) FASTING~.~.~<DG1.3.1>Z01.818</DG1.3.1><DG1.3.1>Z01.818</DG1.3.1><DG1.3.1>E78.5</ DG1.3.1><DG1 #Lymph 1.64 10^3/uL 0.60-3.40 [facility] ([facility] FASTING~.~.~<DG1.3.1>Z01.818</DG1.3.1><DG1.3.1>Z01.818</DG1.3.1><DG1.3.1>E78.5</ DG1.3.1><DG1 #Mckenzie 0.40 10^3/uL 0.00-0.90 [facility] ([facility] FASTING~.~.~<DG1.3.1>Z01.818</DG1.3.1><DG1.3.1>Z01.818</DG1.3.1><DG1.3.1>E78.5</ DG1.3.1><DG1 #Eos 0.03 10^3/uL 0.00-0.70 [facility] ([facility]) FASTING~.~.~<DG1.3.1>Z01.818</DG1.3.1><DG1.3.1>Z01.818</DG1.3.1><DG1.3.1>E78.5</ DG1.3.1><DG1 #Baso 0.02 10^3/uL 0.00-0.20 [facility] ([facility] FASTING~.~.~<DG1.3.1>Z01.818</DG1.3.1><DG1.3.1>Z01.818</DG1.3.1><DG1.3.1>E78.5</ DG1.3.1><DG1 #Ig 0.01 10^3/uL 0.00-0.10 [facility] ([facility] FASTING~.~.~<DG1.3.1>Z01.818</DG1.3.1><DG1.3.1>Z01.818</DG1.3.1><DG1.3.1>E78.5</ DG1.3.1><DG1 Manual Diff Laboratory test result [facility] ([facility]) FASTING~.~.~<DG1.3.1>Z01.818</DG1.3.1><DG1.3.1>Z01.818</DG1.3.1><DG1.3.1>E78.5</ DG1.3.1><DG1 #NRBC 0.00 10^3/uL 0.00-0.00 [facility] ([facility]) FASTING~.~.~<DG1.3.1>Z01.818</DG1.3.1><DG1.3.1>Z01.818</DG1.3.1><DG1.3.1>E78.5</ DG1.3.1><DG1 RBC Morph Laboratory test result [facility] ([facility]) FASTING~.~.~<DG1.3.1>Z01.818</DG1.3.1><DG1.3.1>Z01.818</DG1.3.1><DG1.3.1>E78.5</ DG1.3.1><DG1 ID Date Data Source [id number] 10/30/2020 02:08:00 PM EST [facility] Name Value Range Interpretation Code Description Data Jess rce(s) Supporting Document(s) [facility] Cholesterol [Mass/volume] in Serum or Plasma 174 MG/DL 131 - 200 [facility] Deprecated Triglyceride [Mass/volume] in Serum or Plasma 208 MG/DL 3 5 - 160 H [facility] HDL 52 MG/DL 29 - 86 [facility] al Cholesterol in LDL [Mass/volume] in Serum or Plasma by Direc t assay 95 mg/dL 65 - 175 [facility] Cholesterol.total/Cholesterol in HDL [Mass Ratio] in Serum o r Plasma 3.3 3.2 - 4.4 [facility] LDL/HDL 1.83 1.47 - 3.22 [facility] ital CVE RISK CHOL/HDL LDL/HDLMEN: 1/2 AVERAGE 3.43 1.00 AVERAGE 4.97 3.55 2X AVERAGE 9.55 6.25 3X AVERAGE 23.99 7.99WOMEN: 1/2 AVERAGE 3.27 1.47 AVERAGE 4.44 3.22 2X AVERAGE 7.05 5.03 3X AVERAGE 11.04 6.14 ID Date Data Source [id number] 10/30/2020 02:08:00 PM EST [facility] Name Value Range Interpretation Code Description Data Jess rce(s) Supporting Document(s) COMPREHENSIVE METABOLIC PANEL [facility] COMPREHENSIVE METABOLIC PANEL Sodium [Moles/volume] in Serum or Plasma 140 mEq/L 134 - 153 [facility] Potassium [Moles/volume] in Serum or Plasma 4.5 mEq/L 3.6 - 5.0 [facility] Chloride [Moles/volume] in Serum or Plasma 105 mEq/L 98 - 107 [facility] Carbon dioxide, total [Moles/volume] in Serum or Plasma 24 MEQ/L 22 - 30 [facility] Glucose [Mass/volume] in Serum or Plasma 131 MG/DL 70 - 99 H [facility] BUN 11 MG/DL 7 - 21 [facility] al Creatinine [Mass/volume] in Serum or Plasma 0.6 MG/DL 0.7 - 1.5 L [facility] BUN/CREAT 18 8 - 27 [facility] al Protein [Mass/volume] in Serum or Plasma 6.8 G/DL 6.3 - 8.2 [facility] Albumin [Mass/volume] in Serum or Plasma 4.1 G/DL 3.9 - 5.0 [facility] Globulin [Mass/volume] in Serum by calculation 2.7 GM/DL 2.4 - 3.2 [facility] A/G RATIO 1.5 0.8 - 2.0 [facility] Calcium [Mass/volume] in Serum or Plasma 9.0 MG/DL 8.4 - 10.2 [facility] Bilirubin.total [Mass/volume] in Serum or Plasma <0.7 MG/DL 0.2 - 1.3 [facility] Alkaline phosphatase [Enzymatic activity/volume] in Serum or Plasma 120 U/L 38 - 126 [facility] Aspartate aminotransferase [Enzymatic activity/volume] in Serum or Plasma 20 U/L 5 - 40 [facility] Alanine aminotransferase [Enzymatic activity/volume] in Seru m or Plasma 16 U/L 7 - 56 [facility] Anion gap 3 in Serum or Plasma 11.0 mmol/L 8.0 - 16.0 [facility] AGE 75 yrs [facility] NON-AA GFR >60 mL/min [facility] AFR AMER GFR >60 [facility] Male GFR In terprentation 20-49 yrs >60 mL/min Normal 50-59 yrs >56 mL/min Normal 60-69 yrs >49 mL/min Normal 70-79yrs >42 mL/min Normal 80 and above >35 mL/min Normal Female GFR Interpretation 20-39 yrs >60 mL/min Normal 40-49 yrs >58 mL/min Normal 50-59 yrs >51 mL/min Normal 60-69 yrs >45 mL/min Normal 70-79 yrs >39 mL/min Normal 80 and above >32 mL/min Normal ID Date Data Source [id number] 10/30/2020 01:55:00 PM [facility] Name Value Range Interpretation Code Description Data Jess rce(s) Supporting Document(s) Thyroxine (T4) free index in Serum or Plasma by calculation 1.08 NG/DL 0.93 - 1.70 [facility] ID Date Data Source [id number] 10/30/2020 01:55:00 PM [facility] Value Range Interpretation Code Description Data Jess rce(s) Supporting Document(s) Thyrotropin [Units/volume] in Serum or Plasma by Detec tion limit <= 0.05 mIU/L 1.40 uIU/mL 0.47 - 5.01 [facility] ID Date Data Source [id number] 10/30/2020 01:37:00 PM EST [facility] Name Value Range Interpretation Code Description Data Jess rce(s) Supporting Document(s) CBC W/AUTOMATED DIFF [facility] COMPLETE BLOOD COUNT Leukocytes [#/volume] in Blood by Automated count 5.9 10^3/uL 4.2 - 1 1.0 [facility] Erythrocytes [#/volume] in Blood by Automated count 4.37 10^6/uL 4. 20 - 5.40 [facility] Hemoglobin [Mass/volume] in Blood 12.8 g/dL 12.0 - 16.0 [facility] Hematocrit [Volume Fraction] of Blood by Automated count 39.3 % 3 7.0 - 47.0 [facility] Erythrocyte mean corpuscular volume [Entitic volume] by Auto mated count 89.9 fL 81.0 - 101 [facility] Erythrocyte mean corpuscular hemoglobin [Entitic mass] by Automated count 29.3 pg 27.0 - 34.0 [facility] Erythrocyte mean corpuscular hemoglobin concentration [Mass/volume] by Automated count 32.6 g/dL 31.0 - 36.0 [facility] Erythrocyte distribution width [Ratio] by Automated count 13.9 % 11.5 - 14.5 [facility] Platelets [#/volume] in Blood by Automated count 232 10^3/uL 150 - 45 0 [facility] Platelet mean volume [Entitic volume] in Blood by Automated count 10.0 fL 7.4 - 10.4 [facility] Neutrophils/100 leukocytes in Blood by Automated count 64.3 % 37. 0 - 80.0 [facility] Lymphocytes/100 leukocytes in Blood by Manual count 27.9 % 25.0 - 40.0 [facility] Monocytes/100 leukocytes in Blood by Automated count 6.8 % 3.0 - 8.0 [facility] Eosinophils/100 leukocytes in Blood by Automated count 0.5 % 0.0 - 7.0 [facility] Basophils/100 leukocytes in Blood by Automated count 0.3 % 0.0 - 2.5 [facility] %IG 0.2 % 0.0 - [facility] 0.0 % 0.0 - 0.0 [facility] al Neutrophils [#/volume] in Blood by Automated count 3.78 10^3/uL 2.00 - 6.90 [facility] Lymphocytes [#/volume] in Blood by Automated count 1.64 10^3/uL 0.60 - 3.40 [facility] Monocytes [#/volume] in Blood by Automated count 0.40 10^3/uL 0.00 - 0.90 [facility] Eosinophils [#/volume] in Blood by Automated count 0.03 10^3/uL 0.00 - 0.70 [facility] Basophils [#/volume] in Blood by Automated count 0.02 10^3/uL 0.00 - 0.20 [facility] #IG 0.01 10^3/uL 0.00 - 0.10 [facility] #NRBC 0.00 10^3/uL 0.00 - 0.00 [facility] ospital MANUAL DIFF NOT INDICATED [facility] RBC MORPH NOT INDICATED [facility] spital ID Date Data Source [id number] 09/08/2020 10:00:00 AM EST [facility] Name Value Range Interpretation Code Description Data Jess rce(s) Supporting Document(s) SARS [facility] 2 [facility] This lab was ordered by [facility] and reported by [facility]. Procedure Social History Code Duration Value Status Description Data Source(s ) Smoking 09/16/2020 12:00:00 AM EST Never Smoked A Pipe complet ed Never Smoked A Pipe [facility] ([facility]) Vital Signs ID Date Data Source UNK Name Value Range Interpretation Code Description Data Source(s) Systolic blood pressure 110 mm[Hg] 110 mm[Hg] M [facility] ([facility]) Diastolic blood pressure 68 mm[Hg] 68 mm[Hg] [facility] ([facility]) [facility] 85 /min 85 /[facility] Body temperature 97.3 [degF] 97.3 [degF] [facility] ([facility]) Respiratory rate 16 /min 16 /min [facility] Oxygen saturation in Arterial blood by Pulse oximetry 98 % 98 % [facility] ([facility]) Body weight 152.50 [lb_av] 152.50 [lb_av] [facility] T ([facility]) Body weight 69.174 kg 69.174 kg [facility] ([facility]) Body height 68 [in_i] 68 [in_i] [facility] ([facility]) 5'8" Body mass index (BMI) [Ratio] 23.2 kg/m2 23.2 k g/m2 [facility] Body surface area Derived from formula 1.82 m2 1.82 m2 [facility] ([facility]) Systolic blood pressure 104 mm[Hg] 104 mm[Hg] M [facility] ([facility]) Diastolic blood pressure 58 mm[Hg] 58 mm[Hg] [facility] ([facility]) Heart rate 74 /min 74 /min [facility] ([facility]) Body temperature 96.0 [degF] 96.0 [degF] [facility] ([facility]) Respiratory rate 18 /min 18 /min [facility] ( [facility]) Oxygen saturation in Arterial blood by Pulse oximetry 97 % 97 % [facility] ([facility]) Body weight 156.00 [lb_av] 156.00 [lb_av] [facility] ([facility]) Body weight 70.762 kg 70.762 kg [facility] ([facility]) Body height 68 [in_i] 68 [in_i] [facility] ([facility]) 5'8" Body mass index (BMI) [Ratio] 23.7 kg/m2 23.7 k g/m2 [facility] ([facility]) Body surface area Derived from formula 1.84 m2 1.84 m2 [facility] Systolic blood pressure 118 mm[Hg] 118 mm[Hg] M [facility] ([facility]) Heart rate 76 /min 76 /min [facility] ([facility]) Diastolic blood pressure 62 mm[Hg] 62 mm[Hg] [facility] ([facility]) Respiratory rate 18 /min 18 /min [facility] ( [facility]) Body temperature 97.8 [degF] 97.8 [degF] [facility] ([facility]) Oxygen saturation in Arterial blood by Pulse oximetry 98 % 98 % [facility] ([facility]) Body weight 157.00 [lb_av] 157.00 [lb_av] [facility] ([facility]) was able to step on scale today Body weight 71.[address] [facility] ([facility]) Body height 68 [in_i] 68 [in_i] [facility] ([facility]) 5'8" Body mass index (BMI) [Ratio] 23.9 kg/m2 23.9 k g/m2 [facility] ([facility]) Body surface area Derived from formula 1.[address] [facility] ([facility]) Body weight 174.00 [lb_av] 174.00 [lb_av] [facility] ([facility]) appox-- us unable to get on scale today frandy Systolic blood pressure 114 mm[Hg] 114 mm[Hg] M [facility] ([facility]) Diastolic blood pressure 64 mm[Hg] 64 mm[Hg] [facility] Heart rate 73 /min 73 /min [facility] ([facility]) Body temperature 97.7 [degF] 97.7 [degF] [facility]) Respiratory rate 16 /min 16 /min [facility] ( [facility]) Oxygen saturation in Arterial blood by Pulse oximetry 96 % 96 % [facility] ([facility]) Body weight 78.[address] [facility] ([facility]) Body height 68 [in_i] 68 [in_i] [facility] ([facility]) 5'8" Body mass index (BMI) [Ratio] 26.5 kg/m2 26.5 k g/m2 [facility] ([facility]) Body surface area Derived from formula 1.[address] [facility] ([facility]) Systolic blood pressure 130 mm[Hg] 130 mm[Hg] [facility] ([facility]) Diastolic blood pressure 58 mm[Hg] 58 mm[Hg] [facility] Body mass index (BMI) [Ratio] 26.5 kg/m2 26.5 k g/m2 [facility] ([facility]) Body surface area Derived from formula 1.93 m2 1.93 m2 [facility] ([facility]) Heart rate 80 /min 80 /min [facility] ([facility]) Body temperature 98.6 [degF] 98.6 [degF] [facility] ([facility]) Respiratory rate 16 /min 16 /min [facility] ( [facility]) Oxygen saturation in Arterial blood by Pulse oximetry 98 % 98 % [facility] ([facility]) Body weight 174.00 [lb_av] 174.00 [lb_av] [facility] ([facility]) Body weight 78.926 kg 78.926 kg [facility] ([facility]) Body height 68 [in_i] 68 [in_i] [facility] ([facility]) 5'8" Oxygen saturation in Arterial blood by Pulse oximetry 97 % 97 % [facility] ([facility]) Body height 68 [in_i] 68 [in_i] [facility] ([facility]) 5'8" Systolic blood pressure 118 mm[Hg] 118 mm[Hg] [facility] ([facility]) Diastolic blood pressure 74 mm[Hg] 74 mm[Hg] [facility] ([facility]) Heart rate 68 /min 68 /min [facility] ([facility]) Body temperature 97.6 [degF] 97.6 [degF] [facility] ([facility]) Respiratory rate 16 /min 16 /min [facility] ( [facility]) Body weight 176.00 [lb_av] 176.00 [lb_av] [facility] ([facility]) Body weight 79.834 kg 79.834 kg [facility] ([facility]) Body mass index (BMI) [Ratio] 26.8 kg/m2 26.8 k g/m2 [facility] ([facility]) Body surface area Derived from formula 1.94 m2 1.94 m2 [facility] ([facility]) Systolic blood pressure 106 mm[Hg] 106 mm[Hg] [facility] ([facility]) Diastolic blood pressure 60 mm[Hg] 60 mm[Hg] [facility] ([facility]) Heart rate 78 /min 78 /min [facility] ([facility]) Body temperature 97.3 [degF] 97.3 [degF] [facility] ([facility]) Respiratory rate 20 /min 20 /min [facility] ( [facility]) Oxygen saturation in Arterial blood by Pulse oximetry 96 % 96 % [facility] ([facility]) Body weight 171.00 [lb_av] 171.00 [lb_av] [facility] ([facility]) Body weight 77.[address] [facility] ([facility]) Body height 68 [in_i] 68 [in_i] [facility] ([facility]) 5'8" Body mass index (BMI) [Ratio] 26.0 kg/m2 26.0 k g/m2 [facility] ([facility]) Body surface area Derived from formula 1.[address] [facility] ([facility])
[2021-08-07 07:34] LABS: BASO % 0.6 % (0.0-1.0); EOS % 0.5 % (0.0-3.0); HEMATOCRIT 37.4 % (36.0-47.0); HEMOGLOBIN 12.4 g/dl (12.0-15.5); LYMPH # 1.4 10^3/uL (1.5-5.0); LYMPH % 21.6 % (24.0-44.0); MEAN CORPUSCULAR HEMOGLOBIN 29.1 pg (27.0-33.0); MEAN CORPUSCULAR HGB CONC 33.2 g/dl (32.0-36.5); MEAN CORPUSCULAR VOLUME 87.8 fl (80.0-96.0); MONO # 0.4 10^3/uL (0.0-0.8); MONO % 6.6 % (2.0-8.0); NEUTROPHILS # 4.7 10^3/uL (1.5-8.5); NEUTROPHILS % 70.4 % (36.0-66.0); PLATELET COUNT, AUTOMATED 235 10^3/uL (150-450); RED BLOOD COUNT 4.26 10^6/uL (4.00-5.40); WHITE BLOOD COUNT 6.7 10^3/uL (4.0-10.0)
[2021-08-07 07:36] LABS: VENOUS BASE EXCESS 2.5 (-2.0-2.0); VENOUS HCO3 28.4 MEQ/L (23.0-27.0); VENOUS O2 SATURATION 57.6 % (60.0-80.0); VENOUS PARTIAL PRESSURE CO2 49.7 mmHg (38.0-50.0); VENOUS PARTIAL PRESSURE O2 30.8 mmHg (30.0-50.0); VENOUS PH 7.375 UNITS (7.330-7.430); VENOUS STANDARD HCO3 25.8 MEQ/L; VENOUS TOTAL CO2 29.9 MEQ/L (24.0-28.0)
[2021-08-07] MEDS ORDERED: LEVO75TA4 PO (07:38)
[2021-08-07 07:49] LABS: BLOOD UREA NITROGEN 25 MG/DL (7-18); CALCIUM LEVEL 8.8 MG/DL (8.8-10.2); CARBON DIOXIDE LEVEL 29 MEQ/L (21-32); CHLORIDE LEVEL 105 MEQ/L (98-107); CK-MB VALUE MASS < 1.0 NG/ML (<3.6); CPK CREATINE PHOSPHOKINASE 45 U/L (26-192); CREATININE FOR GFR 0.82 MG/DL (0.55-1.30); FREE T4 1.12 NG/DL (0.76-1.46); GLOMERULAR FILTRATION RATE > 60.0 (>39); GLUCOSE, FASTING 206 MG/DL (70-100); MAGNESIUM LEVEL 2.7 MG/DL (1.8-2.4); MB/CK RELATIVE INDEX 2.22 (< OR =4); SODIUM LEVEL 138 MEQ/L (136-145); TROPONIN I < 0.02 NG/ML (< 0.10)
--- NOTE | 2021-08-07 07:56 | REPVR ---
PROCEDURE INFORMATION: Exam: CT Head Without Contrast Exam date and time: 08/07/2021 7:19 AM Age: 76 years old Clinical indication: Syncope and collapse TECHNIQUE: Imaging protocol: Computed tomography of the head without contrast. Radiation optimization: All CT scans at this facility use at least one of these dose optimization techniques: automated exposure control; mA and/or kV adjustment per patient size (includes targeted exams where dose is matched to clinical indication); or iterative reconstruction. COMPARISON: CT Head without contrast 09/08/2019 7:53 PM FINDINGS: Brain: Generalized parenchymal atrophy and evidence of microvascular ischemic disease involving periventricular and subcortical white matter bilaterally. Cerebral ventricles: No ventriculomegaly. Paranasal sinuses: Visualized sinuses are unremarkable. No fluid levels. Mastoid air cells: Visualized mastoid air cells are well aerated. Bones/joints: Unremarkable. No acute fracture. Soft tissues: Unremarkable. IMPRESSION: No acute intracranial pathology. Electronically signed by: Rodríguez Botello On 08/07/2021 07:55:31 AM
--- NOTE | 2021-08-07 08:42 | REP ---
INDICATION: Syncope/near-syncope. COMPARISON: 05/22/2019 the latest prior TECHNIQUE: Portable FINDINGS: The technique utilized in obtaining the radiograph has magnified the cardiac silhouette and accentuated the interstitial markings. The cardiomediastinal silhouette is stable. The heart is not enlarged. The interstitial markings are diffusely increased. There are no patchy opacities or pleural effusions. There is no change in the osseous structures. IMPRESSION: Portable technique as described above, however, mild interstitial edema is suspected. <Electronically signed by Gurmeet Aquino > 08/07/21 [id number]
[2021-08-07] MEDS: NS 1,000 ML IV SCH ×2 (09:00→12:51)
[2021-08-07 09:01] LABS: RSV AMPLIFICATION NEGATIVE (NEGATIVE)
[2021-08-07 09:32] LABS: NT-PRO BNP 96 PG/ML (<450)
[2021-08-07] MEDS ORDERED: PATIENT COMMENT (09:47)
[2021-08-07] MEDS ORDERED: RA M10TA PO (09:47)
[2021-08-07] MEDS ORDERED: AMLO1TAB25 PO (09:47)
[2021-08-07] MEDS ORDERED: MIRT-62 PO (09:47)
[2021-08-07] MEDS ORDERED: CEFD1CAP8 PO (09:47)
[2021-08-07] MEDS ORDERED: HOME MED LIST COMPLETE! XX SCH (09:50)
--- NOTE | 2021-08-07 11:11 | ECGEPIP ---
[facility] - ED Test Date: 2021-08-07 Pat Name: SHAYLA WEINBERG Department: Room: - Gender: Female Screen Tender: EDDIE : 1945 Requested By: Dorinda Edward Order Number: [id number] Reading MD: James Neumann Measurements Intervals Petros Rate: 74 P: 69 FL: 218 QRS: -6 QRSD: 90 T: 46 QT: 396 QTc: 439 Interpretive Statements Sinus rhythm with 1st degree AV block Minimal voltage criteria for LVH, may be normal variant ( R in aVL ) SIMILAR TO 08/01/21 Electronically Signed on 08-07-2021 11:11:31 EST by James Neumann
[2021-08-07] MEDS ORDERED: ACETAMINOPHEN TAB 650MG DOSE (2X325MG) PO PRN (11:15)
[2021-08-07] MEDS ORDERED: MOM 30ML SUSPENSION UDC PO PRN (11:15)
[2021-08-07] MEDS ORDERED: MAALOX 30 ML SUSP *UDC PO PRN (11:15)
--- OUTSIDE RECORDS SUMMARY | 2021-08-07 11:29 | CCD ---
Author Author [facility] Organization [facility] Address Unknown Phone Unavailable Care Team Providers Care Casualty Claims Supervisor Name Role Phone ZACK WOLF MD Unavailable Unavailable ZACK WOLF [...] Unavailable Unavailable ZACK WOLF MD Unavailable Unavailable ZAKC WOLF MD Unavailable Unavailable ZACK WOLF MD [...] Unavailable WOLF ZACK MD Unavailable Unavailable WOLF ZCAK MD Unavailable Unavailable WOLF ZACK MD Unavailable Unavailable WOLFZACK MD Unavailable Unavailable WOLFZACK MD Unavailable Unavailable WOLFZACK MD Unavailable Unavailable WOLFZACK MD Unavailable Unavailable WOLFZACK MD Unavailable Unavailable WOLFZACK MD Unavailable Unavailable WOLFZACK MD Unavailable Unavailable WOLFZACK JENNINGS MD Unavailable Unavailable WOLFZACK JENNINGS MD Unavailable Unavailable WOLFZACK JENNINSG MD Unavailable Unavailable WOLFZACK MD Unavailable Unavailable WOLFZACK MD Unavailable Unavailable WOLFZACK MD Unavailable Unavailable WOLFZACK MD Unavailable Unavailable WOLFZACK MD Unavailable Unavailable WOLFZACK MD Unavailable Unavailable WOLFZACK JENNINGS MD Unavailable Unavailable WOLFZACK JENNINGS MD Unavailable Unavailable WOLFZACK JENNINGS MD Unavailable Unavailable WOLFZACK MD Unavailable Unavailable WOLFZACK MD Unavailable Unavailable WOLFZACK MD Unavailable Unavailable WLOFZACK MD Unavailable Unavailable WOLFZACK MD Unavailable Unavailable [...] is protected by Article 27-F of the [facility] Public Health law. If you continue you may have access to information: Regarding HIV / AIDS; Provided by facilities licensed or operated by the [facility] Office of Mental Health; or Provided by the [facility] Office for People With Developmental Disabilities. If such information is present, then the following [facility] mandated warning applies: This information has [...] law may result in a fine or intermediate sentence or both. A general authorization for [...] MDConsultant: ZACK Blank MD 07/14/2021 11:05:00 AM [facility] 07/14/2021 11:05:00 AM [facility] Outpatient Attender: ZACK WOLF MDConsultant: ZACK Blank MD 05/12/2021 10:48:00 AM [facility] 05/12/2021 10:48:00 AM [facility] Outpatient Attender: ZACK WOLF MDConsultant: ZACK Blank MD 04/09/2021 01:01:00 PM [facility] 04/09/2021 01:01:00 PM [facility] Outpatient Attender: ZACK WOLF MDConsultant: ZACK Blank MD 12/04/2020 09:16:00 AM [facility] 12/04/2020 09:16:00 AM [facility] Outpatient Attender: ZACK WOLF MDConsultant: ZACK Blank MD 11/28/2020 11:29:00 AM [facility] 11/28/2020 12:29:00 PM [facility] Outpatient Attender: ZACK WOLF MDConsultant: ZACK Blank MD 11/27/2020 03:15:00 PM [facility] 11/27/2020 03:15:00 PM [facility] Outpatient Attender: ZACK WOLF MDConsultant: ZACK Blank MD 10/30/2020 09:21:00 AM [facility] 10/30/2020 09:21:00 AM [facility] Outpatient Attender: ZACK WOLF MDConsultant: ZACK Blank MD 10/29/2020 09:11:00 AM EST - 10/29/2020 09:11:00 AM [facility] Outpatient Attender: ZACK WOLF MDConsultant: ZACK Blank MD 10/10/2020 10:44:00 AM EST - 10/10/2020 10:44:00 AM [facility] Outpatient Attender: JESSE COSTA DPM PCConsultant: LOBO WOLF MD 09/16/2020 10:53:00 AM EST - 09/16/2020 10:53:00 AM [facility] Outpatient Attender: JESSE COSTA DPM PCConsultant: LOBO WOLF MD 07/25/2020 09:30:00 AM EDT - 07/25/2020 09:30:00 AM EDT [facility] Immunizations Vaccine Date Status Description Data Source(s) COVID-19 VACCINE Moderna 01/03/2021 12:00:00 AM EDT completed [facility] Vaccine Series Complete: YESThis Data wa s Submitted to [facility] Via [employer]. COVID-19 VACCINE Moderna 12/06/2020 12:00:00 AM EST completed [facility] Vaccine Series Complete: NOThis Data was Submitted to [facility] Via [employer]. New in 2011. IIV4 10/10/2020 10:28:00 AM EST completed [facility] ([facility]) Medications Medication Brand Name Start Date Product Form Dose Route Admi nistrative Instructions Pharmacy Instructions Status Indications Reaction Description Data Source(s) 300 mg 08/02/2021 12:00:00 AM EDT capsule 14 TAKE ONE CAPSULE BY MOUTH TWICE A DAY TAKE ONE CAPSULE BY MOUTH TWICE A DAY SOLD: 08/02/2021 [facility] Furosemide 20 MG Oral Tablet Furosemide 11/29/2020 12:00:00 AM EST active [facility] ([facility]) BD [facility] Gloves Large 11/11/2020 12:00:00 AM EST active [facility] ([facility]) buspirone hydrochloride 5 MG Oral Tablet Buspirone HCL 10/16/2020 12:00:00 AM EST active [facility] buspirone hydrochloride 10 MG Oral Tablet Buspirone HCL 10/10/2020 12:00:00 AM EST completed [facility] ([facility]) Hospital Bed 08/12/2020 12:00:00 AM EST activ e [facility] ([facility]) Melatonin 10 MG Oral Tablet Melatonin 06/10/2020 12:00:00 AM EDT active [facility] ([facility]) Melatonin 5 MG Oral Capsule Melatonin 02/13/2020 12:00:00 AM EDT ORAL completed [facility] ([facility]) Insurance Providers Payer name Policy type / Coverage type Policy ID Covered libertarian ID Covered libertarian's relationship to shepherd Policy Shepherd Plan Information Medicare Natl Govt Serv Medicare Primary [id number] Self [id number] AETNA MEDICARE [id number] SP [id number] SHZ AETNA MEDICARE [id number] SP [id number] SHZ AETNA MEDICARE [id number] SP [id number] SHZ AETNA MEDICARE [id number] SP [id number] SHZ TODAYS OPTIONS [id number] SP [id number] [place] PROGRESSIVE [place] U AMER PROG TODAYS OPTIONS [id number] Self [id number] Wellcare/Todays Optmcr Commercial [id number] Self [id number] AETNA MEDICARE -O/P CO [id number] 18 [id number] Aetna Medicare Commercial [id number] Self [id number] AETNA MEDICARE CO [id number] SHZ AETNA MEDICARE COMPLETE G [id number] Self [id number] AETNA MCR - PHYSICIAN CO [id number] 18 [id number] VNA MEDICAID MANAGED I [id number] Self [id number] MEDICAID [id number] Self [id number] VNA MEDICAID MANAGED I [id number] Self [id number] Todays Option Medicare Commercial [id number] Self [id number] TODAYS OPTIONS/SURINAMESE O [id number] O [id number] MEDICARE C [id number] S [id number] A Todays Option Medicare Commercial [id number] Self [id number] Today's Options/Amer Prog Commercial [id number] Self [id number] Today's Options/Amer Prog Commercial [id number] Self [id number] Todays Option Medicare Commercial [id number] Self [id number] Todays Option Medicare Commercial [id number] Self [id number] Todays Option Medicare Commercial [id number] Self Todays Options [id number] [facility] P [id number] S [id number] MEDICARE COMPLETE [id number] SP [id number] MEDICARE COMPLETE-UHC P [id number] S [id number] MEDICARE COMPLETE-UHC S UNAVAILABLE [id number] S UNAVAILABLE [employer] P [id number] S [id number] SECURE HORIZONS UNHC MEDICARE-O/P [id number] 18 [id number] TODAYS OPTIONS [id number] SP [id number] AETNA MEDICARE -O/P [id number] MEDICAID -O/P [id number] 18 [id number] AETNA [facility] - PHYSICIAN [id number] MEDICAID [id number] SP [id number] AETNA MEDICARE O [id number] S [id number] SHZ MEDICAID M [id number] S [id number] AETNA MEDICARE O [id number] S [id number] SHZ MEDICAID [id number] [place] Med[place] Part [place] [id number] Self [id number] Aetna Ppo/Pos/Nap/MC Commercial [id number] Self [id number] [place] Med[place] Part [place] [id number] Self [id number] Aetna Ppo/Pos/Nap/MC Medigap Part B [id number] Self [id number] Medicare Natl Gov't Servi Medicare Primary [id number] Self [id number] Todays Option Medicare Commercial [id number] Self [id number] Todays Option Medicare Commercial [id number] Self [id number] Todays Option Medicare Commercial [id number] Self [id number] Problems, Conditions, and Diagnoses Code Display Name Description Problem Type Effective Dates Data Source(s) R634 Abnormal weight loss Abnormal weight loss Diagnosis 04/09/2021 01:01:00 PM EDT [facility] G4700 Insomnia, unspecified Insomnia, unspecified Diagnosis 04/09/2021 01:01:00 PM EDT [facility] I10 Essential (primary) hypertension Essential (primary) h ypertension Diagnosis 04/09/2021 01:01:00 PM EDT [facility] Z0001 Encounter for general adult medical exam ination with abnormal findings Encounter for general adult medical examination with abnormal findings Diagnosis 04/09/2021 01:01:00 PM EDT [facility] G309 Alzheimer's disease, unspecified Alzheimer's dis ease, unspecified Diagnosis 12/04/2020 09:16:00 AM [facility] F419 Anxiety disorder, unspecified Anxiety disorder, unspec ified Diagnosis 12/04/2020 09:16:00 AM [facility] R2242 Localized swelling, mass and lump, left lower limb Localized swelling, mass and lump, left lower limb Diagnosis 11/28/2020 11:29:[address] [facility] R2241 Localized swelling, mass and lump, right lower limb Localized swelling, mass and lump, right lower limb Diagnosis 11/28/2020 11:29:00 AM [facility] R609 Edema, unspecified Edema, unspecified Diagnosis 03:15:00 PM [facility] X41764 Encounter for other preprocedural examin ation Encounter for other preprocedural examination Diagnosis 10/30/2020 09:21:00 AM [facility] I739 Peripheral vascular disease, unspecified Peripheral vascular disease, unspecified Diagnosis 10/30/2020 09:21:00 AM [facility] F0390 Unspecified dementia without behavioral disturbance Unspecified dementia without behavioral disturbance Diagnosis 10/29/2020 09:11:[address] [facility] Z23 Encounter for immunization Encounter for immunization Diagnosis 10/10/2020 10:44:00 AM [facility] F339 Major depressive disorder, recurrent, un specified Major depressive disorder, recurrent, unspecified Diagnosis 10/10/2020 10:44:00 AM [facility] L84 Corns and callosities Corns and callosities Diagnosis 09/16/2020 10:53:00 AM [facility] L603 Nail dystrophy Nail dystrophy Diagnosis 09/16/2020 10:53: 00 AM [facility] B351 Tinea unguium Tinea unguium Diagnosis 09/16/2020 10:53:00 AM EST [facility] E1151 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 gangrene Type 2 diabetes mellitus with diabetic p eripheral angiopathy without gangrene Diagnosis 09/16/2020 10:53:00 AM EST [facility] S46690 Pain in right foot Pain in right foot Diagnosis 09:30:00 AM EDT [facility] Z42561 Pressure ulcer of other site, stage 1 Pr essure ulcer of other site, stage 1 Diagnosis 07/25/2020 09:30:00 AM EDT [facility] G47.00 Insomnia Insomnia Problem 04/09/2021 12:00:00 AM ED T [facility] ([facility]) R63.4 Weight decreased Weight decreased Problem 04/09/2021 12 :00:00 AM EDT [facility] ([facility]) L89.891 Pressure ulcer of other site, stage 1 Pr essure ulcer of other site, stage 1 Problem 07/25/2020 12:00:00 AM EDT [facility] ([facility]) Surgeries/Procedures Procedure Description Date Indications Data Source(s) OFFICE OUTPATIENT VISIT 15 MINUTES 05/12/2021 12:00:00 AM EDT [facility] ([facility]) PERIODIC PREVENTIVE MED EST PATIENT 65YRS&> 04/09/2021 12:00:00 AM EDT [facility] ([facility]) OFFICE OUTPATIENT VISIT 15 MINUTES 12/04/2020 12:00:00 AM EST [facility] ([facility]) OFFICE OUTPATIENT VISIT 15 MINUTES 11/27/2020 12:00:00 AM EST [facility] ([facility]) OFFICE OUTPATIENT VISIT 15 MINUTES 10/29/2020 12:00:00 AM EST [facility] ([facility]) Pare Hyperkeratotic Lesion, 2-4 09/16/2020 12:00:00 AM EST [facility] ([facility]) Debridement Nails Any Method 1-5 09/16/2020 12:00:00 A M EST [facility] ([facility]) Pare Hyperkeratotic Lesion, 2-4 07/25/2020 12:00:00 AM EDT [facility] ([facility]) Debridement Nails Any Method 1-5 07/25/2020 12:00:00 A M EDT [facility] ([facility]) Results ID Date Data Source [id number] 12/04/2020 10:03:00 AM EST [facility] ([facility]) Name Value Range Interpretation Code Description Data Jess rce(s) Supporting Document(s) Natriuretic peptide.B prohormone N-Terminal [Mass/volu me] in Serum or Plasma Laboratory test result [facility] ([facility]) Thyrotropin [Units/volume] in Serum or Plasma Laboratory test result [facility] ([facility]) Thyroxine (T4) free [Mass/volume] in Serum or Plasma Laboratory emelyn t result [facility] ([facility]) ID Date Data Source [id number] 12/04/2020 10:03:00 AM EST [facility] ([facility]) Name Value Range Interpretation Code Description Data Jess rce(s) Supporting Document(s) Cholesterol [Mass/volume] in Serum or Plasma Laboratory test result [facility] ([facility]) Cholesterol.total/Cholesterol in HDL [Molar ratio] in Serum or Plasma Laboratory test result [facility] ([facility]) High Density Lipoprotein Laboratory test result [facility] ([facility]) Cholesterol in LDL/Cholesterol in HDL [Mass Ratio] in Serum or Plasma Laboratory test result [facility] ([facility]) Cholesterol in LDL [Mass/volume] in Serum or Plasma Laboratory test result [facility] ([facility]) Triglyceride [Mass/volume] in Serum or Plasma Laboratory test result [facility] ([facility]) ID Date Data Source [id number] 12/04/2020 10:03:00 AM EST [facility] ([facility]) Name Value Range Interpretation Code Description Data Jess rce(s) Supporting Document(s) Alanine aminotransferase [Enzymatic activity/volume] i n Serum or Plasma Laboratory test result [facility] ([facility]) Albumin [Mass/volume] in Serum or Plasma Laboratory test result [facility] ([facility]) Calcium [Mass/volume] in Serum or Plasma Laboratory test result [facility] ([facility]) Carbon dioxide, total [Moles/volume] in Serum or Plasma Labo ratory test result [facility] ([facility]) Chloride [Moles/volume] in Serum or Plasma Laboratory test result [facility] ([facility]) Creatinine [Mass/volume] in Serum or Plasma Laboratory test result [facility] ([facility]) Glucose [Mass/volume] in Serum or Plasma Laboratory test result [facility] ([facility]) Alkaline phosphatase [Enzymatic activity/volume] in Se rum or Plasma Laboratory test result [facility] ([facility]) Potassium [Moles/volume] in Serum or Plasma Laboratory test result [facility] ([facility]) Protein [Mass/volume] in Serum or Plasma Laboratory test result [facility] ([facility]) Urea nitrogen [Mass/volume] in Serum or Plasma Laboratory test result [facility] ([facility]) Sodium [Moles/volume] in Serum or Plasma Laboratory test result [facility] ([facility]) Aspartate aminotransferase [Enzymatic activity/volume] in Serum or Plasma Laboratory test result [facility] ([facility]) ID Date Data Source [id number] 12/04/2020 10:03:00 AM EST [facility] ([facility]) Name Value Range Interpretation Code Description Data Jess rce(s) Supporting Document(s) Hemoglobin A1c/Hemoglobin.total in Blood Laboratory test result [facility] ([facility]) ID Date Data Source [id number] 12/04/2020 10:03:00 AM EST [facility] ([facility]) Name Value Range Interpretation Code Description Data Jess rce(s) Supporting Document(s) Z#Other Observations Laboratory test result [facility] ([facility]) ID Date Data Source [id number] 12/04/2020 10:03:00 AM EST [facility] ([facility]) Name Value Range Interpretation Code Description Data Jess rce(s) Supporting Document(s) Misc Test #5 Laboratory test result [facility] ([facility]) ID Date Data Source [id number] 12/02/2020 03:35:00 PM EST [facility] [address] [place] [address] PHONE: [phone] FAX: [phone] Name .................. : SULTANA Blank Acct Number.................. : [id number] ROOM. ................. : MR Number ................... : [id number] Stay type ............. : O/P Discharge Date......... ... : 11/28/20 Admit Date .... ..... : 11/28/20 Admit Phys .................... : WOLF HARD Date of ....... : 1945 Family Phys ................... : Regenerate HARD Phone .................. : [phone] Age ................................ : 75 Film# .................. .:[id number] Sex ................................. : F Unsigned transcriptions are preliminary reports and do not represent a medical or legal document DOPPLER VENOUS BILAT LEG 23062 COMPLETE:11/28/20 12:05 KNB 7796 (REASON FOR PROCESS: SWELLING, MASS, LUMP BILATERAL [...] MD , 12/02/20 15:35, HECTOR Transcribe Initials: DZ , Transcribe Date: 11/28/20 19:25, Dictation Date: Copy for: [facility] REC Page 1 of 1 Name Value Range Interpretation Code Description Data Jess rce(s) Supporting Document(s) ID Date Data Source [id number] 11/29/2020 03:28:00 PM EST [facility] [address] [place] [address] PHONE: [phone] FAX: [phone] Name .................. : SULTANA Blank Acct Number.................. : [id number] ROOM. ................. : Number ................... : [id number] Stay type ............. : O/P Discharge Date......... ... : 11/28/20 Admit Date .... ..... : 11/28/20 Admit Phys .................... : WOLF HARD Date of ....... : 1945 Family Phys ................... : Regenerate HARD Phone .................. : [phone] Age ................................ : 75 Film# .................. .:[id number] Sex ................................. : F Unsigned transcriptions are preliminary reports and do not represent a medical or legal document FOOT COMP - BILATERAL 23782 COMPLETE:11/28/20 13:15 KBO 5556 (REASON FOR PROCESS: [...] Date: 11/29/20 01:02, Dictation Date: Copy for: [address] [place] [address] Page 1 of 1 Name Value Range Interpretation Code Description Data Jess rce(s) Supporting Document(s) ID Date Data Source [id number] 11/27/2020 04:05:00 PM EST [facility] ([facility]) Name Value Range Interpretation Code Description Data Jess rce(s) Supporting Document(s) Comprehensive Metabo Laboratory test result [facility] ([facility]) Is patient fasting? N Sodium 139 meq/L 134-153 [facility] ([facility]) Is patient fasting? N Potassium 4.6 meq/L 3.6-5.0 [facility] ([facility]) Is patient fasting? N Chloride 102 meq/L 98-107 [facility] ([facility]) Is patient fasting? N Co2 23 meq/L 22-30 [facility] ([facility]) Is patient fasting? N Glucose 151 mg/dL 70-99 Above high normal [facility] ([facility]) Is patient fasting? N BUN 17 mg/dL 7-21 [facility] ([facility]) Is patient fasting? N Creatinine 0.6 mg/dL 0.7-1.5 Below low normal [facility] ( [facility]) Is patient fasting? N Albumin 4.3 g/dL 3.9-5.0 [facility] ([facility]) Is patient fasting? N BUN/Creat 28 8-27 Above high normal [facility] ([facility]) Is patient fasting? N Total Protein 6.6 g/dL 6.3-8.2 [facility] ([facility]) Is patient fasting? N Globulin 2.3 GM/DL 2.4-3.2 Below low normal [facility] ( [facility]) Is patient fasting? N A/G Ratio 1.9 0.8-2.0 [facility] ([facility]) Is patient fasting? N Calcium 9.5 mg/dL 8.4-10.2 [facility] ([facility]) Is patient fasting? N Total Bili Laboratory test result 0.2-1.3 ME [facility] ([facility]) Is patient fasting? N Sgot/Ast 17 U/L 5-40 [facility] ([facility]) Is patient fasting? N Alkaline Phos 122 U/L 38-126 [facility] ([facility]) Is patient fasting? N Anion Gap 14.0 mmol/L 8.0-16.0 [facility] ([facility]) Is patient fasting? N SGPT/Alt 15 U/L 7-56 [facility] ([facility]) Is patient fasting? N Age 75 yrs [facility] ([facility]) Is patient fasting? N Non-Aa GFR Laboratory test result [facility] ([facility]) Is patient fasting? N Afr Amer GFR Laboratory test result [facility] ([facility]) Is patient fasting? N ID Date Data Source [id number] 11/27/2020 04:05:00 PM EST [facility] ([facility]) Name Value Range Interpretation Code Description Data Jess rce(s) Supporting Document(s) Natriuretic peptide.B prohormone N-Terminal [Mass/volu me] in Serum or Plasma 185 pg/mL 0-125 Above high normal [facility] ([facility]) Is patient fasting? N Fibrin D-dimer [Presence] in Platelet poor plasma 1.86 ug/mL 0.27-0.50 Above high normal [facility] ([facility]) Is patient fasting? N ID Date Data Source [id number] 11/27/2020 03:59:00 PM EST [facility] ([facility]) Name Value Range Interpretation Code Description Data Jess rce(s) Supporting Document(s) Foot Complete-3 Or More VW RT Laboratory test result [facility] ([facility]) US Doppler Uni Venous Leg RT Laboratory test result [facility] ([facility]) ID Date Data Source [id number] 11/27/2020 10:22:00 PM EST [facility] Name Value Range Interpretation Code Description Data Jess rce(s) Supporting Document(s) COMPREHENSIVE METABOLIC PANEL [facility] COMPREHENSIVE METABOLIC PANEL Sodium [Moles/volume] in Serum or Plasma 139 mEq/L 134 - 153 [facility] Potassium [Moles/volume] in Serum or Plasma 4.6 mEq/L 3.6 - 5.0 [facility] Chloride [Moles/volume] in Serum or Plasma 102 mEq/L 98 - 107 [facility] Carbon dioxide, total [Moles/volume] in Serum or Plasma 23 MEQ/L 22 - 30 [facility] Glucose [Mass/volume] in Serum or Plasma 151 MG/DL 70 - 99 H [facility] BUN 17 MG/DL 7 - 21 [facility] Creatinine [Mass/volume] in Serum or Plasma 0.6 MG/DL 0.7 - 1.5 L [facility] BUN/CREAT 28 8 - 27 H [facility] Protein [Mass/volume] in Serum or Plasma 6.6 G/DL 6.3 - 8.2 [facility] Albumin [Mass/volume] in Serum or Plasma 4.3 G/DL 3.9 - 5.0 [facility] Globulin [Mass/volume] in Serum by calculation 2.3 GM/DL 2.4 - 3.2 L [facility] A/G RATIO 1.9 0.8 - 2.0 [facility] Calcium [Mass/volume] in Serum or Plasma 9.5 MG/DL 8.4 - 10.2 [facility] Bilirubin.total [Mass/volume] in Serum or Plasma <0.7 MG/DL 0.2 - 1.3 [facility] Alkaline phosphatase [Enzymatic activity/volume] in Serum or Plasma 122 U/L 38 - 126 [facility] Aspartate aminotransferase [Enzymatic activity/volume] in Serum or Plasma 17 U/L 5 - 40 [facility] Alanine aminotransferase [Enzymatic activity/volume] in Seru m or Plasma 15 U/L 7 - 56 [facility] Anion gap 3 in Serum or Plasma 14.0 mmol/L 8.0 - 16.0 [facility] 75 [facility] >60 mL/min [facility] AFR AMER GFR >60 [facility] Male GFR In terprentation 20-49 [...] >32 mL/min Normal ID Date Data Source [id number] 11/27/2020 09:08:00 PM EST [facility] Name Value Range Interpretation Code Description Data Jess rce(s) Supporting Document(s) Fibrin D-dimer FEU [Mass/volume] in Platelet poor plasma 1.86 ug /mL 0.27 - 0.50 [facility] ID Date Data Source [id number] 11/27/2020 08:42:00 PM EST [facility] Name Value Range Interpretation Code Description Data Jess rce(s) Supporting Document(s) BNP 185 PG/ML 0 - 125 [facility] al ID Date Data Source [id number] 11/03/2020 08:30:00 AM EST [facility] Name Value Range Interpretation Code Description Data Jess rce(s) Supporting Document(s) SARS coronavirus 2 RNA Not Detected [facility] [place] This lab was ordered by [facility] and reported by [facility]. ID Date Data Source [id number] 10/30/2020 09:19:00 AM EST [facility] ([facility]) Name Value Range Interpretation Code Description Data Jess rce(s) Supporting Document(s) Thyrotropin [Units/volume] in Serum or Plasma 1.40 uIU/mL 0.47-5.01 [facility] ([facility]) FASTING~.~.~<DG1.3.1>Z01.818</DG1.3.1><DG1.3.1>Z01.818</DG1.3.1><DG1.3.1>E78.5</ DG1.3.1><DG1 Thyroxine (T4) free [Mass/volume] in Serum or Plasma 1.08 ng/dL 0.93- 1.70 [facility] ([facility]) FASTING~.~.~<DG1.3.1>Z01.818</DG1.3.1><DG1.3.1>Z01.818</DG1.3.1><DG1.3.1>E78.5</ DG1.3.1><DG1 ID Date Data Source [id number] 10/30/2020 09:19:00 AM EST [facility] ([facility]) Name Value Range Interpretation Code Description Data Jess rce(s) Supporting Document(s) Cve Panel Laboratory test result [facility] ([facility]) FASTING~.~.~<DG1.3.1>Z01.818</DG1.3.1><DG1.3.1>Z01.818</DG1.3.1><DG1.3.1>E78.5</ DG1.3.1><DG1 Cholesterol 174 mg/dL 131-200 [facility] ([facility]) FASTING~.~.~<DG1.3.1>Z01.818</DG1.3.1><DG1.3.1>Z01.818</DG1.3.1><DG1.3.1>E78.5</ DG1.3.1><DG1 Triglycerides 208 mg/dL 35-160 Above high normal [facility] ([facility]) FASTING~.~.~<DG1.3.1>Z01.818</DG1.3.1><DG1.3.1>Z01.818</DG1.3.1><DG1.3.1>E78.5</ DG1.3.1><DG1 LDL 95 mg/dL 65-175 [facility] ([facility]) FASTING~.~.~<DG1.3.1>Z01.818</DG1.3.1><DG1.3.1>Z01.818</DG1.3.1><DG1.3.1>E78.5</ DG1.3.1><DG1 HDL 52 mg/dL 29-86 [facility] ([facility]) FASTING~.~.~<DG1.3.1>Z01.818</DG1.3.1><DG1.3.1>Z01.818</DG1.3.1><DG1.3.1>E78.5</ DG1.3.1><DG1 Risk Factor 3.3 3.2-4.4 [facility] ([facility]) FASTING~.~.~<DG1.3.1>Z01.818</DG1.3.1><DG1.3.1>Z01.818</DG1.3.1><DG1.3.1>E78.5</ DG1.3.1><DG1 LDL/HDL 1.83 1.47-3.22 [facility] ([facility]) FASTING~.~.~<DG1.3.1>Z01.818</DG1.3.1><DG1.3.1>Z01.818</DG1.3.1><DG1.3.1>E78.5</ DG1.3.1><DG1 ID Date Data Source [id number] 10/30/2020 09:19:00 AM EST [facility] ([facility]) Name Value Range Interpretation Code Description Data Jess rce(s) Supporting Document(s) [facility] [employer] Laboratory test result [facility] ([facility]) FASTING~.~.~<DG1.3.1>Z01.818</DG1.3.1><DG1.3.1>Z01.818</DG1.3.1><DG1.3.1>E78.5</ DG1.3.1><DG1 Potassium 4.5 meq/L 3.6-5.0 [facility] ([facility]) FASTING~.~.~<DG1.3.1>Z01.818</DG1.3.1><DG1.3.1>Z01.818</DG1.3.1><DG1.3.1>E78.5</ DG1.3.1><DG1 Sodium 140 meq/L 134-153 [facility] ([facility]) FASTING~.~.~<DG1.3.1>Z01.818</DG1.3.1><DG1.3.1>Z01.818</DG1.3.1><DG1.3.1>E78.5</ DG1.3.1><DG1 Chloride 105 meq/L 98-107 [facility] ([facility]) FASTING~.~.~<DG1.3.1>Z01.818</DG1.3.1><DG1.3.1>Z01.818</DG1.3.1><DG1.3.1>E78.5</ DG1.3.1><DG1 Co2 24 meq/L 22-30 [facility] ([facility]) FASTING~.~.~<DG1.3.1>Z01.818</DG1.3.1><DG1.3.1>Z01.818</DG1.3.1><DG1.3.1>E78.5</ DG1.3.1><DG1 Glucose 131 mg/dL 70-99 Above high normal [facility] ([facility]) FASTING~.~.~<DG1.3.1>Z01.818</DG1.3.1><DG1.3.1>Z01.818</DG1.3.1><DG1.3.1>E78.5</ DG1.3.1><DG1 BUN 11 mg/dL 7-21 [facility] ([facility]) FASTING~.~.~<DG1.3.1>Z01.818</DG1.3.1><DG1.3.1>Z01.818</DG1.3.1><DG1.3.1>E78.5</ DG1.3.1><DG1 Creatinine 0.6 mg/dL 0.7-1.5 Below low normal [facility] ( [facility]) FASTING~.~.~<DG1.3.1>Z01.818</DG1.3.1><DG1.3.1>Z01.818</DG1.3.1><DG1.3.1>E78.5</ DG1.3.1><DG1 BUN/Creat 18 8-27 [facility] ([facility]) FASTING~.~.~<DG1.3.1>Z01.818</DG1.3.1><DG1.3.1>Z01.818</DG1.3.1><DG1.3.1>E78.5</ DG1.3.1><DG1 Total Protein 6.8 g/dL 6.3-8.2 [facility] ([facility]) FASTING~.~.~<DG1.3.1>Z01.818</DG1.3.1><DG1.3.1>Z01.818</DG1.3.1><DG1.3.1>E78.5</ DG1.3.1><DG1 Albumin 4.1 g/dL 3.9-5.0 [facility] ([facility]) FASTING~.~.~<DG1.3.1>Z01.818</DG1.3.1><DG1.3.1>Z01.818</DG1.3.1><DG1.3.1>E78.5</ DG1.3.1><DG1 Globulin 2.7 GM/DL 2.4-3.2 [facility] ([facility]) FASTING~.~.~<DG1.3.1>Z01.818</DG1.3.1><DG1.3.1>Z01.818</DG1.3.1><DG1.3.1>E78.5</ DG1.3.1><DG1 A/G Ratio 1.5 0.8-2.0 [facility] ([facility]) FASTING~.~.~<DG1.3.1>Z01.818</DG1.3.1><DG1.3.1>Z01.818</DG1.3.1><DG1.3.1>E78.5</ DG1.3.1><DG1 Calcium 9.0 mg/dL 8.4-10.2 [facility] ([facility]) FASTING~.~.~<DG1.3.1>Z01.818</DG1.3.1><DG1.3.1>Z01.818</DG1.3.1><DG1.3.1>E78.5</ DG1.3.1><DG1 Total Bili Laboratory test result 0.2-1.3 [facility] ([facility]) FASTING~.~.~<DG1.3.1>Z01.818</DG1.3.1><DG1.3.1>Z01.818</DG1.3.1><DG1.3.1>E78.5</ DG1.3.1><DG1 Alkaline Phos 120 U/L 38-126 [facility] ([facility]) FASTING~.~.~<DG1.3.1>Z01.818</DG1.3.1><DG1.3.1>Z01.818</DG1.3.1><DG1.3.1>E78.5</ DG1.3.1><DG1 Sgot/Ast 20 U/L 5-40 [facility] ([facility]) FASTING~.~.~<DG1.3.1>Z01.818</DG1.3.1><DG1.3.1>Z01.818</DG1.3.1><DG1.3.1>E78.5</ DG1.3.1><DG1 SGPT/Alt 16 U/L 7-56 [facility] ([facility]) FASTING~.~.~<DG1.3.1>Z01.818</DG1.3.1><DG1.3.1>Z01.818</DG1.3.1><DG1.3.1>E78.5</ DG1.3.1><DG1 Anion Gap 11.0 mmol/L 8.0-16.0 [facility] ([facility]) FASTING~.~.~<DG1.3.1>Z01.818</DG1.3.1><DG1.3.1>Z01.818</DG1.3.1><DG1.3.1>E78.5</ DG1.3.1><DG1 Age 75 yrs [facility] ([facility]) FASTING~.~.~<DG1.3.1>Z01.818</DG1.3.1><DG1.3.1>Z01.818</DG1.3.1><DG1.3.1>E78.5</ DG1.3.1><DG1 Non-Aa GFR Laboratory test result [facility] ([facility]) FASTING~.~.~<DG1.3.1>Z01.818</DG1.3.1><DG1.3.1>Z01.818</DG1.3.1><DG1.3.1>E78.5</ DG1.3.1><DG1 Afr Amer GFR Laboratory test result [facility] ([facility]) FASTING~.~.~<DG1.3.1>Z01.818</DG1.3.1><DG1.3.1>Z01.818</DG1.3.1><DG1.3.1>E78.5</ DG1.3.1><DG1 ID Date Data Source [id number] 10/30/2020 09:19:00 AM EST [facility] ([facility]) Name Value Range Interpretation Code Description Data Jess rce(s) Supporting Document(s) CBC W/Automated Diff Laboratory test result [facility] ([facility]) FASTING~.~.~<DG1.3.1>Z01.818</DG1.3.1><DG1.3.1>Z01.818</DG1.3.1><DG1.3.1>E78.5</ DG1.3.1><DG1 WBC 5.9 10^3/uL 4.2-11.0 [facility] ([facility]) FASTING~.~.~<DG1.3.1>Z01.818</DG1.3.1><DG1.3.1>Z01.818</DG1.3.1><DG1.3.1>E78.5</ DG1.3.1><DG1 RBC 4.37 10^6/uL 4.20-5.40 [facility] FASTING~.~.~<DG1.3.1>Z01.818</DG1.3.1><DG1.3.1>Z01.818</DG1.3.1><DG1.3.1>E78.5</ DG1.3.1><DG1 Hematocrit 39.3 % 37.0-47.0 [facility] ([facility]) FASTING~.~.~<DG1.3.1>Z01.818</DG1.3.1><DG1.3.1>Z01.818</DG1.3.1><DG1.3.1>E78.5</ DG1.3.1><DG1 Hemoglobin 12.8 g/dL 12.0-16.0 [facility] ([facility]) FASTING~.~.~<DG1.3.1>Z01.818</DG1.3.1><DG1.3.1>Z01.818</DG1.3.1><DG1.3.1>E78.5</ DG1.3.1><DG1 MCH 29.3 pg 27.0-34.0 [facility] ([facility]) FASTING~.~.~<DG1.3.1>Z01.818</DG1.3.1><DG1.3.1>Z01.818</DG1.3.1><DG1.3.1>E78.5</ DG1.3.1><DG1 MCV 89.9 fL 81.0-101 [facility] ([facility]) FASTING~.~.~<DG1.3.1>Z01.818</DG1.3.1><DG1.3.1>Z01.818</DG1.3.1><DG1.3.1>E78.5</ DG1.3.1><DG1 MCHC 32.6 g/dL 31.0-36.0 [facility] ([facility]) FASTING~.~.~<DG1.3.1>Z01.818</DG1.3.1><DG1.3.1>Z01.818</DG1.3.1><DG1.3.1>E78.5</ DG1.3.1><DG1 RDW 13.9 % 11.5-14.5 [facility] ([facility]) FASTING~.~.~<DG1.3.1>Z01.818</DG1.3.1><DG1.3.1>Z01.818</DG1.3.1><DG1.3.1>E78.5</ DG1.3.1><DG1 Platelets 232 10^3/uL 150-450 [facility] ([facility]) FASTING~.~.~<DG1.3.1>Z01.818</DG1.3.1><DG1.3.1>Z01.818</DG1.3.1><DG1.3.1>E78.5</ DG1.3.1><DG1 MPV 10.0 fL 7.4-10.4 [facility] ([facility]) FASTING~.~.~<DG1.3.1>Z01.818</DG1.3.1><DG1.3.1>Z01.818</DG1.3.1><DG1.3.1>E78.5</ DG1.3.1><DG1 Lymph 27.9 % 25.0-40.0 [facility] ([facility]) FASTING~.~.~<DG1.3.1>Z01.818</DG1.3.1><DG1.3.1>Z01.818</DG1.3.1><DG1.3.1>E78.5</ DG1.3.1><DG1 Neut 64.3 % 37.0-80.0 [facility] ([facility]) FASTING~.~.~<DG1.3.1>Z01.818</DG1.3.1><DG1.3.1>Z01.818</DG1.3.1><DG1.3.1>E78.5</ DG1.3.1><DG1 Eos 0.5 % 0.0-7.0 [facility] ([facility]) FASTING~.~.~<DG1.3.1>Z01.818</DG1.3.1><DG1.3.1>Z01.818</DG1.3.1><DG1.3.1>E78.5</ DG1.3.1><DG1 [place] 6.8 % 3.0-8.0 [facility] ([facility]) FASTING~.~.~<DG1.3.1>Z01.818</DG1.3.1><DG1.3.1>Z01.818</DG1.3.1><DG1.3.1>E78.5</ DG1.3.1><DG1 Baso 0.3 % 0.0-2.5 [facility] ([facility]) FASTING~.~.~<DG1.3.1>Z01.818</DG1.3.1><DG1.3.1>Z01.818</DG1.3.1><DG1.3.1>E78.5</ DG1.3.1><DG1 %Ig 0.2 % 0.0-0.0 Above high normal [facility] ([facility]) FASTING~.~.~<DG1.3.1>Z01.818</DG1.3.1><DG1.3.1>Z01.818</DG1.3.1><DG1.3.1>E78.5</ DG1.3.1><DG1 %NRBC 0.0 % 0.0-0.0 [facility] ([facility]) FASTING~.~.~<DG1.3.1>Z01.818</DG1.3.1><DG1.3.1>Z01.818</DG1.3.1><DG1.3.1>E78.5</ DG1.3.1><DG1 #Neut 3.78 10^3/uL 2.00-6.90 [facility] ([facility]) FASTING~.~.~<DG1.3.1>Z01.818</DG1.3.1><DG1.3.1>Z01.818</DG1.3.1><DG1.3.1>E78.5</ DG1.3.1><DG1 #Lymph 1.64 10^3/uL 0.60-3.40 [facility] ([facility]) FASTING~.~.~<DG1.3.1>Z01.818</DG1.3.1><DG1.3.1>Z01.818</DG1.3.1><DG1.3.1>E78.5</ DG1.3.1><DG1 #[place] 0.40 10^3/uL 0.00-0.90 [facility] ([facility]) FASTING~.~.~<DG1.3.1>Z01.818</DG1.3.1><DG1.3.1>Z01.818</DG1.3.1><DG1.3.1>E78.5</ DG1.3.1><DG1 #Eos 0.03 10^3/uL 0.00-0.70 [facility] ([facility]) FASTING~.~.~<DG1.3.1>Z01.818</DG1.3.1><DG1.3.1>Z01.818</DG1.3.1><DG1.3.1>E78.5</ DG1.3.1><DG1 #Baso 0.02 10^3/uL 0.00-0.20 [facility] ([facility]) FASTING~.~.~<DG1.3.1>Z01.818</DG1.3.1><DG1.3.1>Z01.818</DG1.3.1><DG1.3.1>E78.5</ DG1.3.1><DG1 #Ig 0.01 10^3/uL 0.00-0.10 [facility] ([facility]) FASTING~.~.~<DG1.3.1>Z01.818</DG1.3.1><DG1.3.1>Z01.818</DG1.3.1><DG1.3.1>E78.5</ DG1.3.1><DG1 Manual Diff [facility] FASTING~.~.~<DG1.3.1>Z01.818</DG1.3.1><DG1.3.1>Z01.818</DG1.3.1><DG1.3.1>E78.5</ DG1.3.1><DG1 #NRBC 0.00 10^3/uL 0.00-0.00 [facility] ([facility]) FASTING~.~.~<DG1.3.1>Z01.818</DG1.3.1><DG1.3.1>Z01.818</DG1.3.1><DG1.3.1>E78.5</ DG1.3.1><DG1 RBC Morph Laboratory test result [facility] ([facility]) FASTING~.~.~<DG1.3.1>Z01.818</DG1.3.1><DG1.3.1>Z01.818</DG1.3.1><DG1.3.1>E78.5</ DG1.3.1><DG1 ID Date Data Source [id number] 10/30/2020 02:08:00 PM EST [facility] Name Value Range Interpretation Code Description Data Jess rce(s) Supporting Document(s) CVE PANEL [facility] LIPID PANEL Cholesterol [Mass/volume] in Serum or Plasma 174 MG/DL 131 - 200 [facility] Deprecated Triglyceride [Mass/volume] in Serum or Plasma 208 MG/DL 3 5 - 160 [facility] HDL 52 MG/DL 29 - 86 [facility] Cholesterol in LDL [Mass/volume] in Serum or Plasma by Direc t assay 95 mg/dL 65 - 175 [facility] Cholesterol.total/Cholesterol in HDL [Mass Ratio] in Serum o r Plasma 3.3 3.2 - 4.4 [facility] LDL/HDL 1.83 1.47 - 3.22 [facility] CVE RISK CHOL/HDL LDL/HDLMEN: 1/2 AVERAGE 3.43 1.00 AVERAGE 4.97 3.55 2X AVERAGE 9.55 6.25 3X AVERAGE 23.99 7.99WOMEN: 1/2 AVERAGE 3.27 1.47 AVERAGE 4.44 3.22 2X AVERAGE 7.05 5.03 3X AVERAGE 11.04 6.14 ID Date Data Source [id number] 10/30/2020 02:08:00 PM EST [facility] Name Value Range Interpretation Code Description Data Jess rce(s) Supporting Document(s) COMPREHENSIVE METABOLIC PANEL [facility] COMPREHENSIVE METABOLIC PANEL Sodium [Moles/volume] in Serum or Plasma 140 mEq/L 134 - 153 [facility] Potassium [Moles/volume] in Serum or Plasma 4.5 mEq/L 3.6 - 5.0 [facility] Chloride [Moles/volume] in Serum or Plasma 105 mEq/L 98 - 107 [facility] Carbon dioxide, total [Moles/volume] in Serum or Plasma 24 MEQ/L 22 - 30 [facility] Glucose [Mass/volume] in Serum or Plasma 131 MG/DL 70 - 99 [facility] BUN 11 MG/DL 7 - 21 [facility] al Creatinine [Mass/volume] in Serum or Plasma 0.6 MG/DL 0.7 - 1.5 L [facility] BUN/CREAT 18 8 - 27 [facility] Protein [Mass/volume] in Serum or Plasma 6.8 G/DL 6.3 - 8.2 [facility] Albumin [Mass/volume] in Serum or Plasma 4.1 G/DL 3.9 - 5.0 [facility] Globulin [Mass/volume] in Serum by calculation 2.7 GM/DL 2.4 - 3.2 [facility] A/G RATIO 1.5 0.8 - 2.0 [facility] Calcium [Mass/volume] in Serum or Plasma 9.0 MG/DL 8.4 - 10.2 [facility] Bilirubin.total [Mass/volume] in Serum or Plasma <0.7 MG/DL 0.2 - 1.3 [facility] Alkaline phosphatase [Enzymatic activity/volume] in Serum or Plasma 120 U/L 38 - 126 [facility] Aspartate aminotransferase [Enzymatic activity/volume] in Serum or Plasma 20 U/L 5 - 40 [facility] Alanine aminotransferase [Enzymatic activity/volume] in Seru m or Plasma 16 U/L 7 - 56 [facility] Anion gap 3 in Serum or Plasma 11.0 mmol/L 8.0 - 16.0 [facility] AGE 75 yrs [facility] NON-AA GFR >60 mL/min [facility] ital AFR AMER GFR >60 [facility] Male GFR In terprentation 20-49 [...] >32 mL/min Normal ID Date Data Source [id number] 10/30/2020 01:55:00 PM [facility] Name Value Range Interpretation Code Description Data Jess rce(s) Supporting Document(s) Thyroxine (T4) free index in Serum or Plasma by calculation 1.08 NG/DL 0.93 - 1.70 [facility] ID Date Data Source [id number] 10/30/2020 01:55:00 PM [facility] Value Range Interpretation Code Description Data Jess rce(s) Supporting Document(s) Thyrotropin [Units/volume] in Serum or Plasma by Detec tion limit <= 0.05 mIU/L 1.40 uIU/mL 0.47 - 5.01 [facility] ID Date Data Source [id number] 10/30/2020 01:37:00 PM [facility] Value Range Interpretation Code Description Data Jess rce(s) Supporting Document(s) CBC W/AUTOMATED DIFF [facility] COMPLETE BLOOD COUNT Leukocytes [#/volume] in Blood by Automated count 5.9 10^3/uL 4.2 - 1 1.0 [facility] Erythrocytes [#/volume] in Blood by Automated count 4.37 10^6/uL 4. 20 - 5.40 [facility] Hemoglobin [Mass/volume] in Blood 12.8 g/dL 12.0 - 16.0 [facility] Hematocrit [Volume Fraction] of Blood by Automated count 39.3 % 3 7.0 - 47.0 [facility] Erythrocyte mean corpuscular volume [Entitic volume] by Auto mated count 89.9 fL 81.0 - 101 [facility] Erythrocyte mean corpuscular hemoglobin [Entitic mass] by Automated count 29.3 pg 27.0 - 34.0 [facility] Erythrocyte mean corpuscular hemoglobin concentration [Mass/volume] by Automated count 32.6 g/dL 31.0 - 36.0 [facility] Erythrocyte distribution width [Ratio] by Automated count 13.9 % 11.5 - 14.5 [facility] Platelets [#/volume] in Blood by Automated count 232 10^3/uL 150 - 45 0 [facility] Platelet mean volume [Entitic volume] in Blood by Automated count 10.0 fL 7.4 - 10.4 [facility] Neutrophils/100 leukocytes in Blood by Automated count 64.3 % 37. 0 - 80.0 [facility] Lymphocytes/100 leukocytes in Blood by Manual count 27.9 % 25.0 - 40.0 [facility] Monocytes/100 leukocytes in Blood by Automated count 6.8 % 3.0 - 8.0 [facility] Eosinophils/100 leukocytes in Blood by Automated count 0.5 % 0.0 - 7.0 [facility] Basophils/100 leukocytes in Blood by Automated count 0.3 % 0.0 - 2.5 [facility] %IG 0.2 % 0.0 - 0.0 [facility] al %NRBC 0.0 % 0.0 - 0.0 [facility] Neutrophils [#/volume] in Blood by Automated count 3.78 10^3/uL 2.00 - 6.90 [facility] Lymphocytes [#/volume] in Blood by Automated count 1.64 10^3/uL 0.60 - 3.40 [facility] Monocytes [#/volume] in Blood by Automated count 0.40 10^3/uL 0.00 - 0.90 [facility] Eosinophils [#/volume] in Blood by Automated count 0.03 10^3/uL 0.00 - 0.70 [facility] Basophils [#/volume] in Blood by Automated count 0.02 10^3/uL 0.00 - 0.20 [facility] #IG 0.01 10^3/uL 0.00 - 0.10 [facility] ospital #NRBC 0.00 10^3/uL 0.00 - 0.00 [facility] ospital MANUAL DIFF NOT INDICATED [facility] RBC MORPH NOT INDICATED [facility] spital ID Date Data Source [id number] 09/08/2020 10:00:00 AM EST [facility] Name Value Range Interpretation Code Description Data Jess rce(s) Supporting Document(s) SARS coronavirus 2 RNA [facility] This lab was ordered by [facility] and reported by [facility]. Procedure Social History Code Duration Value Status Description Data Source(s ) Smoking 09/16/2020 12:00:00 AM EST Never Smoked A Pipe complet ed Never Smoked A Pipe [facility] ([facility]) Vital Signs ID Date Data Source UNK Name Value Range Interpretation Code Description Data Source(s) Systolic blood pressure 110 mm[Hg] 110 mm[Hg] M [facility] ([facility]) Diastolic blood pressure 68 mm[Hg] 68 mm[Hg] [facility] ([facility]) Heart rate 85 /min 85 /min [facility] ([facility]) Body temperature 97.3 [degF] 97.3 [degF] [facility] ([facility]) Respiratory rate 16 /min 16 /min [facility] ( [facility]) Oxygen saturation in Arterial blood by Pulse oximetry 98 % 98 % [facility] ([facility]) Body weight 152.50 [lb_av] 152.50 [lb_av] [facility] ([facility]) Body weight 69.174 kg 69.174 [facility] Body height 68 [in_i] 68 [in_i] [facility] ([facility]) 5'8" Body mass index (BMI) [Ratio] 23.2 kg/m2 23.2 k g/m2 [facility] ([facility]) Body surface area Derived from formula 1.82 m2 1.82 m2 [facility] ([facility]) Systolic blood pressure 104 mm[Hg] 104 mm[Hg] M [facility] ([facility]) Diastolic blood pressure 58 mm[Hg] 58 mm[Hg] [facility] ([facility]) Heart rate 74 /min 74 /min [facility] ([facility]) Body temperature 96.0 [degF] 96.0 [degF] [facility] ([facility]) Respiratory rate 18 /min 18 /min [facility] ( [facility]) Oxygen saturation in Arterial blood by Pulse oximetry 97 % 97 % [facility] ([facility]) Body weight 156.00 [lb_av] 156.00 [lb_av] [facility] ([facility]) Body weight 70.762 kg 70.762 kg [facility] Body height 68 [in_i] 68 [in_i] [facility] ([facility] 5'8" Body mass index (BMI) [Ratio] 23.7 kg/m2 23.7 k g/m2 [facility] ([facility]) Body surface area Derived from formula 1.84 m2 1.84 m2 [facility] Heart rate 76 /min 76 /min [facility] ([facility]) Diastolic blood pressure 62 mm[Hg] 62 mm[Hg] [facility] ([facility]) Systolic blood pressure 118 mm[Hg] 118 mm[Hg] M [facility] ([facility]) Body temperature 97.8 [degF] 97.8 [degF] [facility] ([facility]) Respiratory rate 18 /min 18 /min [facility] ( [facility]) Oxygen saturation in Arterial blood by Pulse oximetry 98 % 98 % [facility] ([facility]) Body weight 157.00 [lb_av] 157.00 [lb_av] [facility] ([facility]) was able to step on scale today Body weight 71.215 kg 71.215 kg [facility] ([facility]) Body height 68 [in_i] 68 [in_i] [facility] ([facility]) 5'8" Body mass index (BMI) [Ratio] 23.9 kg/m2 23.9 k g/m2 [facility] ([facility]) Body surface area Derived from formula 1.84 m2 1.84 m2 [facility] ([facility]) Body weight 174.00 [lb_av] 174.00 [lb_av] [facility] ([facility]) appox-- us unable to get on scale today frandy Systolic blood pressure 114 mm[Hg] 114 mm[Hg] [facility] ([facility]) Diastolic blood pressure 64 mm[Hg] 64 mm[Hg] [facility] ([facility]) Heart rate 73 /min 73 /min [facility] ([facility]) Body temperature 97.7 [degF] 97.7 [degF] [facility] ([facility]) Respiratory rate 16 /min 16 /min [facility] ( [facility]) Oxygen saturation in Arterial blood by Pulse oximetry 96 % 96 % [facility] ([facility]) Body weight 78.926 kg 78.926 kg [facility] ([facility]) Body height 68 [in_i] 68 [in_i] [facility] ([facility]) 5'8" Body mass index (BMI) [Ratio] 26.5 kg/m2 26.5 k g/m2 [facility] ([facility]) Body surface area Derived from formula 1.93 m2 1.93 m2 [facility] ([facility]) Body mass index (BMI) [Ratio] 26.5 kg/m2 26.5 k g/m2 [facility] ([facility]) Systolic blood pressure 130 mm[Hg] 130 mm[Hg] [facility] ([facility]) Diastolic blood pressure 58 mm[Hg] 58 mm[Hg] [facility] ([facility]) Heart rate 80 /min 80 /min [facility] ([facility]) Body temperature 98.6 [degF] 98.6 [degF] [facility] ([facility]) Respiratory rate 16 /min 16 /min [facility] ( [facility]) Oxygen saturation in Arterial blood by Pulse oximetry 98 % 98 % [facility] ([facility]) Body weight 174.00 [lb_av] 174.00 [lb_av] [facility] ([facility]) Body weight 78.926 kg 78.926 kg [facility] ([facility]) Body height 68 [in_i] 68 [in_i] [facility] ([facility]) 5'8" Body surface area Derived from formula 1.93 m2 1.93 m2 [facility] ([facility]) Systolic blood pressure 118 mm[Hg] 118 mm[Hg] [facility] ([facility]) Oxygen saturation in Arterial blood by Pulse oximetry 97 % 97 % [facility] ([facility]) Body height 68 [in_i] 68 [in_i] [facility] ([facility]) 5'8" Body weight 176.00 [lb_av] 176.00 [lb_av] [facility] ([facility]) Body weight 79.834 kg 79.834 kg [facility] ([facility]) Diastolic blood pressure 74 mm[Hg] 74 mm[Hg] [facility] ([facility]) Heart rate 68 /min 68 /min [facility] ([facility]) Body temperature 97.6 [degF] 97.6 [degF] [facility] ([facility]) Respiratory rate 16 /min 16 /min [facility] ( [facility]) Body mass index (BMI) [Ratio] 26.8 kg/m2 26.8 k g/m2 [facility] ([facility]) Body surface area Derived from formula 1.94 m2 1.94 m2 [facility] ([facility]) Systolic blood pressure 106 mm[Hg] 106 mm[Hg] [facility] ([facility]) Diastolic blood pressure 60 mm[Hg] 60 mm[Hg] [facility] ([facility]) Heart rate 78 /min 78 /min [facility] ([facility]) Body temperature 97.3 [degF] 97.3 [degF] [facility] ([facility]) Respiratory rate 20 /min 20 /min [facility] ( [facility]) Oxygen saturation in Arterial blood by Pulse oximetry 96 % 96 % [facility] ([facility]) Body weight 171.00 [lb_av] 171.00 [lb_av] [facility] ([facility]) Body weight 77.566 kg 77.566 kg [facility] [facility] ([facility]) Body height 68 [in_i] 68 [in_i] [facility] ([facility]) 5'8" Body mass index (BMI) [Ratio] 26.0 kg/m2 26.0 k g/m2 [facility] ([facility]) Body surface area Derived from formula 1.91 m2 1.91 m2 [facility] ([facility])
--- NOTE | 2021-08-07 12:15 | HPEPDOC ---
[facility] Medical History & Physical Date of Admission Aug 07, 2021 (August 07, 2021) Date of Service: Aug 07, 2021 (August 07, 2021) Attending Physician: DANIAL PENNINGTON MD History and Physical CHIEF COMPLAINT: Syncope HISTORY OF PRESENT ILLNESS: Ms. Morris is a 76 yo female with a PMH of HTN, li ia, and depression who presents with a syncopal episode this morning 08/07/2021. Patient lives with son, Bonifacio, and has a full-time healthcare aide at home. Patient went to the bathroom to change and was found on the toilet. Patient did not hit her head and did not fall off the toilet but just slumped over and laid flaccid on the toilet. Patient awoke to sternal rub by EMS and was initially lethargic but has since improved. Initial blood pressure was SBP of 80 with unpalatable pulse but was given fluids and pressures increased. While on route to the hospital, EMS reports an approximate 6 second run of ventricular tachycardia prior to arrival. Of note, the patient was admitted to [facility] for a syncopal episode in April 2019 and most recently went to the [facility] emergency department on 08/01/2021 for a UTI from E. coli and was sent home on Cefdinir. Upon arrival to the ED, patient was found to be afebrile with BP 127/58 and HR of 73. Labs showed an increased lactic at 3.6 and glucose of 206, normal TSH of 2.28 and BNP of 96, with troponin negative x1. IVF were started. Imaging with CXR showed suspected mild interstitial edema and CT head showed no acute intracranial pathology. EKG showed normal sinus rhythm with first degree AV block with MA interval of 218 ms. Of note, previous EKG was 08/01/2021 where it showed a NSR with first degree AV block with MA interval at 244 ms. Patient's history is limited due to her dementia. Patient was admitted to Medical Surgery Floor for syncopal workup. PAST MEDICAL HISTORY: 1. HTN. 2. Dementia. 3. Depression 4. HLD 5. Hypothyroidism PAST SURGICAL HISTORY: 1. Total hysterectomy 2. Bowel resection for diverticulitis 3. Appendectomy 4. Six surgeries on left knee SOCIAL HISTORY: Obtained from EMR. Tobacco use: Denies ETOH: Denies Drug use: Denies FAMILY HISTORY: None relevant ALLERGIES: Please see below. REVIEW OF SYSTEMS: Unable to obtain due to patient's dementia. HOME MEDICATIONS: Please see below. PHYSICAL EXAMINATION: VITAL SIGNS: Temperature 97.2, pulse 80, respiratory rate 16, blood pressure 136/63, pulse oximetry 96% on room air. GENERAL APPEARANCE: Awake and pleasantly demented elderly female who looks stated age who does not respond to verbal stimuli and makes incomprehensible sounds. Does not appear in acute pain or in distress. HEENT: Head NC and AT. No lymphadenopathy. PERRLA. Patient yells "stop it" when light shined into her eyes. Neck ROM was slightly rigid and stiff but no signs of pain upon palpation. CARDIOVASCULAR: RRR. S1S2. No m/r/g. LUNGS: CTA b/l. No wheezes, coughs, rales, crackles. ABDOMEN: Soft, nondistended, tender to palpation. Patient yells "stop it" upon deep palpation in RUQ. MUSCULOSKELETAL: No deformities appreciated. EXTREMITIES: No edema. SKIN: No rashes or lesions noted. NEUROLOGICAL: No focal defects noted. PSYCHIATRIC: Pt is demented. Pt makes incomprehensible sounds and groans. Pt does not respond to verbal commands. LABORATORY DATA: See below. IMAGING: CXR 08/07 -Mild interstitial edema suspected CT Head 08/07 -No acute intracranial pathology EKG 08/07 -Sinus rhythm with 1st degree AV block. MA interval 218 ms. MICROBIOLOGY: Please see below. ASSESSMENT: Ms. Morris is a 76 yo female with a PMH of HTN, dementia, and depression who presents with a syncopal episode of one day and was admitted for further workup. PLAN: # Syncopal episode 2/2 cardiac arrhythmia vs orthostatic hypotension -CT head 08/07 show no acute findings -Admit to tele -Ordered echo with color Doppler flow. -Last echo was Apr 2019 which showed LVEF of 75% and left atrial size upper limits of normal with Doppler evidence of an impairment of LV diastolic function -Ordered orthostatic vitals -BNP WNL at 96 # Cardiac arrhythmia 2/2 underlying arrhythmia vs hypotension vs infection -Episode of V tach on EMS transport -Trop neg x1. Will repeat troponin. -TSH 08/07 WNL at 2.28 -Lactic 08/07 elevated 3.6 with repeat lactic 4hr later WNL at 1.3. -EKG 08/07 show prolonged MA interval of 218 ms. Past EKGs on Apr 2019 showed 244 ms. -c/t IVF. On D5 for now given NPO status. # Dementia -Complicating care -MANAGER COPY mina ordered. Place on NPO and aspiration precautions for now. Started D5 100 mL/hr IVF for now given NPO status. -PT/OT evaluation and therapeutic treatment ordered # HTN -Hold home meds for now until orthostatics negative. # Depression/mood disorder -c/t home meds aripiprazole 5 mg PO daily, citalopram 20 mg PO daily PM, buspirone 5 mg PO BID, mirtazapine 15 mg PO daily, # HLD -Atorvastatin 10 mg PO daily PM # Hypothyroidism -Levothyroxine 75 mcg PO daily DVT Prophylaxis: Heparin subQ 5000U q12hr Diet: NPO. Started D5 IVF. Aspiration precautions Activity: Fall precautions Code: Full code Disposition: Home vs placement pending clinical outcome Vital Signs Vital Signs Date Time Temp Pulse Resp B/P (MAP) Pulse Ox O2 Delivery O2 Flow Rate FiO2 08/07/21 09:45 80 16 136/63 (87) 08/07/21 08:15 96 08/07/21 06:55 97.2 Room Air Laboratory Data Labs 24H Laboratory Tests 2 08/07/21 07:08: Immature Granulocyte % (Auto) 0.3, Neutrophils (%) (Auto) 70.4H, Lymphocytes (%) (Auto) 21.6L, Monocytes (%) (Auto) 6.6, Eosinophils (%) (Auto) 0.5, Basophils (%) (Auto) 0.6, Neutrophils # (Auto) 4.7, Lymphocytes # (Auto) 1.4L, Monocytes # (Auto) 0.4, Eosinophils # (Auto) 0.0, Basophils # (Auto) 0.0, Nucleated Red Blood Cells % (auto) 0.0, Anion Gap 4L, Glomerular Filtration Rate > 60.0, Lactic Acid Level 3.6*H, Calcium Level 8.8, Magnesium Level 2.7H, Total Creatine Kinase 45, Creatine Kinase MB < 1.0, Creatine Kinase MB Relative Index 2.22, Troponin I < 0.02, WC-Flq-V-Type Natriuretic Peptide 96, Thyroid Stimulating Hormone (TSH) 2.280, Free Thyroxine 1.12 08/07/21 07:32: Blood Gas Bicarbonate Standard 25.8, Venous Blood pH 7.375, Venous Blood Partial Pressure CO2 49.7, Venous Blood Partial Pressure O2 30.8, Venous Blood Total Carbon Dioxide 29.9H, Venous Blood HCO3 28.4H, Venous Blood Oxygen Saturation 57.6L, Venous Blood Base Excess 2.5H 08/07/21 08:12: Coronavirus (COVID-19)(PCR) NEGATIVE, Influenza Type A (RT-PCR) NEGATIVE, Influenza Type B (RT-PCR) NEGATIVE, Respiratory Syncytial Virus (PCR) NEGATIVE CBC/BMP Laboratory Tests 08/07/21 07:08 Home Medications Scheduled Amlodipine Besylate (Norvasc) 5 Mg Tablet, 5 MG PO QHS Take 1 tablet by mouth at night Aripiprazole (Abilify) 5 Mg Tablet, 5 MG PO QHS Atorvastatin Calcium (Lipitor) 10 Mg Tablet, 10 MG PO QPM Buspirone HCl (Buspirone HCl) 5 Mg Tablet, 5 MG PO BID 0800, 1700 Citalopram Hydrobromide (Celexa) 20 Mg Tablet, 20 MG PO QPM Furosemide (Furosemide) 20 Mg Tablet, 20 MG PO PRN Take 1 tablet by mouth once daily only as needed for lower extremity swelling Levothyroxine Sodium (Levothyroxine Sodium) 75 Mcg Tablet, 75 MCG PO DAILY Lisinopril (Lisinopril) 5 Mg Tablet, 5 MG PO QPM Melatonin (Melatonin) 10 Mg Tablet, 10 MG PO QHS Mirtazapine (Remeron) 15 Mg Tablet, 15 MG PO QHS Allergies Coded Allergies: No Known Allergies (Verified , 11/08/20) A-FIB/CHADSVASC A-FIB History Current/History of A-Fib/PAF?: No GME ATTESTATION GME ATTESTATION My faculty preceptor for this patient encounter was physically present during the encounter and was fully available. All aspects of the patient interview, examination, medical decision making process, and medical care plan development were reviewed and approved by the faculty preceptor. The faculty preceptor is aware and concurs with the plan as stated in the body of this note and will attest to such by his/her cosignature. ATTENDING NOTE I, Danial Pennington MD, have independently examined this patient and performed my own physical exam with the medical students and residents in the room with me, as well as reviewed the documentation and edited where necessary. I have discussed in detail with the resident and student the findings and plan of treatment as documented and edited their note. I agree with their findings and treatment plan and have edited their documentation. NICOLE DE LUNA OMS-4 Aug 07, 2021 12:15 JUANITA SENIOR D.O. Aug 08, 2021 15:11 DANIAL PENNINGTON MD Aug 08, 2021 15:38
[2021-08-07] MEDS: D5W/0.9% SODIUM CHLORIDE 1,000 ML IV SCH (15:27)
[2021-08-07 16:22] LABS: CK-MB VALUE MASS 3.1 NG/ML (<3.6); CPK CREATINE PHOSPHOKINASE 293 U/L (26-192); MB/CK RELATIVE INDEX 1.06 (< OR =4); TROPONIN I < 0.02 NG/ML (< 0.10)
[2021-08-07] MEDS: busPIRone 5 MG TAB PO SCH (18:49)
[2021-08-07] MEDS: HEPARIN SOD (PORCINE) 5000UNITS/ML 1ML VIAL/SYRINGE SC SCH (20:35)
[2021-08-07] MEDS: DOCUSATE SODIUM 100MG CAPSULE PO SCH (20:35)
[2021-08-07] MEDS ORDERED: MIRTAZAPINE 15 MG TAB PO SCH (21:00)
[2021-08-07] MEDS ORDERED: ATORVASTATIN 10 MG TAB PO SCH (21:00)
[2021-08-07] MEDS ORDERED: CitaloPRAM (CeleXA) 20 MG TAB PO SCH (21:00)
[2021-08-07 22:00] VITALS: BP 137/66
[2021-08-08] MEDS: D5W/0.9% SODIUM CHLORIDE 1,000 ML IV SCH (04:10)
[2021-08-08 06:00] VITALS: BP 143/62
[2021-08-08] MEDS ORDERED: LEVOTHYROXINE 75MCG TABLET (0.075MG) PO SCH (06:00)
[2021-08-08 07:01] LABS: HEMATOCRIT 33.3 % (36.0-47.0); HEMOGLOBIN 11.2 g/dl (12.0-15.5); MEAN CORPUSCULAR HEMOGLOBIN 28.7 pg (27.0-33.0); MEAN CORPUSCULAR HGB CONC 33.6 g/dl (32.0-36.5); MEAN CORPUSCULAR VOLUME 85.4 fl (80.0-96.0); PLATELET COUNT, AUTOMATED 215 10^3/uL (150-450); WHITE BLOOD COUNT 6.6 10^3/uL (4.0-10.0)
[2021-08-08 07:15] LABS: BLOOD UREA NITROGEN 8 MG/DL (7-18); CALCIUM LEVEL 8.2 MG/DL (8.8-10.2); CARBON DIOXIDE LEVEL 23 MEQ/L (21-32); CHLORIDE LEVEL 110 MEQ/L (98-107); CREATININE FOR GFR 0.62 MG/DL (0.55-1.30); GLOMERULAR FILTRATION RATE > 60.0 (>39); GLUCOSE, FASTING 190 MG/DL (70-100); MAGNESIUM LEVEL 2.5 MG/DL (1.8-2.4); POTASSIUM SERUM 3.9 MEQ/L (3.5-5.1); SODIUM LEVEL 140 MEQ/L (136-145)
[2021-08-08] MEDS ORDERED: FLUBLOK(EGG FREE)(QUAD)INFLUENZA VACC 0.5ML SYRINGE 18YRS & OLDER IM ONE (09:00)
[2021-08-08] MEDS: DOCUSATE SODIUM 100MG CAPSULE PO SCH (09:46)
[2021-08-08] MEDS: busPIRone 5 MG TAB PO SCH (09:46)
[2021-08-08] MEDS: HEPARIN SOD (PORCINE) 5000UNITS/ML 1ML VIAL/SYRINGE SC SCH (09:48)
[2021-08-08] MEDS ORDERED: NORV5TAB PO (13:38)
[2021-08-08] MEDS ORDERED: FURO20TA2 PO (13:40)
[2021-08-08 14:00] VITALS: BP 158/72
--- NOTE | 2021-08-08 17:46 | DS.PDOC ---
Discharge Summary General Date of Admission Aug 07, 2021 at 11:12 Date of Discharge August 08, 2021 Attending Physician: ALCIDES SCOTT MD Discharge Summary PROCEDURES PERFORMED DURING STAY: None. ADMITTING DIAGNOSES: 1. Syncope. DISCHARGE DIAGNOSES: 1. Vasovagal syncope. COMPLICATIONS/CHIEF COMPLAINT: Syncope. HISTORY OF PRESENT ILLNESS: Ms. Morris is a 76 yo female with a PMH of HTN, dementia, and depression who presents with a syncopal episode the morning of 08/07/2021. Patient lives at home with son, Bonifacio, and has a full-time healthcare aide, Ruma, to help out during the weekdays at home. Patient went to the bathroom and quickly stood and fell backwards onto the toilet. Patient did not lose consciousness and did not hit her head, but just slumped over on the toilet and was still able to move her hands. Patient was initially lethargic but has since improved. Initial blood pressure was SBP of 80 but was given fluids and pressures increased. While on route to the hospital, EMS reports an approximate 6 second run of ventricular tachycardia prior to arrival. Of note, the patient was admitted to [facility] for a syncopal episode in April 2019 and most recently went to the [facility] emergency department on 08/01/2021 for a UTI from E. coli and was sent home on Cefdinir for which the pt completed the antibiotic course. Upon arrival to the ED, patient was found to be afebrile with BP 127/58 and HR of 73. Labs showed an increased lactic at 3.6 and glucose of 206, normal TSH of 2.28 and BNP of 96, with troponin negative x1. IVF were started. Imaging with CXR showed suspected mild interstitial edema and CT head showed no acute intracranial pathology. EKG showed normal sinus rhythm with first degree AV block with ND interval of 218 ms. Of note, previous EKG was 08/01/2021 where it showed a NSR with first degree AV block with ND interval at 244 ms. Patient's history is limited due to her dementia. Patient was admitted to Medical Surgery Floor for syncopal workup. HOSPITAL COURSE: Upon arrive to the medical floor, pt was still uncooperative due to her dementia and became more agitated. Echocardiogram was not performed as pt was uncooperative and was planned for later once pt calmed down. Pt frequently pulled out IV's so glove mitts were placed. Pt continued to receive D5 fluids as pt was made NPO until PHERESIS NURSE assess and cleared pt. The next day on 08/08, the pt clinically improved and was more alert and much calmer. Pt's diet was advanced and pt was walking out of bed with PT/OT. After talking with the pt's son, history surrounding syncopal episode revealed the source of syncope was most likely due to a vasovagal. EKG and telemetry showed now acute findings. It was noted that some of the telemetry strips showing potential abnormalities, but the abnormalities were clinically more signs of artifacts rather than true arrhythmias. In regards to the planned echocardiogram to assess cardiac function as the last echo was done in 2019, the echo could be done in an outpatient setting as the pt has remained clinically stable and showed no signs of cardiac decompensation. Pt's vitals remained normotensive with heart rate stable in the 70's-80's, so the pt's home hypertensive medications have all been held during the hospital course but will be slowly added back upon discharge and should be followed up outpatient. Per the pt's son, José Miguel, he reports that all antidepressant medications Aripiprazole, Citalopram, Buspirone, and Mirtazapine have all been discontinued. However, upon calling their pharmacy[facility], the antidepressive medications have continue to be filled according to the pharmacy medication reconciliation. Pt will be discharged with continuation of all antidepressants and pt should follow up with PCP regarding this di screpancy. Pt is medically optimized and no longer requires hospital level of care. DISCHARGE MEDICATIONS: Please see below. ALLERGIES: Please see below. PHYSICAL EXAMINATION ON DISCHARGE: VITAL SIGNS: Please see below. GENERAL: Pleasant and joyful elderly demented female who looks her stated age. Pt is only oriented to first name only which his her baseline. Pt is alert and awake and responds with incomprehensible responses. HEENT: Head NC and AT. Mucous membranes moist. No lymphadenopathy. CARDIOVASCULAR EXAMINATION: RRR. S1S2. No murmurs appreciated. RESPIRATORY EXAMINATION: Lungs CTA. No wheezes, coughs, crackles. ABDOMINAL EXAMINATION: Soft, nontender, nondistended. EXTREMITIES: Full ROM with strength equal bilaterally. Pt able to ambulate with support. SKIN: No new rashes. NEUROLOGICAL EXAMINATION: No focal defects appreciated. PSYCHIATRIC EXAMINATION: Pleasantly demented. Oriented only to name. Responds with incomprehensible responses. LABORATORY DATA: Please see below. IMAGING: CXR 08/07 -Mild interstitial edema suspected CT Head 08/07 -No acute intracranial pathology EKG 08/07 -Sinus rhythm with 1st degree AV block. ND interval 218 ms. PROGNOSIS: Good ACTIVITY: As tolerated. DIET: 2 gram sodium diet DISCHARGE PLAN/DISPOSITION: Home with healthcare aide DISCHARGE INSTRUCTIONS: 1. Follow up with PCP within 7-10 days. 3. Continue to take medications as prescribed upon discharge. 4. Discontinued all home hypertension medications except continue Amlodipine 5 mg PO daily at night and will change Lisinopril 5 mg PO to an as needed basis. 5. If symptoms worsen, come back to the emergency department for reassessment. ITEMS TO FOLLOWUP ON ON OUTPATIENT: 1. Follow up with PCP within 7-10 days for recent hospital discharge, change in hypertensive medications, status of prescribed antidepressant medication, and follow up for outpatient echocardiogram to assess cardiac function. DISCHARGE CONDITION: Stable. TIME SPENT ON DISCHARGE: 35 minutes. Vital Signs/I&Os Vital Signs Date Time Temp Pulse Resp B/P (MAP) Pulse Ox O2 Delivery O2 Flow Rate FiO2 08/08/21 06:00 99.1 88 17 143/62 (89) 94 Room Air I&O- Last 24 Hours up to 6 AM 08/08/21 05:59 Intake Total 1800 ml Output Total 0 ml Balance 1800 ml Laboratory Data Labs 24H Laboratory Tests 2 08/07/21 15:26: Total Creatine Kinase 293#H, Creatine Kinase MB 3.1, Creatine Kinase MB Relative Index 1.06, Troponin I < 0.02 08/08/21 00:09: Bedside Glucose (Misc Panel) 182H 08/08/21 06:31: Nucleated Red Blood Cells % (auto) 0.0, Anion Gap 7L, Glomerular Filtration Rate > 60.0, Calcium Level 8.2L, Magnesium Level 2.5H 08/08/21 12:18: Bedside Glucose (Misc Panel) 115H CBC/BMP Laboratory Tests 08/08/21 06:31 FSBS Laboratory Tests Test 08/08/21 00:09 08/08/21 12:18 Range/Units Bedside Glucose (Misc Panel) 182 115 83-110 MG/DL Discharge Medications Scheduled Amlodipine Besylate (Norvasc) 5 Mg Tablet, 5 MG PO QHS Take 1 tablet by mouth at night Aripiprazole (Abilify) 5 Mg Tablet, 5 MG PO QHS, (Reported) Atorvastatin Calcium (Lipitor) 10 Mg Tablet, 10 MG PO QPM, (Reported) Buspirone HCl (Buspirone HCl) 5 Mg Tablet, 5 MG PO BID, (Reported) 0800, 1700 Citalopram Hydrobromide (Celexa) 20 Mg Tablet, 20 MG PO QPM, (Reported) Furosemide (Furosemide) 20 Mg Tablet, 20 MG PO PRN Take 1 tablet by mouth once daily only as needed for lower extremity swelling Levothyroxine Sodium (Levothyroxine Sodium) 75 Mcg Tablet, 75 MCG PO DAILY, (Reported) Lisinopril (Lisinopril) 5 Mg Tablet, 5 MG PO QPM, (Reported) Melatonin (Melatonin) 10 Mg Tablet, 10 MG PO QHS, (Reported) Mirtazapine (Remeron) 15 Mg Tablet, 15 MG PO QHS, (Reported) Allergies Coded Allergies: No Known Allergies (Verified , 11/08/20) NICOLE DE LUNA OMS-4 Aug 08, 2021 15:24 JUANITA SENIOR D.O. Aug 08, 2021 18:20
[2021-08-08] MEDS ORDERED: lisinopriL 5 MG TAB PO SCH (21:00)
== END 2021-08-08 17:24 | disposition home or self-care (01) | DRG 312 ==
LOC: M ED 06:45 → M ED INP 11:12 → ENRESERV 16:30 → M MSPAV 18:10
PROVIDERS: ADMIT Internal Medicine; ATTEND Internal Medicine
DX: R55 Syncope and collapse (principal); F03.91 Unspecified dementia, unspecified severity, with behavioral disturbance; I47.2 Ventricular tachycardia; I10 Essential (primary) hypertension; F32.A Depression, unspecified; E78.5 Hyperlipidemia, unspecified; E03.9 Hypothyroidism, unspecified; Z90.79 Acquired absence of other genital organ(s); Z90.49 Acquired absence of other specified parts of digestive tract; Z20.822 Contact with and (suspected) exposure to COVID-19; Z79.899 Other long term (current) drug therapy

== ENCOUNTER 2021-08-15 09:11 | Emergency (ER) | payer MEDICARE ==
[~2021-08-15 09:11] MED LIST changes: +AMLO1TAB25 PO; +MIRT-62 PO; +PATIENT COMMENT; +RA M10TA PO
--- OUTSIDE RECORDS SUMMARY | 2021-08-15 09:17 | CCD ---
Continuity of Care Document (CCD) Created on: 08/12/2021 Marlene Morris External Reference #: [id number] : [id number] Sex: Female Author Author Marlene SOUTH M.D. Organization Unknown Address [address] [place] [id number] Phone [phone] Care Team Providers Care Basket Hand Weaver Name Role Phone Pablito South M.D. AUTM [phone] [facility] AUTM [phone] [facility] AUTM Problems Active Problems Provider Date Peripheral vascular disease Kathleen Mendes DPM-pc Onset: Dystrophia unguium EAGLE FreyM-pc Onset: 07/21/2019 Onychomycosis Eveline Frey Onset: 07/21/2019 Hammer toe Eveline Frey Onset: 07/21/2019 Pain in limb Eveline Frey Onset: 07/21/2019 [place] of toe EAGLE FreyM-pc Onset: 07/21/2019 Alzheimer's [...] SIG Qnty Indications Ordering Provide r Date Mirtazapine 15mg Tablets 1 tab by mouth every day at bed time 90tabs G47.00 Pablito South MD 2020 BD [employer] Medical Gloves Large Misc R32 Pablito South MD 11/11/2020 Hospital Bed dx g30.9, m19.9 Kaylie Rincon 08/12/2020 Transport Chair Misc use daily 1units M19.90 [...] Mouth @5PM 124tabs E78.5 Pablito South MD 0 000 Levothyroxine Sodium 75mcg Tablets Take One Tablet By Mouth @7Am 124tabs E03.9 Pablito South MD Lisinopril 5mg Tablets Take One Tablet By Mouth @5PM 124tabs I10 Pablito South MD Immunizations CPT Code Status Date Vaccine Lot # [id number] Given 07/14/2021 Influenza (>= 6 Months) P.F. Vaccine [id number] Given 10/10/2020 Influenza (>= 6 Months) P.F. Vaccine [id number] Vital Signs Date Vital Result Comment 08/12/2021 11:09am BP Systolic 132 mmHg BP Diastolic 74 mmHg Heart Rate 94 /min Body Temperature 97.3 F Respiratory Rate 18 /min O2 % BldC Oximetry 96 % Weight 155.12 lb Weight 70.365 kg Height 68 inches 5'8" BMI (Body Mass Index) 23.6 kg/m2 BSA (Body Surface Area) 1.83 m2 07/14/2021 11:19am BP Systolic 110 mmHg BP Diastolic 68 mmHg Heart Rate 85 /min Body Temperature 97.3 F Respiratory Rate 16 /min O2 % BldC Oximetry 98 % Weight 152.50 lb Weight 69.174 kg Height 68 inches 5'8" BMI (Body Mass Index) 23.2 kg/m2 BSA (Body Surface Area) 1.82 m2 Results Test Acquired Date Facility Test Result H/L Range Note Laboratory test finding 08/01/2021 [facility] Lactic Acid Sepsis Protocol 1.1 mmol/L Normal 0.4-2.0 1 Ua W/ Reflex To Culture 08/01/2021 [facility] Appearance, Urine RFX HAZY Normal Clear Color, Urine RFX YELLOW Normal Yellow PH,Urine RFX 5.0 units Normal 5.0-9.0 Specific Gilbert Ur Auto RFX 1.032 Normal 1.002-1.035 Protein, Urine Auto RFX NEGATIVE mg/dL Normal Negative Glucose, Urine (Ua) Auto RFX 3+ mg/dL High Negative Ketone, Urine Auto RFX NEGATIVE mg/dL Normal Negative Urobilinogen, Urine Auto RFX 0.2 mg/dL Normal 0.0-2.0 Bilirubin, Urine Auto RFX NEGATIVE Normal Negative Nitrite, Urine Auto RFX POSITIVE High Negative Leukocyte Esterase Ur Auto RFX 2+ High Negative Blood, Urine Blood RFX NEGATIVE Normal Negative WBC, Urine Auto RFX 28 /HPF High 0-3 RBC, Urine Auto RFX 3 /HPF Normal 0-3 Bacteria, Urine Auto RFX 1+ High Negative Squam Epithelial Cell Ur Aurfx 0 /HPF Normal 0-6 Mucus, Urine RFX SMALL Normal Negative Hyaline Cast, Urine Auto RFX 0 /LPF Normal 0-1 Reflex Urine Culture 08/01/2021 [facility] Reflex Urine Culture FULL REPORT IN L <SEE NOTE> Normal 2 Istat Chem8+ Panel 08/01/2021 [facility] iSTAT HCT 30.0 % Low 38.0-51.0 iSTAT Glucose 186 mg/dL High 70-105 iSTAT Sodium 140 mEq/L Normal 136-145 iSTAT Potassium 3.8 mEq/L Normal 3.5-5.1 iSTAT CA++ 4.4 mg/dL Low 4.5-5.3 iSTAT Chloride 104 mEq/L Normal 98-109 iSTAT Co2 24.0 MM/L Normal 23.0-27.0 iSTAT BUN 25 mg/dL Normal 8-26 iSTAT Creatinine 0.5 mg/dL Low 0.6-1.3 CBC With Differential 08/01/2021 [facility] White Blood Count 9.0 10 Normal 4.0-10.0 Red Blood Count 3.78 10 Low 4.00-5.40 Hemoglobin 11.1 g/dL Low 12.0-15.5 Hematocrit 34.3 % Low 36.0-47.0 Mean Corpuscular Volume 90.7 fl Normal 80.0-96.0 Mean Corpuscular Hemoglobin 29.4 pg Normal 27.0-33.0 Mean Corpuscular HGB Conc 32.4 g/dL Normal 32.0-36.5 Red Cell Distribution Width 13.5 % Normal 11.5-14.5 Platelet Count, Automated 184 10 Normal 150-450 Neutrophils % 67.8 % High 36.0-66.0 Lymph % 22.0 % Low 24.0-44.0 Pitt % 9.1 % High 2.0-8.0 Eos % 0.4 % Normal 0.0-3.0 Baso % 0.3 % Normal 0.0-1.0 Immature Granulocyte % 0.4 % Normal 0-3.0 Nucleated Red Blood Cell % 0.0 % Normal 0-0 Neutrophils # 6.1 10 Normal 1.5-8.5 Lymph # 2.0 10 Normal 1.5-5.0 Pitt # 0.8 10 Normal 0.0-0.8 Eos # 0.0 10 Normal 0.0-0.5 Baso # 0.0 10 Normal 0.0-0.2 Cardiac Marker Panel 08/01/2021 [facility] CPK Creatine Phosphokinase 50 U/L Normal 26-192 CK-MB Value Mass < 1.0 NG/ML Normal <3.6 MB/CK Relative Index 2.00 Normal < Or =4 3 Troponin I < 0.02 NG/ML Normal < 0.10 4 Liver Profile 08/01/2021 [facility] Ast/Sgot 20 U/L Normal 7-37 Alt/SGPT 17 U/L Normal 12-78 Alkaline Phosphatase 93 U/L Normal 45-117 Bilirubin,Total 0.3 mg/dL Normal 0.2-1.0 Bilirubin,Direct < 0.1 mg/dL Normal 0.0-0.2 Total Protein 5.9 GM/DL Low 6.4-8.2 Albumin 2.7 GM/DL Low 3.2-5.2 Albumin/Globulin Ratio 0.8 Low 1.2-2.2 Laboratory test finding 08/01/2021 [facility] Lipase 74 U/L Normal 73-393 Lactic Acid Sepsis Protocol 2.2 mmol/L Critical high 0.4-2.0 5 1 Y/N query for Sepsis Lactate Rule: Y 2 FULL REPORT IN LAB NOTES (eC W and [facility]). ORGANISM 1: ESCHERICHIA COLI COLONY COUNT >100,000 ORGANISM 1: ESCHERICHIA COLI ESCHERICHIA COLI: REACTION TRIMETHOPRIM/SULFAMETHOXAZOLE IV 160mg TMP & 800mg SMXq6h <=20 S TRIMETHOPRIM/SULFAMETHOXAZOLE PO Bactrim DS Bid <=20 S AMPICILLIN IV 500mg q6h <=2 S AMPICILLIN PO 500mg q6h fasting <=2 S GENTAMICIN IV 80mg q8h <=1 S NITROFURANTOIN PO 100mg BID <=16 S CEFAZOLIN IV 1gm q8h <=4 S LEVOFLOXACIN IV 500mg qd <=0.12 S LEVOFLOXACIN PO 250mg qd <=0.12 S LEVOFLOXACIN PO 500mg qd <=0.12 S TOBRAMYCIN IV 80mg q8h <=1 S CEFTRIAXONE IV 1gm q24h <=1 S CEFTAZIDIME IV 1gm q8h <=1 S AMPICILLIN/SULBACTAM IV 1.5g q6h <=2 S PIPERACILLIN/TAZOBACTAM IV 2.25 gm q6h <=4 S AZTREONAM IV 1gm q8h <=1 S ERTAPENEM IV 1gm qd <=0.5 S MEROPENEM IV 1 gm q8h <=0.25 S MEROPENEM IV 500 mg q8h <=0.25 S TIGECYCLINE IV 50mg q12h <=0.5 S CEFEPIME IV 1 gm q12h <=1 S CEFEPIME IV 2 gm q12h <=1 S EXTD BRD SPCTRM BETA LACTAMASE IV NEGATIVE FOR ESBL 3 DIAGNOSIS CRITERIA MMB ng/ml Relative Index (RI) NON-AMI < or = 5 N/A DRUMMOND ZONE > 5 < or = 4 AMI > 5 > 4 4 Troponin I Reference Interva l for Kashmi LOCI: 99th Percentile= 0.00-0.045 ng/ml Risk Stratification: <= 0.10 ng/ml Decreased Risk for Adverse Clinical Events. 0.10-1.50 ng/ml Increased Risk for Adv erse Clinical Events. Evaluation of additional criterion and/or repeat testing in 2-6 hours is suggested to rule out myocardial damage. >= 1.50 ng/ml Indicative of Myocardial Injury. 5 Y/N query for Sepsis Lactate Rule: Y Procedures Date Code Description Status 07/14/2021 42638 Office/Outpatient Established Lo w MDM 20-29 Min Completed 05/12/2021 09071 Office/Outpatient Established Lo w MDM 20-29 Min Completed 04/09/2021 96878 Preventive Visit Est > 65 Yrs Co [...] South MD 07/14/2021 Z23 Encounter for immunization Daryni gildardo South MD 05/12/2021 F41.9 Anxiety disorder, unspecified [...] chance MD Plan of Treatment Future Appointment(s):* 09/10/2021 11:00 am - Pablito South MD at [facility] * 01/12/2022 11:00 am - Pablito South MD at [facility] Functional Status Description No Information Available Mental Status Description No Information Available Referrals Description No Information Available
--- NOTE | 2021-08-15 09:48 | REP ---
INDICATION: right flank pain r/o ureterolithiasis COMPARISON: 08/01/2021 TECHNIQUE: Axial noncontrast images from the lung bases to the pubic symphysis with coronal and sagittal reformations. This CT examination was performed using the following dose reduction techniques: Automated exposure control, adjustment of mA and/or kv according to the patient's size, and use of iterative reconstruction technique. FINDINGS: Lung bases demonstrate new small right pleural effusion and mild basilar atelectasis (right greater than left). Liver, spleen, pancreas, bilateral adrenal glands and kidneys are normal. No acute perinephric stranding, hydroureteronephrosis or nephroureterolithiasis. The enteric system demonstrates moderate fecal stasis and evidence for prior partial sigmoid resection without obstruction or acute inflammatory process. Pelvis demonstrates normal bladder and prior hysterectomy. No ascites. No free air. No adenopathy. No focal inflammatory stranding. Abdominal aorta demonstrates atherosclerotic changes without aneurysm. Musculoskeletal structures are intact and without acute osseous abnormality. IMPRESSION: No acute abdominopelvic pathology appreciated. Small right pleural effusion and basilar atelectasis represent new findings compared to 08/01/2021. <Electronically signed by Angel Fortune > 08/15/21 0924
[2021-08-15 10:22] LABS: BASO # 0.1 10^3/uL (0.0-0.2); BASO % 0.6 % (0.0-1.0); EOS % 0.5 % (0.0-3.0); HEMATOCRIT 36.8 % (36.0-47.0); HEMOGLOBIN 11.7 g/dl (12.0-15.5); LYMPH # 2.2 10^3/uL (1.5-5.0); LYMPH % 27.7 % (24.0-44.0); MEAN CORPUSCULAR HEMOGLOBIN 28.1 pg (27.0-33.0); MEAN CORPUSCULAR HGB CONC 31.8 g/dl (32.0-36.5); MEAN CORPUSCULAR VOLUME 88.5 fl (80.0-96.0); MONO # 0.6 10^3/uL (0.0-0.8); NEUTROPHILS % 63.7 % (36.0-66.0); PLATELET COUNT, AUTOMATED 261 10^3/uL (150-450); RED BLOOD COUNT 4.16 10^6/uL (4.00-5.40); WHITE BLOOD COUNT 7.9 10^3/uL (4.0-10.0)
[2021-08-15 10:34] LABS: BLOOD UREA NITROGEN 17 MG/DL (7-18); CALCIUM LEVEL 8.6 MG/DL (8.8-10.2); CARBON DIOXIDE LEVEL 23 MEQ/L (21-32); CHLORIDE LEVEL 108 MEQ/L (98-107); CREATININE FOR GFR 0.58 MG/DL (0.55-1.30); GLOMERULAR FILTRATION RATE > 60.0 (>39); GLUCOSE, FASTING 145 MG/DL (70-100); POTASSIUM SERUM 4.8 MEQ/L (3.5-5.1); SODIUM LEVEL 138 MEQ/L (136-145)
[2021-08-15] MEDS ORDERED: ISOVUE-370 76% 100ML VIAL As Ordered ONE (10:57)
--- NOTE | 2021-08-15 11:25 | REP ---
INDICATION: right pleuritic pain, new effusion, ro PE COMPARISON: None. TECHNIQUE: Axial contrast enhanced images from the thoracic inlet to the upper abdomen using pulmonary embolus technique with multiplanar re-formations. 75 ml Isovue 370 intravenous contrast material administered without complication. This CT examination was performed using the following dose reduction techniques: Automated exposure control, adjustment of mA and/or kv according to the patient's size, and use of iterative reconstruction technique. FINDINGS: Examination is suboptimal for evaluation of pulmonary embolus due to significant motion artifact. There is no evidence for pulmonary embolus involving the main or 1st order bilateral pulmonary arteries. The thoracic aorta demonstrates atherosclerotic changes without aneurysm or dissection. The lung rodriguez demonstrate trace atelectasis (right greater than left) and small right pleural effusion. Underlying chronic interstitial changes noted. Mediastinum demonstrates atherosclerotic changes to the coronary arteries without cardiomegaly or pericardial effusion. No significant adenopathy. Tracheobronchial tree appears patent. Surrounding musculoskeletal structures demonstrate age-related osteopenia and degenerative changes IMPRESSION: 1. Limited evaluation for pulmonary embolus as above. 2. Small right pleural effusion and minimal basilar atelectasis. <Electronically signed by Angel Fortune > 08/15/21 1129
[2021-08-15 11:42] LABS: NT-PRO BNP 143 PG/ML (<450)
[2021-08-15 11:49] LABS: CK-MB VALUE MASS < 1.0 NG/ML (<3.6); CPK CREATINE PHOSPHOKINASE 64 U/L (26-192); MB/CK RELATIVE INDEX 1.56 (< OR =4); TROPONIN I < 0.02 NG/ML (< 0.10)
[2021-08-15 13:15] VITALS: BP 128/62
== END 2021-08-15 13:20 | disposition home or self-care (01) ==
LOC: M ED 09:11
DX: M79.18 Myalgia, other site (principal); J90 Pleural effusion, not elsewhere classified; J98.11 Atelectasis; Z86.73 Personal history of transient ischemic attack (TIA), and cerebral infarction without residual deficits
CPT/HCPCS: 36415; 51701; 71275; 74176; 80048; 81001; 82550; 82553; 83880; 84484; 85025; 99284; Q9967

== ENCOUNTER 2021-09-20 07:55 | Emergency (ER) | payer MEDICARE ==
[~2021-09-20] VITALS: Ht 162.6 cm; Wt 73.1 kg
[~2021-09-20 07:55] MED LIST changes: -CEFD1CAP8 PO; +CEFD300C41 PO; -LISI-898 PO; +LISI5TAB11 PO; +LOSA25TA13 PO; -LOSA25TA14 PO
[2021-09-20] MEDS ORDERED: LIDOCAINE 2% 5ML JELLY UROJET TOP ONE (08:20)
[2021-09-20 08:48] LABS: BASO % 0.3 % (0.0-1.0); EOS % 0.2 % (0.0-3.0); HEMATOCRIT 37.9 % (36.0-47.0); HEMOGLOBIN 12.5 g/dl (12.0-15.5); LYMPH # 1.6 10^3/uL (1.5-5.0); LYMPH % 17.6 % (24.0-44.0); MEAN CORPUSCULAR HEMOGLOBIN 28.9 pg (27.0-33.0); MEAN CORPUSCULAR VOLUME 87.7 fl (80.0-96.0); MONO # 0.4 10^3/uL (0.0-0.8); MONO % 4.5 % (2.0-8.0); NEUTROPHILS # 6.8 10^3/uL (1.5-8.5); NEUTROPHILS % 76.1 % (36.0-66.0); PLATELET COUNT, AUTOMATED 188 10^3/uL (150-450); RED BLOOD COUNT 4.32 10^6/uL (4.00-5.40); WHITE BLOOD COUNT 8.9 10^3/uL (4.0-10.0)
[2021-09-20] MEDS ORDERED: NS 500 ML IV ONE (09:20)
[2021-09-20 09:23] LABS: ALBUMIN 3.4 GM/DL (3.2-5.2); ALT/SGPT 28 U/L (12-78); BILIRUBIN,DIRECT < 0.1 MG/DL (0.0-0.2); BILIRUBIN,TOTAL 0.3 MG/DL (0.2-1.0); TOTAL PROTEIN 6.3 GM/DL (6.4-8.2)
[2021-09-20 10:08] VITALS: O2SAT 98
[2021-09-20 11:05] VITALS: BP 141/70
== END 2021-09-20 11:08 | disposition home or self-care (01) ==
LOC: EDBD 07:55 → M ED 07:55
DX: S09.90XA Unspecified injury of head, initial encounter (principal); S16.1XXA Strain of muscle, fascia and tendon at neck level, initial encounter; W19.XXXA Unspecified fall, initial encounter; Y92.89 Other specified places as the place of occurrence of the external cause; I10 Essential (primary) hypertension; F03.90 Unspecified dementia, unspecified severity, without behavioral disturbance, psychotic disturbance, mood disturbance, and anxiety; E07.9 Disorder of thyroid, unspecified; K21.9 Gastro-esophageal reflux disease without esophagitis; Z79.899 Other long term (current) drug therapy; Z79.890 Hormone replacement therapy

== ENCOUNTER 2021-11-14 23:25 | Emergency (ER) | payer MEDICARE ==
[2021-11-15 00:31] LABS: BASO % 0.3 % (0.0-1.0); EOS % 0.1 % (0.0-3.0); HEMATOCRIT 42.4 % (36.0-47.0); HEMOGLOBIN 13.9 g/dl (12.0-15.5); LYMPH # 1.5 10^3/uL (1.5-5.0); LYMPH % 16.4 % (24.0-44.0); MEAN CORPUSCULAR HEMOGLOBIN 28.6 pg (27.0-33.0); MEAN CORPUSCULAR HGB CONC 32.8 g/dl (32.0-36.5); MEAN CORPUSCULAR VOLUME 87.2 fl (80.0-96.0); MONO # 0.6 10^3/uL (0.0-0.8); MONO % 6.6 % (2.0-8.0); NEUTROPHILS # 6.8 10^3/uL (1.5-8.5); PLATELET COUNT, AUTOMATED 217 10^3/uL (150-450); RED BLOOD COUNT 4.86 10^6/uL (4.00-5.40)
[2021-11-15 01:08] LABS: ALBUMIN 3.9 GM/DL (3.2-5.2); ALT/SGPT 22 U/L (12-78); BILIRUBIN,TOTAL 0.3 MG/DL (0.2-1.0); BLOOD UREA NITROGEN 12 MG/DL (7-18); CALCIUM LEVEL 9.1 MG/DL (8.8-10.2); CARBON DIOXIDE LEVEL 25 MEQ/L (21-32); CHLORIDE LEVEL 106 MEQ/L (98-107); CREATININE FOR GFR 0.71 MG/DL (0.55-1.30); GLOMERULAR FILTRATION RATE > 60.0 (>39); GLUCOSE, FASTING 180 MG/DL (70-100); POTASSIUM SERUM 4.1 MEQ/L (3.5-5.1); SODIUM LEVEL 140 MEQ/L (136-145); THYROID STIMULATING HORMONE 0.635 uIU/ML (0.358-3.740); TOTAL PROTEIN 7.6 GM/DL (6.4-8.2)
[2021-11-15 01:20] LABS: RSV AMPLIFICATION NEGATIVE (NEGATIVE)
[2021-11-15] MEDS ORDERED: NS 1,000 ML IV ONE (01:20)
[2021-11-15] MEDS ORDERED: LevoFLOXacin IV 750 MG in IV 1 EA IV ONE (04:00)
[2021-11-15] MEDS ORDERED: LEVO500T4 PO (06:21)
[2021-11-15 06:46] VITALS: BP 159/71
== END 2021-11-15 07:10 | disposition home or self-care (01) ==
LOC: M ED 23:25
DX: J18.9 Pneumonia, unspecified organism (principal); E86.0 Dehydration; I10 Essential (primary) hypertension; E78.5 Hyperlipidemia, unspecified; E03.9 Hypothyroidism, unspecified; F33.9 Major depressive disorder, recurrent, unspecified; F03.90 Unspecified dementia, unspecified severity, without behavioral disturbance, psychotic disturbance, mood disturbance, and anxiety; Z79.899 Other long term (current) drug therapy; Z79.890 Hormone replacement therapy
CPT/HCPCS: 71045; 80053; 81001; 83605; 84443; 85025; 87040; 87631; 93005; 96361; 96365; 96366; 99285; J1956